=== PATIENT | male | born 1930 | race Caucasian/White ===

== ENCOUNTER 2016-10-27 07:03 | Outpatient (CLI) | END 2016-10-27 07:04 | disposition home or self-care (01) ==

== ENCOUNTER 2017-01-13 09:04 | Outpatient (CLI) | payer MEDICARE, BC | END 2017-01-13 09:05 | disposition home or self-care (01) | DX: E11.9 Type 2 diabetes mellitus without complications (principal) ==

== ENCOUNTER 2017-02-23 14:31 | Emergency (ER) | payer MEDICARE, BC ==
[2017-02-23] MEDS ORDERED: TETANUS/DIPHTHERIA/PERTUSSIS 0.5 ML SYRINGE IM ONE ×2 (15:23→15:26)
== END 2017-02-23 15:54 | disposition home or self-care (01) ==
DX: S61.012A Laceration without foreign body of left thumb without damage to nail, initial encounter (principal); W45.8XXA Other foreign body or object entering through skin, initial encounter; I10 Essential (primary) hypertension; E11.9 Type 2 diabetes mellitus without complications; Z86.73 Personal history of transient ischemic attack (TIA), and cerebral infarction without residual deficits; N40.0 Benign prostatic hyperplasia without lower urinary tract symptoms; M19.90 Unspecified osteoarthritis, unspecified site; F17.200 Nicotine dependence, unspecified, uncomplicated

== ENCOUNTER 2017-07-05 17:17 | Emergency (ER) | payer MEDICARE, BC ==
[2017-07-05] MEDS ORDERED: SODIUM CHLORIDE 0.9% 1,000 ML IV ONE (17:34)
[2017-07-05] MEDS ORDERED: HYDROmorphone 1 MG/ML SYRINGE IVP STA (17:34)
[2017-07-05] MEDS ORDERED: ONDANSETRON 4 MG/2 ML VIAL IVP STA (17:34)
--- NOTE | 2017-07-05 17:37 | ED Physician Documentation ---
PD HPI ABD PAIN - Stated complaint Stated Complaint: NVD - Chief complaint Chief Complaint: Abd Pain - History obtained from History obtained from: Patient - History of Present Illness Timing - onset: Other (87-year-old gentleman with history of renal colic status post lithotripsy, remotely. Also history of laparoscopic cholecystectomy and umbilical hernia repair, diabetes and hypertension. He developed a relatively sudden onset left-sided abdominal pain which is nonradiating and associated with nausea and vomiting over the last couple of hours. He was fine this morning except for chronic diarrhea which is no worse than normal. He has not had any blood from either end and there is no fever associated with this.) Review of Systems Ten Systems: 10 systems reviewed and negative Constitutional: denies: Fever, Chills Nose: denies: Rhinorrhea / runny nose, Congestion Cardiac: denies: Chest pain / pressure, Palpitations Respiratory: denies: Dyspnea, Cough PD PAST MEDICAL HISTORY - Past Medical History Cardiovascular: Hypertension Respiratory: None Neuro: CVA Endocrine/Autoimmune: Type 2 diabetes GI: None : Benign prostate hypertrophy HEENT: Chronic hearing loss Psych: None Musculoskeletal: Osteoarthritis, Fatigue Derm: None - Past Surgical History Past Surgical History: Yes General: Cholecystectomy, Colonoscopy, EGD, Other Ortho: Knee replacement - Present Medications Home Medications: Ambulatory Orders Medication Instructions Recorded Confirmed Atorvastatin [Lipitor] 20 mg PO DAILY 07/05/17 07/05/17 Clopidogrel [Plavix] 75 mg PO DAILY 07/05/17 07/05/17 Escitalopram [Lexapro] 20 mg PO DAILY 07/05/17 07/05/17 Famotidine 20 mg PO DAILY 07/05/17 07/05/17 Latanoprost 0.005% Ophth Drops 1 drops EACHEYE DAILY 07/05/17 07/05/17 [Xalatan Ophth Drops] Oxycodone HCl/Acetaminophen 1 - 2 tab PO Q4H PRN #15 tablet 07/05/17 [Percocet 5-325 mg Tablet] Tamsulosin [Flomax] 0.4 mg PO DAILY #14 capsule 07/05/17 - Allergies Allergies/Adverse Reactions: Allergies Allergy/AdvReac Type Severity Reaction Status Date / Time No Known Drug Allergies Allergy Verified 02/23/17 14:39 - Social History Does the pt smoke?: Yes Smoking Status: Current every day smoker Does the pt drink ETOH?: Yes Does the pt have substance abuse?: No - Family History Family history: reports: Non contributory - Immunizations Immunizations are current?: No Immunizations: TDAP >10years/unknown - POLST Patient has POLST: No PD ED PE NORMAL - Vitals Vital signs reviewed: Yes - General General: Alert and oriented X 3, No acute distress - HEENT HEENT: PERRL, EOMI - Neck Neck: Supple, no meningeal sign, No bony TTP - Cardiac Cardiac: RRR, No murmur - Respiratory Respiratory: No respiratory distress, Clear bilaterally - Abdomen Abdomen: Other (Soft with normal bowel tones, mild tenderness in the left lower quadrant without surgical signs.) - Back Back: No CVA TTP, No spinal TTP - Derm Derm: Normal color, Warm and dry - Extremities Extremities: No edema, No calf tenderness / cord - Neuro Neuro: Alert and oriented X 3, filler operator 2-12 intact, No motor deficit, No sensory deficit, Normal speech - Psych Psych: Normal mood, Normal affect Results - Vitals Vitals: Vital Signs - 24 hr 07/05/17 07/05/17 07/05/17 17:20 18:58 20:47 Temperature 36.7 C Heart Rate 89 88 80 Respiratory 20 18 16 Rate Blood Pressure 165/87 H 160/81 H 176/87 H O2 Saturation 96 95 95 Oxygen O2 Source Room air - Labs Labs: Laboratory Tests 07/05/17 07/05/17 07/05/17 17:50 17:50 17:50 WBC 9.5 RBC 4.49 L Hgb 14.6 Hct 41.9 L MCV 93.2 MCH 32.4 H MCHC 34.8 RDW 14.0 Plt Count 147 MPV 7.8 Neut # 7.9 H Lymph # 1.0 L [place] # 0.5 Eos # 0.1 Baso # 0.1 Absolute Nucleated RBC 0.00 Nucleated RBCs 0.0 Sodium 135 Potassium 4.0 Chloride 103 Carbon Dioxide 24 Anion Gap 8.0 BUN 24 H Creatinine 1.0 Estimated GFR (MDRD) 71 L Glucose 165 H Lactic Acid 1.5 Calcium 8.9 Total Bilirubin 2.3 H AST 24 ALT 17 Alkaline Phosphatase 57 Total Protein 8.2 Albumin 4.1 Globulin 4.1 Albumin/Globulin Ratio 1.0 Lipase 25 Urine Color Urine Clarity Urine pH Ur Specific [place] Urine Protein Urine Glucose (UA) Urine Ketones Urine Occult Blood Urine Nitrite Urine Bilirubin Urine Urobilinogen Ur Leukocyte Esterase Urine RBC Urine WBC Ur Squamous Epith Cells Urine Bacteria Ur Microscopic Review Urine Culture Comments 07/05/17 19:05 WBC RBC Hgb Hct MCV MCH MCHC RDW Plt Count MPV Neut # Lymph # [place] # Eos # Baso # Absolute Nucleated RBC Nucleated RBCs Sodium Potassium Chloride Carbon Dioxide Anion Gap BUN Creatinine Estimated GFR (MDRD) Glucose Lactic Acid Calcium Total Bilirubin AST ALT Alkaline Phosphatase Total Protein Albumin Globulin Albumin/Globulin Ratio Lipase Urine Color BROWN Urine Clarity HAZY Urine pH 5.5 Ur Specific [place] 1.020 Urine Protein 30 H Urine Glucose (UA) NEGATIVE Urine Ketones NEGATIVE Urine Occult Blood LARGE H Urine Nitrite NEGATIVE Urine Bilirubin NEGATIVE Urine Urobilinogen 0.2 (NORMAL) Ur Leukocyte Esterase NEGATIVE Urine RBC TNTC H Urine WBC 0-3 Ur Squamous Epith Cells RARE Squamous Urine Bacteria Rare Ur Microscopic Review INDICATED Urine Culture Comments NOT INDICATED - Rads (name of study) ct a/p Radiology: EMP read contemporaneously (5 x 4 mm mid left ureteral stone with hydronephrosis and hydroureter. He does have extensive retroperitoneal and pelvic adenopathy concerning for malignancy.) PD MEDICAL DECISION MAKING - ED course ED course: 87-year-old gentleman presents with acute left-sided abdominal pain most reminiscent of renal colic and he does have a 5 x 4 mm mid left ureteral stone on CT. Pain was easily controlled with a single dose of narcotics. The incidental findings on CT specifically which are concerning for potential malignancy were discussed with him and follow-up with his primary care physician will be obtained. Departure - Departure Disposition: 01 Home, Self Care Clinical Impression: Renal colic on left side, Retroperitoneal lymphadenopathy Condition: Good Record reviewed to determine appropriate education?: Yes Instructions: ED Stone Renal W Colic Prescriptions: Tamsulosin [Flomax] 0.4 mg PO DAILY #14 capsule Oxycodone HCl/Acetaminophen [Percocet 5-325 mg Tablet] 1 - 2 tab PO Q4H PRN #15 tablet PRN Reason: Pain Comments: FOLLOWUP WITH DR VAZQUEZ REGARDING YOUR RETROPERITONEAL LYMPHADENOPATHY WHICH COULD BE CANCEROUS. ALSO A UROLOGIST FOR YOUR KIDNEY STONES- THE CLOSEST IS IN [place] IF THE PAIN IS NOT GONE IN A FEW DAYS Your blood pressure was elevated today on check into the emergency department. This does not mean that you have hypertension, it is a common phenomenon to come to the emergency department and have elevated blood pressure. I recommend that she see your primary care physician within the week to have it rechecked when you are feeling better. Do not drink or drive while taking narcotic pain medication. Note that many narcotic pain relievers also contain Tylenol/acetaminophen. Please ensure that your total dose of acetaminophen from all sources does not exceed 3 g (3000 mg) per day. You may get constipated while on this medication. Take a stool softener such as Colace twice a day while you are on it. Also add an xdio-alu-qzxrhxn laxative such as senna or MiraLAX on any day that you do not have a bowel movement. If you received a narcotic pain medication or sedative while in the emergency department, do not drive for the next 24 hours. Discharge Date/Time: 07/05/17 20:48
[2017-07-05] MEDS ORDERED: HYDROmorphone 1 MG/ML SYRINGE ONE (17:41)
[2017-07-05] MEDS ORDERED: ONDANSETRON 4 MG/2 ML VIAL ONE (17:41)
[2017-07-05 18:04] LABS: BASOPHILS # (AUTO) 0.1 10^3/uL (0.0-0.1); BASOPHILS % (AUTO) 0.5 %; EOSINOPHILS # (AUTO) 0.1 10^3/uL (0.0-0.7); EOSINOPHILS % (AUTO) 1.1 %; HCT - HEMATOCRIT 41.9 % (42.0-52.0); HGB - HEMOGLOBIN 14.6 g/dL (14.0-18.0); MEAN CORPUSCULAR HEMOGLOBIN 32.4 pg (27.0-31.0); MEAN CORPUSCULAR HGB CONC 34.8 g/dL (32.0-36.0); MEAN CORPUSCULAR VOLUME 93.2 fL (80.0-94.0); MEAN PLATELET VOLUME 7.8 fL (7.4-11.4); MONOCYTES # (AUTO) 0.5 10^3/uL (0.0-1.0); MONOCYTES % (AUTO) 5.3 %; NEUTROPHILS # (AUTO) 7.9 10^3/uL (1.5-6.6); NEUTROPHILS % (AUTO) 83.1 %; RED BLOOD COUNT 4.49 10^6/uL (4.70-6.10); UNCORRECTED WHITE BLOOD COUNT 9.5 x10^3/uL; WHITE BLOOD COUNT 9.5 x10^3/uL (4.8-10.8)
[2017-07-05 18:16] LABS: BILIRUBIN,TOTAL 2.3 mg/dL (0.2-1.0); CALCIUM 8.9 mg/dL (8.5-10.3); TOTAL PROTEIN 8.2 g/dL (6.7-8.2)
[2017-07-05] MEDS ORDERED: IOPAMIDOL-300 100 ML VIAL IVP ONE (19:01)
[2017-07-05 19:13] LABS: BILIRUBIN,URINE NEGATIVE (NEGATIVE); PH,URINE 5.5 PH (5.0-7.5)
[2017-07-05 19:14] LABS: UA w/ MICROSCOPIC CHARGE YES
[2017-07-05 19:19] LABS: UR CULTURE IF IND NOT INDICATED; WBC,URINE 0-3 /HPF (0-3)
--- NOTE | 2017-07-05 20:18 | CT Preliminary Report ---
Exam: CT Abdomen/Pelvis W/ IMPRESSION: 1. Obstructing 5 x 4 mm mid left ureteral stone results in marked left hydroureter and hydronephrosis . Nonobstructing right-sided renal stones. No enhancing renal mass. 2. Extensive retroperitoneal and pelvic adenopathy. Statistically, in a patient of this age group, pr ostate cancer is high on the differential. Additional diagnostic considerations include lymphoma. Cor relate with history of malignancy. 3. Gallbladder surgically absent. Common bile duct is dilated. Mild pancreatic atrophy. If the patien t has abnormal LFTs, consider obtaining MRI of the abdomen with a liver/pancreas protocol. [facility] SITE ID: [id number]
[2017-07-05] MEDS ORDERED: TAMSULOSIN 0.4 MG CAPSULE PO STA (20:26)
[2017-07-05] MEDS ORDERED: oxyCODONE/ACET 5/325 Prepack 4 PO STA (20:26)
--- NOTE | 2017-07-05 20:40 | CT Report ---
EXAM: CT ABDOMEN AND PELVIS EXAM DATE: 07/05/2017 06:50 PM. CLINICAL HISTORY: IV only, L abd pain. COMPARISONS: 12/25/2012. TECHNIQUE: Routine helical CT imaging was performed through the abdomen and pelvis. IV contrast: 100 mL Isovue-300. Enteric contrast: No. Reconstructions: Coronal and sagittal. In accordance with CT protocol optimization, one or more of the following dose reduction techniques w ere utilized for this exam: automated exposure control, adjustment of mA and/or KV based on patient s ize, or use of iterative reconstructive technique. FINDINGS: Lung Bases: Elevated right hemidiaphragm with mild right lower lobe atelectasis. Evaluation of the lauren ng parenchyma limited due to respiratory artifacts. Small hiatal hernia. Mild cardiac enlargement. Co ronary artery disease in the left anterior descending coronary artery. No pericardial effusion. Liver: Mild intrahepatic and central biliary dilation. Common bile duct measures 1.3 cm. Gallbladder surgically absent. No liver mass. 1 cm low-density left liver cyst on image 25. Gallbladder/Bile Ducts: Unremarkable. Spleen: Normal. Pancreas: Pancreas is mildly atrophic. No pancreatic calcifications identified. No definite pancreati c head mass. No peripancreatic inflammation. Adrenal Glands: Normal. Kidneys: Obstructing 5 x 4 mm mid left ureteral stone on image 69 results in marked left hydronephros is and perinephric fat stranding. No left-sided enhancing renal mass or nonobstructing renal stones. Remainder of the left ureter is otherwise unremarkable. No right renal mass. Mild right perinephric f at stranding. No right-sided hydronephrosis. 4 mm mid right and 4.5 mm right inferior nonobstructing renal stones. No obstructing right ureteral stone. Peritoneal Cavity/Bowel: Extensive retroperitoneal and pelvic adenopathy. Residential Property Manager nodes includ e the followin. 2.5 x 2 cm left pelvic sidewall node, image 83. 2. 1.9 x 3.7 cm right pelvic sidewall/external iliac node on image 85. 3. Left 2.8 x 3.4 cm periaortic node at the L2-L3 level, image 3, 49. Extensive diverticulosis centered in the sigmoid region. Mild wall thickening is present in the mid a nd proximal sigmoid and mid and distal left colon without significant adjacent stranding. Moderate th ickening is present in the distal small bowel loop as seen on image 5, 13. No pneumatosis or pneumope ritoneum are noted. No loculated fluid collections concerning for an abscess. Mild mesenteric strandi ng of unclear significance present particularly in the pelvis. No significant ascites. Pelvic Organs: Marked enlargement of the prostate and seminal vesicles. Coarse prostate calcification s are noted. Low density ill-defined regions are seen in the anterior prostate gland on image 94. Vasculature: Diffuse atheromatous plaques are present in the abdominal aorta and branch vessels. No a neurysm. Normal IVC. Bones: No significant abnormality. Other: None. IMPRESSION: 1. Obstructing 5 x 4 mm mid left ureteral stone results in marked left hydroureter and hydronephrosis . Nonobstructing right-sided renal stones. No enhancing renal mass. 2. Extensive retroperitoneal and pelvic adenopathy. Statistically, in a patient of this age group, pr ostate cancer is high on the differential. Additional diagnostic considerations include lymphoma. Cor relate with history of malignancy. 3. Gallbladder is surgically absent. Common bile duct is dilated. Mild pancreatic atrophy. If the pat ient has abnormal LFTs, consider obtaining MRI of the abdomen with a liver/pancreas protocol. [facility] Referring Provider Line: [phone] SITE ID: [id number]
[2017-07-05] MEDS ORDERED: oxyCODONE/ACET 5/325 Prepack 4 PO ONE (20:41)
[2017-07-05] MEDS ORDERED: TAMSULOSIN 0.4 MG CAPSULE ONE (20:41)
[2017-07-05 20:48] VITALS: BP 176/87
== END 2017-07-05 20:48 | disposition home or self-care (01) ==
LOC: ED 17:17
DX: N20.1 Calculus of ureter (principal); R59.1 Generalized enlarged lymph nodes; I10 Essential (primary) hypertension; F17.200 Nicotine dependence, unspecified, uncomplicated; Z86.73 Personal history of transient ischemic attack (TIA), and cerebral infarction without residual deficits; Z96.659 Presence of unspecified artificial knee joint
CPT/HCPCS: 36415; 74177; 80053; 81001; 83605; 83690; 85025; 96374; 96375; 99283; 99284; A9270; J1170; Q9967; 81003; 87086

== ENCOUNTER 2017-07-11 15:07 | Outpatient (CLI) | payer MEDICARE, BC ==
[2017-07-11 21:03] LABS: PSA FREE 43.55 ng/mL (0.16-2.81)
== END 2017-07-11 15:08 | disposition home or self-care (01) ==
LOC: LAB.R 15:07
PROVIDERS: ATTEND Internal Medicine
DX: R59.0 Localized enlarged lymph nodes (principal)
CPT/HCPCS: 84154

== ENCOUNTER 2017-07-16 13:29 | Outpatient (CLI) | payer MEDICARE, BC | END 2017-07-16 13:30 | disposition EMS.NT | LOC: EMS 13:29 | PROVIDERS: ATTEND Surgery | DX: Z03.89 Encounter for observation for other suspected diseases and conditions ruled out (principal); W06.XXXA Fall from bed, initial encounter; Y92.003 Bedroom of unspecified non-institutional (private) residence as the place of occurrence of the external cause ==

== ENCOUNTER 2017-09-09 08:56 | Outpatient (CLI) | payer MEDICARE, BC ==
--- NOTE | 2017-09-10 16:14 | Nuclear Medicine Report ---
REVISED: THIS REPORT WAS ORIGINALLY SIGNED ON 09/10/2017 @ 1614. EXAM CODE REVISED ON 09/12/2017. EXAM: BONE SCAN EXAM DATE: 09/09/2017 01:17 PM. CLINICAL HISTORY: Metastatic prostate cancer. COMPARISON: CT 07/05/2017. TECHNIQUE: Following the intravenous administration of 32.5 mCi of technetium 99m MDP and an appropriate delay, a whole-body scan was performed in anterior and posterior projections. Site-specific spot views of the region of interest were obtained in various projections. FINDINGS: Exam Quality: Normal overall osseous radiotracer uptake. Physiological tracer uptake in bilateral collecting systems. Skull: No focal uptake. Thorax: Small foci of mzqu-uk-umiutbei increased activity right lateral seventh and eighth ribs. Pelvis: No focal lesions. Spine: Small focus of moderate activity left posterior T7 vertebra versus costovertebral junction. Mild increased activity L4-L5 and L5-S1 disks and facets, likely degenerative. Lower extremities: Bilateral knee arthroplasty defects. No abnormal activity. IMPRESSION: 1. The 2 adjacent foci of right anterolateral rib activity are more likely rib fractures. 2. Left T7 vertebral/costovertebral junction activity is indeterminate and may either represent an additional fracture of the posterior rib origin versus bony metastasis. No correlative lesion seen on the recent CT. [facility] Referring Provider Line: [phone] SITE ID: [id number]
== END 2017-09-09 08:57 | disposition home or self-care (01) ==
LOC: DI 08:56
PROVIDERS: ATTEND Internal Medicine Hematology & Oncology
DX: C61 Malignant neoplasm of prostate (principal)
CPT/HCPCS: 78306; A9503; 78305

== ENCOUNTER 2017-10-18 08:00 | Outpatient (CLI) | payer MEDICARE, BC ==
[2017-10-18 16:22] LABS: ALBUMIN/GLOBULIN RATIO 1.3 (1.0-2.2); BILIRUBIN,TOTAL 2.1 mg/dL (0.2-1.0); BUN - BLOOD UREA NITROGEN 25 mg/dL (6-20); CALCIUM 9.4 mg/dL (8.5-10.3); CARBON DIOXIDE - CO2 28 mmol/L (21-32); CHLORIDE 101 mmol/L (101-111); CHOLESTEROL 90 mg/dL; CREATININE 0.9 mg/dL (0.6-1.2); GFR - MDRD 80 (>89); GLUCOSE 117 mg/dL (70-100); HDL CHOLESTEROL 46 mg/dL; LDL/HDL RATIO 0.5 (<3.6); POTASSIUM 4.1 mmol/L (3.5-5.0); SODIUM 137 mmol/L (135-145); TOTAL PROTEIN 7.9 g/dL (6.7-8.2); TRIGLYCERIDES 111 mg/dL; VLDL CHOLESTEROL 22 mg/dL
[2017-10-18 16:48] LABS: BASOPHILS % (AUTO) 0.6 %; EOSINOPHILS # (AUTO) 0.3 10^3/uL (0.0-0.7); EOSINOPHILS % (AUTO) 4.6 %; HCT - HEMATOCRIT 38.1 % (42.0-52.0); HGB - HEMOGLOBIN 13.3 g/dL (14.0-18.0); LYMPHOCYTES # (AUTO) 1.6 10^3/uL (1.5-3.5); LYMPHOCYTES % (AUTO) 25.2 %; MEAN CORPUSCULAR HEMOGLOBIN 32.5 pg (27.0-31.0); MEAN CORPUSCULAR VOLUME 92.9 fL (80.0-94.0); MEAN PLATELET VOLUME 8.2 fL (7.4-11.4); MONOCYTES # (AUTO) 0.4 10^3/uL (0.0-1.0); MONOCYTES % (AUTO) 7.1 %; NEUTROPHILS % (AUTO) 62.5 %; RED CELL DISTRIBUTION WIDTH 14.1 % (12.0-15.0); UNCORRECTED WHITE BLOOD COUNT 6.3 x10^3/uL; WHITE BLOOD COUNT 6.3 x10^3/uL (4.8-10.8)
[2017-10-18 18:13] LABS: HEMOGLOBIN A1C 0.51 g/dL
== END 2017-10-18 08:01 | disposition home or self-care (01) ==
LOC: LAB.R 08:00
PROVIDERS: ATTEND Internal Medicine
DX: K27.9 Peptic ulcer, site unspecified, unspecified as acute or chronic, without hemorrhage or perforation (principal); E11.9 Type 2 diabetes mellitus without complications; I63.9 Cerebral infarction, unspecified; M10.9 Gout, unspecified; Z79.899 Other long term (current) drug therapy
CPT/HCPCS: 80053; 80061; 83036; 85025

== ENCOUNTER 2018-01-27 17:15 | Outpatient (CLI) | payer MEDICARE, BC | END 2018-01-27 17:16 | disposition EMS.NT | LOC: EMS 17:15 | PROVIDERS: ATTEND Surgery | DX: Z03.89 Encounter for observation for other suspected diseases and conditions ruled out (principal) ==

== ENCOUNTER 2018-03-06 19:10 | Emergency (ER) | payer MEDICARE, BC ==
--- NOTE | 2018-03-06 19:56 | ED Physician Documentation ---
PD HPI TRUNK INJURY - Stated complaint Stated Complaint: GLF - CHEST DISCOMFORT - Chief complaint Chief Complaint: General - History obtained from History obtained from: Patient, Family - History of Present Illness Location: Anterior chest, Right chest, Other (also bumped his head) Type of injury: Fall (he says he lost balance and fell in the garage. Has general weakness and poor balance for awhile, per . Uses walker.) Timing - onset: Today (at 3 pm, with pain right anterolateral chest.) Timing - duration: Hours (4) Timing - details: Abrupt onset, Still present Quality: Pain, Aching Worsened by: Moving, Palpating, Other (deep breathing) Associated symtptoms: Weakness (generalized). No: Numbness, Tingling, Swelling Contributing factors: Anticoagulated. No: Work related Where injury occured: Home Similar symptoms before: Has not had sx before Recently seen: Not recently seen Review of Systems Constitutional: denies: Fever, Chills Nose: denies: Rhinorrhea / runny nose, Congestion Throat: denies: Sore throat Cardiac: denies: Palpitations Respiratory: denies: Dyspnea, Cough, Wheezing GI: denies: Abdominal Pain, Nausea, Vomiting, Diarrhea, Bloody / black stool : denies: Dysuria, Frequency Skin: reports: Abrasion (s) (right fingers with the fall, also on right knee.) Neurologic: reports: Generalized weakness, Head injury. denies: Focal weakness , Numbness, Difficulty speaking, Confused, Altered mental status, Headache, LOC Psychiatric: denies: Anxiety, Insomnia PD PAST MEDICAL HISTORY - Past Medical History Past Medical History: Yes Cardiovascular: Hypertension Respiratory: None Neuro: CVA Endocrine/Autoimmune: Type 2 diabetes GI: None : Benign prostate hypertrophy HEENT: Chronic hearing loss Psych: None Musculoskeletal: Osteoarthritis, Fatigue Derm: None Other Past Medical History: USES A WALKER.... - Past Surgical History Past Surgical History: Yes General: Cholecystectomy, Colonoscopy, EGD, Other Ortho: Knee replacement - Present Medications Home Medications: Ambulatory Orders Medication Instructions Recorded Confirmed Atorvastatin [Lipitor] 20 mg PO DAILY 07/05/17 03/06/18 Clopidogrel [Plavix] 75 mg PO DAILY 07/05/17 03/06/18 Escitalopram [Lexapro] 20 mg PO DAILY 07/05/17 03/06/18 Latanoprost 0.005% Ophth Drops 1 drops EACHEYE DAILY 07/05/17 03/06/18 [Xalatan Ophth Drops] Allopurinol 150 mg PO DAILY 09/06/17 03/06/18 Cholecalciferol (Vitamin D3) 1,000 unit PO DAILY 09/06/17 03/06/18 [Vitamin D3] Loperamide HCl [Anti-Diarrheal] 2 mg PO DAILY PRN 09/06/17 03/06/18 Loratadine 10 mg PO DAILY 09/06/17 03/06/18 Multivitamin [Multivitamins] 1 tab PO DAILY 09/06/17 03/06/18 Tramadol HCl 50 mg PO Q6H PRN #15 tablet 03/06/18 - Allergies Allergies/Adverse Reactions: Allergies Allergy/AdvReac Type Severity Reaction Status Date / Time No Known Drug Allergies Allergy Verified 03/06/18 19:17 - Social History Does the pt smoke?: Yes Smoking Status: Current every day smoker Does the pt drink ETOH?: Yes Does the pt have substance abuse?: No - Immunizations Immunizations are current?: No Immunizations: TDAP >10years/unknown - POLST Patient has POLST: No PD ED PE NORMAL - Vitals Vital signs reviewed: Yes - General General: Alert and oriented X 3, No acute distress, Well developed/nourished - HEENT HEENT: Pharynx benign - Neck Neck: Supple, no meningeal sign, No adenopathy - Cardiac Cardiac: RRR, No murmur - Respiratory Respiratory: Clear bilaterally, Other (right chest wall anterolateral at level of ribs 4-6 with local tenderness. No crepitance. ) - Abdomen Abdomen: Soft, Non tender, Non distended - Back Back: No CVA TTP - Derm Derm: Normal color, Warm and dry - Extremities Extremities: No deformity, No tenderness to palpate, Normal ROM s pain, No edema , Other (anterior knee with abrasion, no effusion and good ROM. Right fingers with abrasions on knuckles, but good ROM and rotor plate washer. No bony tenderness. ) - Neuro Neuro: Alert and oriented X 3, No motor deficit, Normal speech Eye Opening: Spontaneous Motor: Obeys Commands Verbal: Oriented GCS Score: 15 Results - Vitals Vitals: Vital Signs - 24 hr 03/06/18 03/06/1818 19:13 19:26 20:01 Temperature 37.3 C Heart Rate 100 96 94 Respiratory 18 17 20 Rate Blood Pressure 139/79 H 158/100 H 128/78 O2 Saturation 97 97 95 03/06/18 03/06/18 03/06/18 20:10 20:30 20:41 Temperature Heart Rate 93 93 Respiratory 18 19 19 Rate Blood Pressure 116/61 O2 Saturation 96 94 03/06/18 03/06/18 03/06/18 21:07 21:36 21:37 Temperature Heart Rate 91 89 90 Respiratory 18 18 Rate Blood Pressure 142/75 H 114/73 O2 Saturation 95 95 03/06/18 22:10 Temperature Heart Rate 89 Respiratory 18 Rate Blood Pressure 116/77 O2 Saturation 95 Oxygen O2 Source Room air - Rads (name of study) head CT Radiology: Prelim report reviewed (no ICH; prior CVA noted), EMP read contemporaneously chest CT Radiology: Prelim report reviewed (no fractures, no organ injury. ) Departure - Departure Disposition: 01 Home, Self Care Clinical Impression: Accidental fall Qualifiers: Encounter type: initial encounter Qualified Code(s): W19.XXXA - Unspecified fall, initial encounter Chest wall contusion Qualifiers: Encounter type: initial encounter Laterality: right Qualified Code(s): S20.211A - Contusion of right front wall of thorax, initial encounter Finger abrasion Qualifiers: Encounter type: initial encounter Qualified Code(s): S60.419A - Abrasion of unspecified finger, initial encounter Condition: Stable Record reviewed to determine appropriate education?: Yes Instructions: ED Contusion Chest Wall Follow-Up: Charles Kelly MD [Primary Care Provider] - Prescriptions: Tramadol HCl 50 mg PO Q6H PRN #15 tablet PRN Reason: Pain Comments: There is no signs of fractures or lung injury on the CT scan. It will certainly be sore in the chest wall just from the fall. Use Tylenol if needed for pains 4 times a day. Add tramadol if needed for worse pain. This should improve over the next several days. Follow-up if worsening problems. Cleanse the finger abrasions daily or twice daily and apply ointment and keep them clean.
[2018-03-06] MEDS ORDERED: MORPHINE 10 MG/ML VIAL IVP STA (20:16)
[2018-03-06] MEDS ORDERED: ONDANSETRON 4 MG/2 ML VIAL IVP STA (20:16)
[2018-03-06] MEDS ORDERED: IOPAMIDOL-300 100 ML VIAL ONE (20:34)
[2018-03-06] MEDS ORDERED: IOPAMIDOL-300 100 ML VIAL IVP ONE (21:02)
--- NOTE | 2018-03-06 21:56 | CT Report ---
EXAM: CT HEAD EXAM DATE: 03/06/2018 09:05 PM. CLINICAL HISTORY: Fell and struck head; on Plavix. COMPARISON: 05/19/2016. TECHNIQUE: Multiaxial CT images were obtained from the foramen magnum to the vertex. Reformats: Coron al. IV contrast: None. In accordance with CT protocol optimization, one or more of the following dose reduction techniques w ere utilized for this exam: automated exposure control, adjustment of mA and/or KV based on patient s ize, or use of iterative reconstructive technique. FINDINGS: Parenchyma: 4 cm area of cortical and subcortical encephalomalacia at the right frontal operculum and upper anterior right insula, new since 2015. Small area of chronic cortical encephalomalacia at the right posterior parietal convexity, as before. Extensive patchy hypodensity in the bilateral cerebral white matter and to a lesser extent bilateral basal ganglia consistent with chronic small vessel isc hemic change, progressive since 2016. No high-density lesions. No mass effect. Mercado-white differentia tion otherwise is intact. Extraaxial Spaces: Normal for age. No subdural or epidural collections identified. Ventricles: Mild generalized ventriculomegaly, as before. Sinuses and Orbits: Imaged paranasal sinuses, orbits, and mastoids show no significant abnormality. Bones: No evidence of fracture or calvarial defect. Other: No scalp hematoma is identified. Bilateral cataract surgery. Mild calcification in bilateral c avernous internal carotid arteries and proximal intracranial bilateral vertebral arteries. IMPRESSION: 1. No intracranial hemorrhage. 2. 4 cm chronic infarct at the right frontal operculum and adjacent anterosuperior right insula, new since 2015. 3. Small chronic cortical infarct posterior right parietal convexity, as before. 4. Extensive chronic small vessel ischemic change bilaterally, progressive since 2016. [facility] Referring Provider Line: [phone] SITE ID: [id number]
--- NOTE | 2018-03-06 21:56 | CT Preliminary Report ---
Exam: CT HEAD W/O IMPRESSION: 1. No intracranial hemorrhage. 2. 4 cm chronic infarct at the right frontal operculum and adjacent anterosuperior right insula, new since 2016. 3. Small chronic cortical infarct posterior right parietal convexity, as before. 4. Extensive chronic small vessel ischemic change bilaterally, progressive since 2016. [facility] SITE ID: [id number]
--- NOTE | 2018-03-06 22:05 | CT Report ---
EXAM: CT CHEST EXAM DATE: 03/06/2018 09:05 PM. CLINICAL HISTORY: Fall and struck right chest; on Plavix. COMPARISONS: CT abdomen and pelvis 07/05/2017, chest radiograph 11/26/2014. TECHNIQUE: Routine helical CT imaging was performed through the chest. IV contrast: 80 cc Isovue 300. Reconstructions: Coronal and sagittal. In accordance with CT protocol optimization, one or more of the following dose reduction techniques w ere utilized for this exam: automated exposure control, adjustment of mA and/or KV based on patient s ize, or use of iterative reconstructive technique. FINDINGS: Lungs/Pleura: Mild right hemidiaphragm elevation, as before. Mild dependent opacity at right greater than left lung bases similar to before most consistent with atelectasis. No interstitial abnormality. No emphysema. Expiratory phase central airways are noted. No pleural fluid or pneumothorax. Mediastinum: Heart size is normal. Mild calcified plaque in the normal caliber thoracic and upper abd ominal aorta. Central pulmonary arteries are normal in size. Lower thyroid gland and esophagus are un remarkable. There are shotty mediastinal lymph nodes, nonspecific. Bones: There is a small left posterior superior T7 vertebral body bone island. No right rib fracture is identified. Visualized Abdomen: Gallbladder is surgically absent. As before, there are at least 2 subcentimeter c ircumscribed hypodensities in the liver suggesting cysts. There is no significant biliary ductal dila tation. There are small right intrarenal calculi without hydronephrosis. There is no free fluid or fr ee air. There is incompletely visualized mild left greater than right intrarenal periaortic lymphaden opathy which appears decreased from before. Other: No chest wall hematoma is identified. IMPRESSION: 1. No evidence of injury in the chest. 2. Mild right hemidiaphragm elevation and mild right basilar atelectasis, as before. 3. Incompletely visualized retroperitoneal lymphadenopathy which appears decreased, presumably treate d neoplasm. There is also some shotty mediastinal lymphadenopathy, not visualized on the prior CT abd omen pelvis. 4. Nonobstructing right nephrolithiasis. [facility] Referring Provider Line: [phone] SITE ID: [id number]
[2018-03-06 22:11] VITALS: BP 116/77
== END 2018-03-06 22:34 | disposition home or self-care (01) ==
LOC: ED 19:10
DX: S20.211A Contusion of right front wall of thorax, initial encounter (principal); S60.419A Abrasion of unspecified finger, initial encounter; W18.39XA Other fall on same level, initial encounter; Y92.009 Unspecified place in unspecified non-institutional (private) residence as the place of occurrence of the external cause; I10 Essential (primary) hypertension; E11.9 Type 2 diabetes mellitus without complications; M19.90 Unspecified osteoarthritis, unspecified site; N40.0 Benign prostatic hyperplasia without lower urinary tract symptoms; Z86.73 Personal history of transient ischemic attack (TIA), and cerebral infarction without residual deficits; Z79.02 Long term (current) use of antithrombotics/antiplatelets; F17.200 Nicotine dependence, unspecified, uncomplicated
CPT/HCPCS: 70450; 71260; 93005; 96374; 96375; 99283; 99284; Q9967

== ENCOUNTER 2018-03-19 16:33 | Outpatient (CLI) | payer MEDICARE, BC | END 2018-03-19 16:34 | disposition critical access hospital (66) | LOC: EMS 16:33 | PROVIDERS: ATTEND Surgery | DX: M54.5 Low back pain (principal); W18.30XA Fall on same level, unspecified, initial encounter; Y92.000 Kitchen of unspecified non-institutional (private) residence as the place of occurrence of the external cause | CPT/HCPCS: A0425; A0429 ==

== ENCOUNTER 2018-03-19 16:42 | Emergency (ER) | payer MEDICARE, BC ==
[2018-03-19 16:49] VITALS: BP 136/72
--- NOTE | 2018-03-19 17:24 | ED Physician Documentation ---
PD HPI Fall - Stated complaint Stated Complaint: FALL - Chief complaint Chief Complaint: Back Pain - History obtained from History obtained from: Patient, Family, EMS - History of Present Illness Mechanism of injury: Tripped Where injury occurred: Home Pain level max: 8 Pain level now: 5 Quality of pain: Pain Associated symptoms: No: LOC, Neck pain, Weakness, Paresthesias, Dyspnea, Nausea / vomiting, Hematemesis Symptoms improve with: Rest Worsens with: Movement Contributing factors: Anticoagulated (plavix) - Additional information Additional information: Patient was bending over and lost his balance when he stood up. States fell and injured his back. Did not strike his head. Denies vomiting. No LOC. no numbness or weakness. No headache. no lightheadedness. Review of Systems Constitutional: denies: Fever, Chills Respiratory: denies: Cough GI: denies: Abdominal Pain, Nausea, Vomiting, Diarrhea Skin: denies: Rash Musculoskeletal: denies: Neck pain Neurologic: denies: Focal weakness, Numbness, Confused, Altered mental status, Headache PD PAST MEDICAL HISTORY - Past Medical History Past Medical History: Yes Cardiovascular: Hypertension Respiratory: None Neuro: CVA Endocrine/Autoimmune: Type 2 diabetes GI: None : Benign prostate hypertrophy HEENT: Chronic hearing loss Psych: None Musculoskeletal: Osteoarthritis, Fatigue Derm: None - Past Surgical History Past Surgical History: Yes General: Cholecystectomy, Colonoscopy, EGD, Other Ortho: Knee replacement - Present Medications Home Medications: Ambulatory Orders Medication Instructions Recorded Confirmed Atorvastatin [Lipitor] 20 mg PO DAILY 07/05/17 03/07/18 Clopidogrel [Plavix] 75 mg PO DAILY 07/05/17 03/07/18 Escitalopram [Lexapro] 20 mg PO DAILY 07/05/17 03/07/18 Latanoprost 0.005% Ophth Drops 1 drops EACHEYE DAILY 07/05/17 03/07/18 [Xalatan Ophth Drops] Allopurinol 150 mg PO DAILY 09/06/17 03/07/18 Cholecalciferol (Vitamin D3) 1,000 unit PO DAILY 09/06/17 03/07/18 [Vitamin D3] Loperamide HCl [Anti-Diarrheal] 2 mg PO DAILY PRN 09/06/17 03/07/18 Loratadine 10 mg PO DAILY 09/06/17 03/07/18 Multivitamin [Multivitamins] 1 tab PO DAILY 09/06/17 03/07/18 Tramadol HCl 50 mg PO Q6H PRN #15 tablet 03/06/18 03/07/18 Hydrocodone/Acetaminophen 1 - 2 each PO Q6H PRN #14 tablet 03/19/18 [Hydrocodon-Acetaminophen 5-325] - Allergies Allergies/Adverse Reactions: Allergies Allergy/AdvReac Type Severity Reaction Status Date / Time No Known Drug Allergies Allergy Verified 03/06/18 19:17 - Social History Does the pt smoke?: Yes Smoking Status: Current every day smoker Does the pt drink ETOH?: Yes Does the pt have substance abuse?: No - Immunizations Immunizations are current?: No Immunizations: TDAP >10years/unknown - POLST Patient has POLST: No PD ED PE NORMAL - Vitals Vital signs reviewed: Yes - General General: Alert and oriented X 3, No acute distress - HEENT HEENT: PERRL, Moist mucous membranes - Neck Neck: Supple, no meningeal sign, No bony TTP - Cardiac Cardiac: RRR - Respiratory Respiratory: No respiratory distress, Clear bilaterally - Abdomen Abdomen: Soft, Non tender, Non distended - Back Back: Other (mild low lumbar ttp around L4-L5. no upper L spine TTP. No stepoff or deformity.) - Derm Derm: Warm and dry, No rash - Extremities Extremities: No deformity, No tenderness to palpate, Normal ROM s pain - Neuro Neuro: Alert and oriented X 3, supervising producer 2-12 intact, No motor deficit, No sensory deficit, Normal speech Eye Opening: Spontaneous Motor: Obeys Commands Verbal: Oriented GCS Score: 15 Results - Vitals Vitals: Vital Signs - 24 hr 03/19/18 16:45 Temperature 37.1 C Heart Rate 93 Respiratory 20 Rate Blood Pressure 136/72 H O2 Saturation 95 Oxygen O2 Source Room air - Rads (name of study) L spine xray Radiology: Prelim report reviewed, EMP read contemporaneously, See rad report ( Age-indeterminate mild L1 vertebral body height loss since July 20 CT. If this is a section of focal tenderness consider further evaluation with CT. Multilevel degenerative disc disease most pronounced and severe at L3-L4 through L5-S1 progressive L4-L5 compared to 2006. Moderate facet arthropathy in the lower lumbar spine as before. Unchanged grade 1 retrolisthesis of L3 on L4) PD MEDICAL DECISION MAKING - ED course Complexity details: reviewed results, re-evaluated patient, considered differential, d/w patient, d/w family ED course: Patient is an 87 year old male s/p GLF at home today. No headache or head injury. No neck pain. Has discomfort in the low lumbar spine approx L5. No upper L spine pain to suggest fracture there. Pain well controlled. Ambulating well with a walker. Will continue supportive care and follow up with his PCP. Patient and family counseled regarding signs and symptoms for which I believe and urgent re-evaluation would be necessary. Patient with good understanding of and agreement to plan and is comfortable going home at this time This document was made in part using voice recognition software. While efforts are made to proofread this document, sound alike and grammatical errors may occur. Departure - Departure Disposition: 01 Home, Self Care Clinical Impression: Fall Qualifiers: Encounter type: initial encounter Qualified Code(s): W19.XXXA - Unspecified fall, initial encounter Back pain Qualifiers: Back pain location: low back pain Chronicity: acute Back pain laterality: midline Sciatica presence: without sciatica Qualified Code(s): M54.5 - Low back pain Condition: Good Instructions: ED Low Back Pain Injury Follow-Up: Charles Kelly MD [Primary Care Provider] - Within 1 week Prescriptions: Hydrocodone/Acetaminophen [Hydrocodon-Acetaminophen 5-325] 1 - 2 each PO Q6H PRN #14 tablet PRN Reason: pain Comments: Return if you worsen. You need to use a walker to help you ambulate at home. Do not drink alcohol or drive while on narcotic pain medicine. Note that many narcotic pain relievers also contain tylenol/acetaminophen. Please ensure that your total dose of acetaminophen from all sources does not exceed 3 grams (3000mg) per day. You may constipated on this medication, take a stool softener such as "Colace" twice a day while you are on it. Also recommend a oghl-ask-xuoghja laxative such as senna or MiraLAX any day that you do not have a bowel movement. If you received narcotic pain medication in the emergency department, do not drive or operate machinery for the next 24 hours. Discharge Date/Time: 03/19/18 20:19
[2018-03-19] MEDS ORDERED: HYDROcod/ACETAM 5/325 MG TABLET PO STA (17:40)
--- NOTE | 2018-03-19 18:19 | XRAY Preliminary Report ---
Exam: XR LUMBAR SPINE 2 VIEW IMPRESSION: 1. Age-indeterminate mild L1 vertebral body height loss since June 2017 CT. If this is a second focal tenderness, consider further evaluation with CT. 2. Multilevel degenerative disk disease, most pronounced and severe at L3-L4 through L5-S1, progressi ve L4-L5 compared to 2006. 3. Moderate facet arthropathy in the lower lumbar spine, as before. 4. Unchanged grade 1 retrolisthesis of L3 on L4. [facility] SITE ID: [id number]
--- NOTE | 2018-03-19 18:19 | XRAY Report ---
EXAM: LUMBOSACRAL SPINE RADIOGRAPHY EXAM DATE: 03/19/2018 06:06 PM. CLINICAL HISTORY: Low back pain post fall. COMPARISONS: Lumbar spine radiographs. 06/26/2006. CT abdomen/pelvis 07/05/2017. TECHNIQUE: 2 views. FINDINGS: Alignment: Mild left convex curvature centered at L3-L4 measuring approximately 8 degrees. Compared t o prior lumbar spine radiograph, unchanged grade 1 retrolisthesis of L3 on L4 measuring 6 mm. Bones: Five kia-bam-qdwommy lumbar vertebral bodies are present. Interval mild L1 vertebral body heig ht loss, without evident step off or cortical break. Disks: Multilevel disk height loss and endplate degenerative change, mild at L1-L2, elty-yq-ggsilkho at L2-L3, and severe at L3-L4 through L5-S1, progressed at L4-L5 compared to 2005. Facets: Moderate facet arthropathy in the lower lumbar spine. Sacroiliac Joints: Unremarkable. Soft Tissues: Atherosclerotic calcifications within the aorta. The visualized bowel gas pattern is no rmal. IMPRESSION: 1. Age-indeterminate mild L1 vertebral body height loss since June 2017 CT. If this is a second focal tenderness, consider further evaluation with CT. 2. Multilevel degenerative disk disease, most pronounced and severe at L3-L4 through L5-S1, progressi ve L4-L5 compared to 2005. 3. Moderate facet arthropathy in the lower lumbar spine, as before. 4. Unchanged grade 1 retrolisthesis of L3 on L4. [facility] Referring Provider Line: [phone] SITE ID: [id number]
[2018-03-19] MEDS ORDERED: KETOROLAC 60 MG/2 ML VIAL IM STA (19:20)
== END 2018-03-19 20:19 | disposition home or self-care (01) ==
LOC: ED 16:42
DX: M54.5 Low back pain (principal); W18.39XA Other fall on same level, initial encounter; Y92.009 Unspecified place in unspecified non-institutional (private) residence as the place of occurrence of the external cause; I10 Essential (primary) hypertension; E11.9 Type 2 diabetes mellitus without complications; N40.0 Benign prostatic hyperplasia without lower urinary tract symptoms; M19.90 Unspecified osteoarthritis, unspecified site; Z86.73 Personal history of transient ischemic attack (TIA), and cerebral infarction without residual deficits; F17.200 Nicotine dependence, unspecified, uncomplicated
CPT/HCPCS: 72100; 96372; 99283; A9270

== ENCOUNTER 2018-04-27 08:41 | Outpatient (CLI) | payer MEDICARE, BC ==
[2018-04-27] MEDS ORDERED: IOPAMIDOL-300 100 ML VIAL ONE (09:03)
[2018-04-27] MEDS ORDERED: IOPAMIDOL-300 50 ML VIAL ONE (09:03)
[2018-04-27] MEDS ORDERED: IOPAMIDOL-300 50 ML VIAL PO ONE (09:55)
[2018-04-27] MEDS ORDERED: IOPAMIDOL-300 100 ML VIAL IVP ONE (09:55)
--- NOTE | 2018-04-27 10:44 | CT Report ---
Procedure Date: 04/27/2018 Accession Number: [id number] / [id number] Procedure: CT - Abdomen/Pelvis W/ CPT Code: FULL RESULT: EXAM: Abdomen/Pelvis W/ DATE: 04/27/2018 9:51 AM CLINICAL HISTORY: PROSTATE CANCER COMPARISON: 07/05/2017 TECHNIQUE: Routine helical CT imaging was performed through the abdomen and pelvis. IV contrast: 100 mL Isovue 300. Enteric contrast: Yes. Reconstructions: Coronal and sagittal. In accordance with CT protocol optimization, one or more of the following dose reduction techniques were utilized for this exam: automated exposure control, adjustment of mA and/or KV based on patient size, or use of iterative reconstructive technique. FINDINGS: Lung Bases: Patchy atelectasis. Liver: 5 mm hypodensity in the left lobe, stable, likely representing a small cyst. Gallbladder/Bile Ducts: Status post cholecystectomy. No biliary dilatation. Spleen: Normal. Pancreas: Normal. Adrenal Glands: Normal. Kidneys: Stable right nephrolithiasis. Resolution of left hydronephrosis. Peritoneal Cavity/Bowel: No bowel dilatation, free gas, or free fluid. Retroperitoneal adenopathy is decreasing, with the conglomerate left periaortic haylie mass now measuring 3.0 x 2.1 cm (previously 3.3 x 2.8 cm at a similar level). There is new thickening of the wall of the cecum and terminal ileum. This may relate to underdistention, but the possibility of a cecal mass cannot be excluded. Diverticulosis is present, without CT evidence of diverticulitis. Pelvic Organs: There has been interval decrease in iliac adenopathy, with the dominant left haylie mass now measuring 4.1 cm in length (previously 6.6 cm). There is a lobular protrusion into the bladder base from the prostate, new from previous. There is also likely involvement of the seminal vesicles by the prostate, new from previous. Vasculature: No aneurysms or other significant abnormality. Bones: No significant abnormality. Other: None. IMPRESSION: 1. Mixed response of prostate cancer, with decreasing adenopathy but new protrusion into the bladder base and likely new involvement of the seminal vesicles from previous CT. 2. New wall thickening in the cecum and terminal ileum, of uncertain etiology. Consider correlation with colonoscopy. [facility]
== END 2018-04-27 08:42 | disposition home or self-care (01) ==
LOC: DI 08:41
PROVIDERS: ATTEND Internal Medicine Hematology & Oncology
DX: C61 Malignant neoplasm of prostate (principal)
CPT/HCPCS: 74177

== ENCOUNTER 2018-05-08 08:52 | Outpatient (CLI) | payer MEDICARE, BC ==
--- NOTE | 2018-05-08 13:50 | Nuclear Medicine Report ---
Procedure Date: 05/08/2018 Accession Number: [id number] / [id number] Procedure: NM - Bone Whole Body CPT Code: FULL RESULT: EXAM: BONE SCAN EXAM DATE: 05/08/2018 11:47 AM. CLINICAL HISTORY: PROSTATE CANCER. COMPARISON: Bone scan 09/09/2017. CT abdomen/pelvis 04/27/2018 TECHNIQUE: Following the intravenous administration of 32 mCi of technetium 99m MDP and an appropriate delay, a whole-body scan was performed in anterior and posterior projections. Site-specific spot views of the region of interest were obtained in various projections. FINDINGS: Normal renal radiotracer uptake and bladder activity. Normal soft tissue activity. Overall normal osseous uptake. Decreased focal uptake at the left aspect of T7 corresponding to sclerotic lesion by CT. New focal uptake at L1 corresponding to moderate compression deformity. New focal uptake at the right anterior third through sixth ribs and left anterior fourth rib may be posttraumatic. Interval resolution of uptake at the right anterior seventh and eighth ribs may represent healed fractures There is probable urinary contamination at the right mid thigh. IMPRESSION: 1. 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 2. New focal uptake at the L1 vertebral level correspond to compression fracture. Underlying metastatic lesion is not excluded. 3. Focal uptake at multiple anterior ribs may be posttraumatic. 4. Other findings as noted above. [facility]
== END 2018-05-08 08:53 | disposition home or self-care (01) ==
LOC: DI 08:52
PROVIDERS: ATTEND Internal Medicine Hematology & Oncology
DX: C61 Malignant neoplasm of prostate (principal); M89.9 Disorder of bone, unspecified
CPT/HCPCS: 78306

== ENCOUNTER 2018-05-11 18:22 | Outpatient (CLI) | payer MEDICARE, BC | END 2018-05-11 18:23 | disposition critical access hospital (66) | LOC: EMS 18:22 | PROVIDERS: ATTEND Surgery | DX: R53.1 Weakness (principal); M54.9 Dorsalgia, unspecified | CPT/HCPCS: A0425; A0427 ==

== ENCOUNTER 2018-05-11 18:30 | Emergency (ER) | payer MEDICARE, BC ==
[2018-05-11] MEDS ORDERED: SODIUM CHLORIDE 0.9% 500 ML IV ONE (18:47)
--- NOTE | 2018-05-11 19:19 | ED Physician Documentation ---
History of Present Illness - Stated complaint Stated Complaint: WEAKNESS - Chief complaint Chief Complaint: General - History obtained from History obtained from: Patient, Family - Additonal information Additional information: 87-year-old male was brought to the emergency department for increasing general weakness over the past several days. Today, after using the bathroom the patient was too weak to get off the commode. The patient's was having difficulty helping the patient around their house. The patient denies any headache, neck pain, fever, chills, chest pain, cough, abdominal pain or focal motor weakness. Symptoms have progressively worsened. Symptoms are described as moderate. No other associated symptoms. No relieving factors. No triggering factors Review of Systems Constitutional: reports: Fatigue. denies: Fever, Chills Eyes: denies: Discharge Ears: denies: Ear pain Nose: denies: Congestion Throat: denies: Oral lesions / sores Cardiac: denies: Chest pain / pressure Respiratory: denies: Dyspnea GI: denies: Abdominal Pain : denies: Dysuria Skin: denies: Lesions Musculoskeletal: denies: Neck pain Neurologic: reports: Generalized weakness. denies: Numbness, Syncope Psychiatric: denies: Hallucinations PD PAST MEDICAL HISTORY - Past Medical History Cardiovascular: Hypertension Respiratory: None Neuro: CVA Endocrine/Autoimmune: Type 2 diabetes GI: None : Benign prostate hypertrophy HEENT: Chronic hearing loss Psych: None Musculoskeletal: Osteoarthritis, Fatigue Derm: None - Past Surgical History Past Surgical History: Yes General: Cholecystectomy, Colonoscopy, EGD, Other Ortho: Knee replacement - Present Medications Home Medications: Ambulatory Orders Medication Instructions Recorded Confirmed Atorvastatin [Lipitor] 20 mg PO DAILY 07/05/17 03/07/18 Clopidogrel [Plavix] 75 mg PO DAILY 07/05/17 03/07/18 Escitalopram [Lexapro] 20 mg PO DAILY 07/05/17 03/07/18 Latanoprost 0.005% Ophth Drops 1 drops EACHEYE DAILY 07/05/17 03/07/18 [Xalatan Ophth Drops] Allopurinol 150 mg PO DAILY 09/06/17 03/07/18 Cholecalciferol (Vitamin D3) 1,000 unit PO DAILY 09/06/17 03/07/18 [Vitamin D3] Loperamide HCl [Anti-Diarrheal] 2 mg PO DAILY PRN 09/06/17 03/07/18 Loratadine 10 mg PO DAILY 09/06/17 03/07/18 Multivitamin [Multivitamins] 1 tab PO DAILY 09/06/17 03/07/18 Tramadol HCl 50 mg PO Q6H PRN #15 tablet 03/06/18 03/07/18 Hydrocodone/Acetaminophen 1 - 2 each PO Q6H PRN #14 tablet 03/19/18 [Hydrocodon-Acetaminophen 5-325] - Allergies Allergies/Adverse Reactions: Allergies Allergy/AdvReac Type Severity Reaction Status Date / Time No Known Drug Allergies Allergy Verified 05/11/18 18:42 - Social History Does the pt smoke?: Yes Smoking Status: Current every day smoker Does the pt drink ETOH?: Yes Does the pt have substance abuse?: No - Immunizations Immunizations are current?: No Immunizations: TDAP >10years/unknown - POLST Patient has POLST: Yes PD ED PE NORMAL - General General: Alert and oriented X 3, No acute distress - HEENT HEENT: Atraumatic, PERRL, EOMI, Ears normal - Cardiac Cardiac: RRR, Strong equal pulses - Respiratory Respiratory: No respiratory distress, Clear bilaterally - Abdomen Abdomen: Normal bowel sounds, Non tender, Non distended - Derm Derm: Normal color - Extremities Extremities: No deformity, No edema - Neuro Neuro: Alert and oriented X 3, No motor deficit, Normal speech - Psych Psych: Normal mood Results - Vitals Vitals: Vital Signs - 24 hr 05/11/18 05/11/18 05/11/18 18:39 19:30 21:30 Temperature 36.3 C L Heart Rate 90 94 92 Respiratory 20 24 24 Rate Blood Pressure 113/73 115/73 110/72 O2 Saturation 95 97 95 05/11/18 22:05 Temperature Heart Rate 93 Respiratory 18 Rate Blood Pressure 141/77 H O2 Saturation 97 Oxygen O2 Source Room air - EKG (time done) 19: 03 Rate: Rate (enter#) Rhythm: NSR Intervals: Normal [place], QRS normal Ischemia: Non specific changes Other comments: Other comments (Normal sinus with nonspecific changes, no acute changes when compared to an old EKG) Compare to prior EKG: Unchanged from prior EKG - Labs Labs: Laboratory Tests 05/11/18 05/11/18 05/11/18 19:14 19:14 19:14 WBC 10.7 RBC 4.04 L Hgb 12.5 L Hct 35.7 L MCV 88.5 MCH 30.9 MCHC 35.0 RDW 14.4 Plt Count 222 MPV 7.1 L Neut # (Auto) 8.3 H Lymph # (Auto) 1.2 L [place] # (Auto) 1.1 H Eos # (Auto) 0.1 Baso # (Auto) 0.0 Absolute Nucleated RBC 0.00 Nucleated RBC % 0.0 Sodium 131 L Potassium 4.2 Chloride 98 L Carbon Dioxide 24 Anion Gap 9.0 BUN 21 H Creatinine 0.9 Estimated GFR (MDRD) 80 L Glucose 142 H Calcium 8.9 Magnesium 1.6 L Total Bilirubin 3.0 H AST 21 ALT 18 Alkaline Phosphatase 63 CK-MB (CK-2) 1.0 Troponin I < 0.04 Total Protein 7.8 Albumin 3.5 Globulin 4.3 H Albumin/Globulin Ratio 0.8 L Lipase 26 Urine Color Urine Clarity Urine pH Ur Specific [place] Urine Protein Urine Glucose (UA) Urine Ketones Urine Occult Blood Urine Nitrite Urine Bilirubin Urine Urobilinogen Ur Leukocyte Esterase Urine RBC Urine WBC Ur Squamous Epith Cells Urine Bacteria Urine Casts Ur Microscopic Review Urine Culture Comments Ethyl Alcohol < 5.0 05/11/18 21:00 WBC RBC Hgb Hct MCV MCH MCHC RDW Plt Count MPV Neut # (Auto) Lymph # (Auto) [place] # (Auto) Eos # (Auto) Baso # (Auto) Absolute Nucleated RBC Nucleated RBC % Sodium Potassium Chloride Carbon Dioxide Anion Gap BUN Creatinine Estimated GFR (MDRD) Glucose Calcium Magnesium Total Bilirubin AST ALT Alkaline Phosphatase CK-MB (CK-2) Troponin I Total Protein Albumin Globulin Albumin/Globulin Ratio Lipase Urine Color YELLOW Urine Clarity CLOUDY Urine pH 6.0 Ur Specific [place] 1.020 Urine Protein 30 H Urine Glucose (UA) NEGATIVE Urine Ketones NEGATIVE Urine Occult Blood LARGE H Urine Nitrite NEGATIVE Urine Bilirubin NEGATIVE Urine Urobilinogen 0.2 (NORMAL) Ur Leukocyte Esterase NEGATIVE Urine RBC TNTC H Urine WBC 0-3 Ur Squamous Epith Cells NONE SEEN Urine Bacteria None Seen Urine Casts 0-2 Hyaline Casts Ur Microscopic Review INDICATED Urine Culture Comments NOT INDICATED Ethyl Alcohol - Rads (name of study) Chest XRR Radiology: Final report received, See rad report (IMPRESSION: Low lung volumes, mild right hemidiaphragm elevation, and minimal wispy right basilar atelectasis , similar to before) PD MEDICAL DECISION MAKING - ED course ED course: Reevaluation the patient is resting comfortably and appears to be in no significant distress. The patient was able to ambulate on his own accord without any difficulty. The patient's workup does not reveal a clear etiology for the source of his symptoms. The patient has chronically elevated bilirubin and has chronically hematuria on urinalysis. Presently, there is no acute finding that would necessitate admission to the hospital. Since, the patient is ambulatory and has support at home he will be discharged for follow-up with primary care. The patient's family and patient are comfortable with this plan. I discussed warning signs and recommended returning to the emergency department immediately for worsening or any concerns - Sepsis Event Vital Signs: Vital Signs - 24 hr 05/11/18 05/11/18 05/11/18 18:39 19:30 21:30 Temperature 36.3 C L Heart Rate 90 94 92 Respiratory 20 24 24 Rate Blood Pressure 113/73 115/73 110/72 O2 Saturation 95 97 95 05/11/18 22:05 Temperature Heart Rate 93 Respiratory 18 Rate Blood Pressure 141/77 H O2 Saturation 97 Oxygen O2 Source Room air Departure - Departure Disposition: 01 Home, Self Care Clinical Impression: Weakness Condition: Good Instructions: ED Weakness [facility] Comments: Please follow-up with your primary care physician this coming week for recheck. Please return to the emergency department for worsening symptoms or any concerns
[2018-05-11 19:22] LABS: BASOPHILS % (AUTO) 0.4 %; EOSINOPHILS # (AUTO) 0.1 10^3/uL (0.0-0.7); EOSINOPHILS % (AUTO) 0.9 %; HGB - HEMOGLOBIN 12.5 g/dL (14.0-18.0); LYMPHOCYTES # (AUTO) 1.2 10^3/uL (1.5-3.5); LYMPHOCYTES % (AUTO) 11.1 %; MEAN CORPUSCULAR HEMOGLOBIN 30.9 pg (27.0-31.0); MEAN CORPUSCULAR VOLUME 88.5 fL (80.0-94.0); MEAN PLATELET VOLUME 7.1 fL (7.4-11.4); MONOCYTES # (AUTO) 1.1 10^3/uL (0.0-1.0); MONOCYTES % (AUTO) 10.4 %; NEUTROPHILS # (AUTO) 8.3 10^3/uL (1.5-6.6); NEUTROPHILS % (AUTO) 77.2 %; PLT - PLATELET COUNT 222 10^3/uL (130-450); RED BLOOD COUNT 4.04 10^6/uL (4.70-6.10); RED CELL DISTRIBUTION WIDTH 14.4 % (12.0-15.0); WHITE BLOOD COUNT 10.7 x10^3/uL (4.8-10.8)
[2018-05-11 19:38] LABS: ALBUMIN 3.5 g/dL (3.2-5.5); ALBUMIN/GLOBULIN RATIO 0.8 (1.0-2.2); ALKALINE PHOSPHATASE 63 IU/L (42-121); ALT ALANINE AMINOTRANSFERASE 18 IU/L (10-60); AST ASPARTATE AMINOTRANSFERASE 21 IU/L (10-42); BUN - BLOOD UREA NITROGEN 21 mg/dL (6-20); CALCIUM 8.9 mg/dL (8.5-10.3); CARBON DIOXIDE - CO2 24 mmol/L (21-32); CHLORIDE 98 mmol/L (101-111); CREATININE 0.9 mg/dL (0.6-1.2); GFR - MDRD 80 (>89); GLUCOSE 142 mg/dL (70-100); LIPASE 26 U/L (22-51); MAGNESIUM 1.6 mg/dL (1.7-2.8); SODIUM 131 mmol/L (135-145); TOTAL PROTEIN 7.8 g/dL (6.7-8.2)
[2018-05-11 19:42] LABS: TROPONIN I < 0.04 ng/mL (<0.49)
--- NOTE | 2018-05-11 19:54 | XRAY Report ---
Procedure Date: 05/11/2018 Accession Number: [id number] / [id number] Procedure: XR - Chest 2 View X-Ray CPT Code: 25420 FULL RESULT: EXAM: CHEST RADIOGRAPHY EXAM DATE: 05/11/2018 07:26 PM. CLINICAL HISTORY: CP. COMPARISON: CT 03/06/2018. TECHNIQUE: AP, lateral x2 views. FINDINGS: Lungs/Pleura: Mild right hemidiaphragm elevation, as before. Lung volumes are mildly low, as before. There is minimal wispy right basilar opacity suggesting atelectasis, as before. No new airspace opacities. No peribronchial cuffing or interstitial abnormality. No pneumothorax or pleural effusion. Mediastinum: Heart and mediastinal contours are unremarkable. Other: None. IMPRESSION: Low lung volumes, mild right hemidiaphragm elevation, and minimal wispy right basilar atelectasis, similar to before. [facility]
[2018-05-11 21:12] LABS: BILIRUBIN,URINE NEGATIVE (NEGATIVE); GLUCOSE, URINE (UA) NEGATIVE (NEGATIVE); KETONES,URINE (UA) NEGATIVE (NEGATIVE); LEUKOCYTE ESTERASE, URINE NEGATIVE (NEGATIVE); NITRITE,URINE NEGATIVE (NEGATIVE); OCCULT BLOOD,URINE LARGE (NEGATIVE); PROTEIN,URINE 30 mg/dL (NEGATIVE); UROBILINOGEN,URINE 0.2 (NORMAL) E.U./dL (NORMAL)
[2018-05-11 21:18] LABS: CLARITY,URINE CLOUDY (CLEAR)
[2018-05-11 21:28] LABS: BACTERIA,URINE None Seen /HPF (None Seen); CASTS, URINE 0-2 Hyaline Casts /LPF; RBC,URINE TNTC /HPF (0-5); SQUAMOUS EPITHELIAL CELL,UR NONE SEEN (<= Few)
[2018-05-11 22:06] VITALS: BP 141/77
== END 2018-05-11 22:26 | disposition home or self-care (01) ==
LOC: EDUNIT# → ED 18:30
DX: R53.1 Weakness (principal); R00.0 Tachycardia, unspecified; I10 Essential (primary) hypertension; Z86.73 Personal history of transient ischemic attack (TIA), and cerebral infarction without residual deficits; E11.9 Type 2 diabetes mellitus without complications; Z96.659 Presence of unspecified artificial knee joint; Z79.01 Long term (current) use of anticoagulants; F17.200 Nicotine dependence, unspecified, uncomplicated
CPT/HCPCS: 36415; 71046; 80053; 81001; 82553; 83690; 83735; 84484; 85025; 93005; 99283; G0480; 80320; 81003; 87086

== ENCOUNTER 2018-05-21 13:33 | Outpatient (CLI) | payer MEDICARE, BC | END 2018-05-21 13:34 | disposition critical access hospital (66) | LOC: EMS 13:33 | PROVIDERS: ATTEND Surgery | DX: M25.551 Pain in right hip (principal); W18.39XA Other fall on same level, initial encounter; W22.8XXA Striking against or struck by other objects, initial encounter; Y92.009 Unspecified place in unspecified non-institutional (private) residence as the place of occurrence of the external cause | CPT/HCPCS: A0425; A0429 ==

== ENCOUNTER 2018-05-21 13:46 | Inpatient (IN) | payer MEDICARE, BC ==
[2018-05-21] MEDS ORDERED: MORPHINE 2 MG/ML SYRINGE IVP STA (14:04)
--- NOTE | 2018-05-21 14:10 | ED Physician Documentation ---
PD HPI LOWER EXT INJURY - Stated complaint Stated Complaint: HIP PAIN - Chief complaint Chief Complaint: Ext Problem - History obtained from History obtained from: Patient - History of Present Illness PD HPI LOW EXT INJURY LOCATION: Right, Hip Type of injury: Fall (He was bending over and taking off his sock and fell Backwards and hit his head on the door frame. He did not lose consciousness and was not dizzy. He scraped his right elbow but mainly hurt his right hip. He is not tried to walk since the accident. He is on Plavix. He did not feel dizzy or woozy, the paramedics did note a single blood pressure of 88 systolic but multiple readings after that have been normal.) Review of Systems Ten Systems: 10 systems reviewed and negative Constitutional: denies: Fever, Chills Nose: reports: Reviewed and negative Throat: reports: Reviewed and negative Cardiac: reports: Reviewed and negative Respiratory: reports: Reviewed and negative PD PAST MEDICAL HISTORY - Past Medical History Cardiovascular: Hypertension Respiratory: None Neuro: CVA Endocrine/Autoimmune: Type 2 diabetes GI: None : Benign prostate hypertrophy HEENT: Chronic hearing loss Psych: None Musculoskeletal: Osteoarthritis, Fatigue Derm: None - Past Surgical History Past Surgical History: Yes General: Cholecystectomy, Colonoscopy, EGD, Other Ortho: Knee replacement - Present Medications Home Medications: Ambulatory Orders Medication Instructions Recorded Confirmed Atorvastatin [Lipitor] 20 mg PO DAILY 07/05/17 05/21/18 Clopidogrel [Plavix] 75 mg PO DAILY 07/05/17 05/21/18 Escitalopram [Lexapro] 20 mg PO DAILY 07/05/17 05/21/18 Latanoprost 0.005% Ophth Drops 1 drops EACHEYE DAILY 07/05/17 05/21/18 [Xalatan Ophth Drops] Allopurinol 150 mg PO DAILY 09/06/17 05/16/18 Cholecalciferol (Vitamin D3) 1,000 unit PO DAILY 09/06/17 05/21/18 [Vitamin D3] Loperamide HCl [Anti-Diarrheal] 2 mg PO DAILY PRN 09/06/17 05/16/18 Loratadine 10 mg PO DAILY 09/06/17 05/16/18 Multivitamin [Multivitamins] 1 tab PO DAILY 09/06/17 05/21/18 - Allergies Allergies/Adverse Reactions: Allergies Allergy/AdvReac Type Severity Reaction Status Date / Time No Known Drug Allergies Allergy Verified 05/11/18 18:42 - Living Situation Living Situation: reports: With family - Social History Does the pt smoke?: Yes Smoking Status: Current every day smoker Does the pt drink ETOH?: Yes Does the pt have substance abuse?: No - Immunizations Immunizations are current?: No Immunizations: TDAP >10years/unknown - POLST Patient has POLST: Yes PD ED PE NORMAL - Vitals Vital signs reviewed: Yes - General General: Alert and oriented X 3, No acute distress - HEENT HEENT: PERRL, EOMI, Ears normal, Moist mucous membranes, Pharynx benign - Neck Neck: Supple, no meningeal sign, No bony TTP - Cardiac Cardiac: RRR, No murmur - Respiratory Respiratory: No respiratory distress, Clear bilaterally - Abdomen Abdomen: Normal bowel sounds, Soft, Non tender - Back Back: No CVA TTP, No spinal TTP - Derm Derm: Normal color, Warm and dry - Extremities Extremities: Other (He is shallow skin tears kind of a staccato pattern over the right elbow which were irrigated and Steri-Stripped during exam. He has severe tenderness of the right hip and profound pain with internal or external rotation, the remainder of his extremities are nontender.) - Neuro Neuro: Alert and oriented X 3, Normal speech - Psych Psych: Normal mood, Normal affect Results - Vitals Vitals: Vital Signs - 24 hr 05/21/18 13:53 Temperature 36.5 C Heart Rate 87 Respiratory 18 Rate Blood Pressure 125/77 O2 Saturation 95 Oxygen O2 Source Room air - EKG (time done) 1450 Rate: Rate (enter#) Rhythm: NSR [place]: Normal Intervals: LBBB (incomplete) Ischemia: Q waves (anterior) Computer interpretation: Agree with computer - Labs Labs: Laboratory Tests 05/21/18 05/21/18 05/21/18 14:57 14:57 14:57 WBC 9.7 RBC 3.80 L Hgb 11.6 L Hct 34.3 L MCV 90.2 MCH 30.5 MCHC 33.9 RDW 14.8 Plt Count 260 MPV 6.8 L Neut # (Auto) 7.6 H Lymph # (Auto) 1.3 L Marion # (Auto) 0.6 Eos # (Auto) 0.1 Baso # (Auto) 0.0 Absolute Nucleated RBC 0.00 Nucleated RBC % 0.0 PT 12.9 H INR 1.1 Sodium 134 L Potassium 4.0 Chloride 100 L Carbon Dioxide 26 Anion Gap 8.0 BUN 20 Creatinine 0.8 Estimated GFR (MDRD) 92 Glucose 174 H Calcium 8.7 Total Bilirubin 1.4 H AST 26 ALT 23 Alkaline Phosphatase 59 Total Protein 7.1 Albumin 3.1 L Globulin 4.0 Albumin/Globulin Ratio 0.8 L Lipase 32 Blood Type Antibody Screen 05/21/18 14:57 WBC RBC Hgb Hct MCV MCH MCHC RDW Plt Count MPV Neut # (Auto) Lymph # (Auto) Marion # (Auto) Eos # (Auto) Baso # (Auto) Absolute Nucleated RBC Nucleated RBC % PT INR Sodium Potassium Chloride Carbon Dioxide Anion Gap BUN Creatinine Estimated GFR (MDRD) Glucose Calcium Total Bilirubin AST ALT Alkaline Phosphatase Total Protein Albumin Globulin Albumin/Globulin Ratio Lipase Blood Type B NEGATIVE Antibody Screen NEGATIVE - Rads (name of study) R hip Radiology: EMP read contemporaneously (intertrochanteric hip frx) Head/Cspine CT Radiology: EMP read contemporaneously (NAD) 1v chest Radiology: EMP read contemporaneously (Elevated right hemidiaphragm, otherwise clear) PD MEDICAL DECISION MAKING - ED course ED course: 87-year-old gentleman with what sounds like a mechanical ground-level fall, he did have a single hypotensive episode for the paramedics but that has not been corroborated since. He is on Plavix. Head and neck CTs are negative, he does have an intertrochanteric hip fracture on the right. I spoke with Dr. Link for admission at [address] Painting the orthopedic surgical product sales consultant at 3:10 PM. - Sepsis Event Vital Signs: Vital Signs - 24 hr 05/21/18 13:53 Temperature 36.5 C Heart Rate 87 Respiratory 18 Rate Blood Pressure 125/77 O2 Saturation 95 Oxygen O2 Source Room air Departure - Departure Disposition: 66 [facility] DC/Xfer Clinical Impression: Fall from ground level Intertrochanteric fracture of right hip Qualifiers: Encounter type: initial encounter Fracture type: closed Fracture alignment: displaced Qualified Code(s): S72.141A - Displaced intertrochanteric fracture of right femur, initial encounter for closed fracture Head injury Qualifiers: Encounter type: initial encounter Qualified Code(s): S09.90XA - Unspecified injury of head, initial encounter Condition: Stable Discharge Date/Time: 05/21/18 16:20
[2018-05-21] MEDS ORDERED: MORPHINE 10 MG/ML VIAL IVP STA (14:32)
--- NOTE | 2018-05-21 15:00 | CT Report ---
Procedure Date: 05/21/2018 Accession Number: [id number] / [id number] Procedure: CT - Head W/O CPT Code: FULL RESULT: EXAM: CT HEAD EXAM DATE: 05/21/2018 02:27 PM. CLINICAL HISTORY: Head inj. COMPARISON: 03/06/2018. TECHNIQUE: Multiaxial CT images were obtained from the foramen magnum to the vertex. Reformats: Sagittal and coronal. IV contrast: None. In accordance with CT protocol optimization, one or more of the following dose reduction techniques were utilized for this exam: automated exposure control, adjustment of mA and/or KV based on patient size, or use of iterative reconstructive technique. FINDINGS: Parenchyma: No intraparenchymal hemorrhage. No evidence of mass, midline shift, or CT findings of infarction. 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 White matter disease is unchanged. Mercado-white differentiation is distinct. Extraaxial Spaces: Normal for age. No subdural or epidural collections identified. Ventricles: Normal in size and position. Sinuses and Orbits: Imaged paranasal sinuses, orbits, and mastoids show no significant abnormality. Bones: No evidence of fracture or calvarial defect. Other: None. IMPRESSION: No acute intracranial abnormality or significant change. RADIA
--- NOTE | 2018-05-21 15:05 | CT Report ---
Procedure Date: 05/21/2018 Accession Number: [id number] / [id number] Procedure: CT - Cervical Spine W/O CPT Code: FULL RESULT: EXAM: CT CERVICAL SPINE WITHOUT CONTRAST DATE: 05/21/2018 02:27 PM. HISTORY: Head inj. COMPARISONS: None. TECHNIQUE: Thin-section axial images were acquired of the cervical spine without contrast. Post-processing: Coronal and sagittal reformats. Other: None. In accordance with CT protocol optimization, one or more of the following dose reduction techniques were utilized for this exam: automated exposure control, adjustment of mA and/or KV based on patient size, or use of iterative reconstructive technique. FINDINGS: Alignment: No scoliosis or spondylolisthesis. Bones: No acute fracture. Interspace Levels/Facets: Multilevel moderate disk degeneration and mild to moderate facet arthrosis. No significant spinal canal stenosis. Musculature: Fatty atrophy. Other: Surgical material in the right neck. The lung apices are clear. IMPRESSION: No acute fracture. RADIA
[2018-05-21 15:06] LABS: BASOPHILS % (AUTO) 0.4 %; EOSINOPHILS # (AUTO) 0.1 10^3/uL (0.0-0.7); EOSINOPHILS % (AUTO) 1.3 %; HGB - HEMOGLOBIN 11.6 g/dL (14.0-18.0); LYMPHOCYTES # (AUTO) 1.3 10^3/uL (1.5-3.5); LYMPHOCYTES % (AUTO) 13.7 %; MEAN CORPUSCULAR HEMOGLOBIN 30.5 pg (27.0-31.0); MEAN CORPUSCULAR HGB CONC 33.9 g/dL (32.0-36.0); MEAN CORPUSCULAR VOLUME 90.2 fL (80.0-94.0); MEAN PLATELET VOLUME 6.8 fL (7.4-11.4); MONOCYTES # (AUTO) 0.6 10^3/uL (0.0-1.0); MONOCYTES % (AUTO) 5.8 %; NEUTROPHILS # (AUTO) 7.6 10^3/uL (1.5-6.6); NEUTROPHILS % (AUTO) 78.8 %; PLT - PLATELET COUNT 260 10^3/uL (130-450); RED CELL DISTRIBUTION WIDTH 14.8 % (12.0-15.0); WHITE BLOOD COUNT 9.7 x10^3/uL (4.8-10.8)
[2018-05-21] MEDS ORDERED: HYDROmorphone 2 MG/ML VIAL IVP STA (15:06)
[2018-05-21 15:19] LABS: ALBUMIN 3.1 g/dL (3.2-5.5); ALBUMIN/GLOBULIN RATIO 0.8 (1.0-2.2); BILIRUBIN,TOTAL 1.4 mg/dL (0.2-1.0); CALCIUM 8.7 mg/dL (8.5-10.3); CREATININE 0.8 mg/dL (0.6-1.2); TOTAL PROTEIN 7.1 g/dL (6.7-8.2)
--- NOTE | 2018-05-21 15:20 | XRAY Report ---
Procedure Date: 05/21/2018 Accession Number: [id number] / [id number] Procedure: XR - Chest 1 View X-Ray CPT Code: 75132 FULL RESULT: EXAM: CHEST RADIOGRAPHY EXAM DATE: 05/21/2018 02:44 PM. CLINICAL HISTORY: Acute pain due to trauma. COMPARISON: 05/11/2018. 03/06/18. TECHNIQUE: 1 view. FINDINGS: Lungs/Pleura: No focal opacities evident. No pleural effusion. No pneumothorax. Elevated right hemidiaphragm is again seen similar to prior CT. Mediastinum: Within exam limitations, the cardiomediastinal contour is normal. Other: None. IMPRESSION: No acute cardiopulmonary abnormality demonstrated. Elevated right hemidiaphragm is again seen. RADIA
[2018-05-21 15:22] LABS: INR 1.1 (0.8-1.2); PT - PROTHROMBIN TIME 12.9 secs (9.9-12.6)
[2018-05-21] MEDS ORDERED: LOPERAMIDE 2 MG CAPSULE PO PRN (15:29)
--- NOTE | 2018-05-21 15:34 | XRAY Report ---
Procedure Date: 05/21/2018 Accession Number: [id number] / [id number] Procedure: XR - Hip w/Pelvis 2-3V RT CPT Code: FULL RESULT: EXAM: RIGHT HIP AND PELVIS RADIOGRAPHY EXAM DATE: 05/21/2018 02:44 PM. HISTORY: Right hip pain. COMPARISONS: None. TECHNIQUE: 1 view of the pelvis and 1 view of the hip. FINDINGS: Bones: Mildly angulated and displaced right intertrochanteric fracture is seen. The remainder osseous structures are intact. Bones are slightly osteopenic. Joints: There is mild degenerative changes seen in the hip joints, right side greater than left side. Additional degenerative changes are seen in the lower spine. Soft Tissues: Normal. No soft tissue swelling. IMPRESSION: Mildly displaced and angulated right intertrochanteric fracture. RADIA
[2018-05-21] MEDS: SODIUM CHLORIDE 0.9% 1,000 ML IV SCH ×2 (16:48→21:17)
[2018-05-21] MEDS: MORPHINE 2 MG/ML SYRINGE IVP PRN ×2 (16:48→20:29)
[2018-05-21] MEDS: SODIUM CHLORIDE FLUSH 0.9% 10 ML SYRINGE IVP SCH ×2 (16:48→20:29)
[2018-05-21] MEDS: traMADol 50 MG TABLET PO PRN ×2 (16:51→23:36)
--- NOTE | 2018-05-21 17:30 | CONSULTATION NOTE ---
Referring Provider Name of Referring Provider:: Joyce Consult Date: 05/21/18 Chief Complaint - Chief Complaint Chief Complaint: Right intertrochanteric hip fracture History of Present Illness - Admitted From Admitted From:: patient - History of Present Illness HPI Comment/Other: Patient is an 87 year old male who fell and sustained a right intertrochanteric hip fracture. He presented to the ER. He has a history of a CVA and is taking plavix for this. Orthopedics was consulted for fixation of the fracture. History - Past Medical History Cardiovascular: reports: Hypertension Respiratory: reports: None Neuro: reports: CVA Endocrine/Autoimmune: reports: Type 2 diabetes GI: reports: None : reports: Benign prostate hypertrophy HEENT: reports: Chronic hearing loss Psych: reports: None Musculoskeletal: reports: Osteoarthritis, Fatigue Derm: reports: None MRSA Hx?: No - Past Surgical History General: reports: Cholecystectomy, Colonoscopy, EGD, Other Ortho: reports: Knee replacement Cardiovascular: reports: Other - Family & Social History Living Situation: With family - POLST Patient has POLST: Yes Meds/Allgy - Home Medications Home Medications: Ambulatory Orders Medication Instructions Recorded Confirmed Atorvastatin [Lipitor] 20 mg PO DAILY 07/05/17 05/21/18 Clopidogrel [Plavix] 75 mg PO DAILY 07/05/17 05/21/18 Escitalopram [Lexapro] 20 mg PO DAILY 07/05/17 05/21/18 Latanoprost 0.005% Ophth Drops 1 drops EACHEYE DAILY 07/05/17 05/21/18 [Xalatan Ophth Drops] Allopurinol 150 mg PO DAILY 09/06/17 05/16/18 Cholecalciferol (Vitamin D3) 1,000 unit PO DAILY 09/06/17 05/21/18 [Vitamin D3] Loperamide HCl [Anti-Diarrheal] 2 mg PO DAILY PRN 09/06/17 05/16/18 Loratadine 10 mg PO DAILY 09/06/17 05/16/18 Multivitamin [Multivitamins] 1 tab PO DAILY 09/06/17 05/21/18 - Allergies Allergies/Adverse Reactions: Allergies Allergy/AdvReac Type Severity Reaction Status Date / Time No Known Drug Allergies Allergy Verified 05/11/18 18:42 Exam - Vital Signs Vital Signs: Vital Signs x48h Temp Pulse Pulse Resp BP BP Pulse Ox 05/21/18 16:00 36.5 C 103 H 18 129/74 93 05/21/18 15:59 88 18 152/73 H 94 - Physical Exam General Appearance: positive: No acute distress Eyes Bilateral: positive: PERRL ENT: positive: No signs of dehydration Peripheral Pulses: positive: 1+ Skin: positive: Other (Areas of petichiae on arms) Extremities: positive: Other (Shortening of right leg with some external rotation. Toes up and down. Sensory exam normal.) Conclusion/Plan - Diagnosis Diagnosis: Right intertrochanteric hip fracture - displaced - closed - plan to insert an IM nail on Tuesday. Since he is on Plavix, we have to wait for about 3-5 days for it to reverse. Have explained why we have to delay. Check on him again in the am. - Lab Results Fish Bones: 05/21/18 14:57 05/21/18 14:57
--- NOTE | 2018-05-21 17:44 | ADVANCE CARE PLANNING NOTE ---
Advance Care Planning - Date/Time Date: 05/21/18 Time: 17:39 - Purpose of encounter Text: In view of patient's failing performance scores and failure to thrive what is the family expectation for this patient - Parties in attendance Parties in attendance: 2 daughters and his , and hospitalist Dr. Link - Decisional capacity Decisional capacity of: Patient impaired after doses of morphine and Dilaudid. His and daughters speak for him - Subjective/Patient's story Subjective/Patient's story: He was born and raised here on the [place] and spent all his life here. He was a very vigorous gentleman. The life of the republican, and always a jokester. He is well known to the [facility] and is 5th generation [place] son. He went to [employer] and his high school [employer]. They have been close to 66 years. She says that he was a very active gentleman. He was a hard worker, loved to golf, fish. All of that changed April 2016 when he had a stroke. He had a dense facial droop, aphasia, dysphagia, blurred vision. But she was pleased to report that he responded nicely to the alteplase and he was airlifted to [facility]. However, he has never been the same since. He was not able to drive, she took over paying the bills, but he was still active enough that he could feed himself, dress himself, but was noticeably changed. Depression was a problem where it never been before. He felt useless, and stated "I'm not any use to you" referring to his kids and . He was easily tearful. He was placed on citalopram about a year ago. It worked in that it reduced the amount of tearful outbursts, but became more of a "ghost". Numb. You could talk to him but he would just stare vacantly at you and not respond for quite some time. They noticed that he does that more with family. When he is with strangers, he will rally his personality and his strength to be more "on". He will smile, joke, and interact more with strangers that he does with the family. Last fall he had a kidney stone. He was brought to the emergency room and was identified as having prostate cancer in addition to the kidney stone. There was a large prostate with extensive pelvic adenopathy. He was started on injections , lupron. While they had hoped that some of these injections would have helped him live longer, and control the tumor growth (in their opinion ) it has not worked. He has been getting weaker and weaker to the point that he now sleeps in a lift chair in the living room. His says it's easier for him to get in and out of a chair than it is to try and go to bed and struggle to get up. They even have an adjustable bed that would help lift him up and transition him but he is too weak. He has been starting to wobble a lot more. He came to the emergency room because of the severe weakness almost resulting in a fall on May 11. They saw Dr. Bryan, [facility], on May 16 and she is adding Zytiga to his Lupron injections. The and daughters are doubting that this is going to make a difference. They feel that he has failed to progress on current treatment and wonder what the point is of adding this injection. They were going to be speaking to Dr. Kelly, his primary care provider, in the next week about it. They asked me specific questions such as "will this really buy him more time?", "will it give him more energy and make it worth his while to be on this even if he does not have time?". They also asked if it is time to start paring down his medication list. They frankly feel that he is failing and do not anticipate him to be here by [place] time. They wonder what is the point about cholesterol drugs, vitamins, Plavix, etc. on his medication list. Today he was putting on socks, and in putting on the sock lost his balance and fell. He hit his head on the door jam and the CAT scan does not show any brain damage. He has a right intertrochanteric hip fracture and is planning to go to the operating room in the next 1-2 days. They also ask if surgery is worth it in view of his failing status. His states that she has tried to ask him questions about what he wants. For instance does not really want to go on Zytiga. But he is just is not there. She cannot tell of this the effects of the citalopram or just failing. She also reluctantly admits that she has been reluctant to press him on this issue because it is a hard topic to talk about. While she and the family recognize that he is failing and really do not expect him to live much longer, she does not know if he knows that. She was hoping that we could bring it up with him. - Objective/Medical story Objective/Medical Story: Mr. Murray is an 87-year-old white male who is lived on [facility] his entire life. His medical history is that of peptic ulcer disease, nephrolithiasis, type 2 diabetes mellitus that is diet-controlled, hypertension , gout, hyperlipidemia, and a stroke in 2016 living him with residual cognitive deficits, residual dysphasia, and occasional a fascia. 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 He has been more tearful, feeling more useless. In the last 6 months he has failed even more in view of cancer diagnosis of prostate cancer in June 2017. He presented to the emergency room in June 2017 with a left kidney stone. The CAT scan revealed him to have extensive pelvic adenopathy and a large prostate. He has been treated with Lupron initially. He has had progression of his disease with more adenopathy, more tumor growth pressing on his bladder, and now bony metastatic disease with the most recent CAT scan done this last month. Zytiga is to be added to the Lupron but had not been started. Today, he fell and broke his hip. It was a mechanical fall as he tried to put on a sock. He is on Plavix because of his stroke. Surgery will be delayed 24-48 hours for the Plavix to wear off and then safely go to surgery. - Goals of Care Goals of care determinations: His daughter and his 's concerns relate mainly to comfort. They recognize that he is failing. They want to make sure there making the right decisions with regards to minimizing medications, minimizing his pain, improving his nutrition, and giving him comfort with regards to his depression and feeling useless.There is no timeline with regards to how long they want him to live. They say that they would like him to live as long as possible but recognize that he may not be here by [place]. - Plan Plan: 1. Patient has a POLST form and an Advanced Directive in his chart summary. He is DO NOT RESUSCITATE with limited interventions. If has a terminal illness or goes into a coma and is unresponse, let him go. 2. After surgery, they are interested in changing the POLST form to comfort measures only 3. They would like to have him assessed for physical therapy needs after his surgery. Postoperative day #3 will be ~May 3. At that time, the the help of a PT evaluation, they will decide if he goes home, or can he go to [facility] for rehab. If he cannot go to [facility] for rehab, they are not interested in group home placement. 4. If he is not to go to group home, they are interested in hospice care and taking him home. 5. Initially they feel they can take care of them on their own. They would like to have private hired for bathing. They would like to be taught how to roll him in bed. They would like to be taught how to bathe him and change him if he is incontinent. They will be speaking to family members about who can help take care of him. 6. As his care needs increased, they hope that hospice will be able to give them a list of care providers to help him physically. 7. After discussing how severe his current pain is, they do wish for surgical repair of his femur fracture. 8. They would like to stop unnecessary medication and, after reviewing the list , will stop plavix, ASA, statin, Vitamin D, loratadine. 9. Once his pain is under control and he is more coherent, they would like me to discuss all of this with him to see what he's thinking. 10. No further Zytiga or Lupron - Code Status Code Status: Do Not Attempt Resuscitation - Time Spent on Advance Care Planning Time spent on advance care plannin minutes.
[2018-05-21] MEDS: LATANOPROST 0.005% OPHTH DROPS EACHEYE SCH (20:29)
[2018-05-21] MEDS: ATORVASTATIN 10 MG TABLET PO SCH (20:29)
--- NOTE | 2018-05-21 22:12 | HISTORY & PHYSICAL EXAMINATION ---
DATE OF SERVICE: 05/21/2018 Physician: Rosa Link MD ATTENDING PROVIDER: Dr. Charles Kelly ADMITTING PROVIDER: Dr. Rosa Link CHIEF COMPLAINT: Fall with hip pain. HISTORY OF PRESENT ILLNESS: The patient is an 87-year-old white male who unfortunately has been failing in the last few months in relation to a diagnosis of metastatic prostate cancer. He had a kidney stone in June 2017. He was seen in the emergency room for that and, in the process of evaluating the CT of the abdomen for that, was seen to have extensive pelvic adenopathy and a large prostate. He has been treated with bicalutamide and Lupron initially by Dr. Minna Javier and was transitioned to only Lupron injections by August 2017 when he changed his care to Dr. Gretta Bryan, Oncology. He has been on Lupron injections. In spite of that, he has been losing weight, getting weaker, and feels that mentally he is just fading more and more. He was seen for a fall that happened on May 11. He was seen by an emergency room physician and evaluated and sent home when his fall was felt to be more from weakness from failure to thrive than an acute medical problem. Dr. Bryan saw him May 16 and noted the frail appearance, the failure to thrive, and the unfortunate disease progression with more adenopathy, and metastatic disease. A bone scan on 05/08/2018 compared to the August 2017 scan shows a lesion at T7, L1, and compression fractures, and rib fractures. Tumor is also causing lobular protrusion into the bladder base from the prostate that was not present on his previous CT. PSA has been rising, and Dr. Bryan feels that she was going to be adding Zytiga to his Lupron. Today, while standing in his room, he attempted to pull on some socks, fell, and hit his head against a door jamb. Did not lose consciousness but could no longer ambulate because of hip pain. He was brought to the emergency room, where he was evaluated by Dr. Saeid Cook. He has a mildly displaced and angulated right intertrochanteric hip fracture. Head CT has no acute intracranial abnormalities or significant change from previous CT. He is mildly hyponatremic with a sodium of 134. Random glucose is 174. Troponin is negative. Hemoglobin and hematocrit show a chronic anemia since September of last year. INR is 1.1. The patient is on Plavix for a stroke that occurred 05/19/2016. He received alteplase in the emergency room and was airlifted to [facility]. He presented with a partial gaze palsy, partial hemianopia, facial paralysis, no aphasia but severe dysarthria. After receiving rehabilitation at [facility], the family felt that he did recover somewhat. He has no history of valvular heart disease, atrial fibrillation, nor has he had a recent NV. His creatinine is 0.8. He is not felt to have any chronic lung disease in spite of his long smoking history. Overall, his endurance has sharply deteriorated in the last 6 months. It had already been changed after his stroke in 2016. Although he recovered substantially, he was no longer able to drive back then, and he could no longer golf, but he was still able to dress himself, feed himself, and walk with his . In the last few months, he has lost his appetite, eating less, and has become weaker and weaker. It was for that weakness that he was seen in the emergency room on May 11, and then the fall today. He has lost quite a bit of weight according to the and is getting more and more depressed, more tearful. He feels like he is of no use to anyone. PAST MEDICAL HISTORY 1. Hypertension. 2. Hyperlipidemia. 3. Type 2 diabetes mellitus, with A1c being 5.4% 10/18/2017. He is diet controlled. 4. History of gout, for which he takes allopurinol. 5. Osteoarthritis, with bilateral total knee replacements in the past. 6. Cataract surgery, with right and left cataracts removed in 2013 and lens implants placed. 7. Chronic deafness. 8. Depression. 9. Nephrolithiasis in 2011 and in June 2017. It was the kidney stone CT scan that resulted in his diagnosis of prostate cancer. 10. Acute cholecystitis with laparoscopic cholecystectomy in 2009 and an incidental umbilical hernia repair done at that time. 11. History of colonoscope in 2002 and 2007. 12. Peptic ulcer disease with EGDs in 2007 and 2009. 13. Prostate cancer as above. ALLERGIES: NO KNOWN DRUG ALLERGIES. MEDICATION LIST 1. Allopurinol 150 mg a day. 2. Lipitor 20 mg a day. 3. Vitamin D 1000 mg a day. 4. Plavix 75 mg a day. 5. Lexapro 20 mg a day. 6. Latanoprost ophthalmic solution 1 drop each eye daily. 7. Loperamide 2 mg daily p.r.n. 8. Loratadine 10 mg daily 9. Multivitamin 1 tablet daily. SOCIAL HISTORY: He was born and raised in [place]. 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 Spent all of his life on the [place]. 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 They have known each other for probably 67 years and have been close to 66 years. He drinks about 3 drinks 3 times a week, but that has slowly gone by the [place] as he has gotten sicker. He has smoked continuously, probably since the age of 16 or so. First it was cigarettes for 40 years, then it went to a pipe, then cigars, and then most recently has been chewing tobacco. He has no history of recreational substance abuse. He lives with his in their own home. He has been getting frailer. CODE STATUS: DO NOT RESUSCITATE, WITH LIMITED INTERVENTION. FAMILY HISTORY: Dad at age 64 of cancer. Mom at age 70 of probable hematologic malignancy. He had 7 siblings. All of them are . They in their 80s and 90s of natural causes. A few of complications of alcoholic liver disease. He has 5 daughters and 3 sons. One daughter has thyroid disease and breast cancer. As far as they know, all of their other children are completely healthy without a history of thyroid, diabetes, cancer, heart attack, or stroke. REVIEW OF SYSTEMS GENERAL: Obtained by his and his daughters. The patient is in significant pain and has been sedated heavily with morphine and Dilaudid. CONSTITUTIONAL: He has definitely had failure to thrive with weight loss, anorexia, increasing weakness. He spends most of his time now in a chair lift. He no longer sleeps in bed because he is too weak to get out of bed, but once he uses the chair lift and that chair is able to stand him up, he is able to walk to do things like go to the bathroom, get his food, etc. ENT: Deaf. Has problems with swallowing, and he chokes easily ever since he has had a stroke. PULMONARY: Denies coughing, wheezing, chest congestion. No history of bronchitis or emphysema according to the . CARDIAC: Denies orthopnea, palpitations, chest pain, pedal edema. He does not really have dyspnea on exertion. He just has exhaustion. They feel that he is just gradually losing ground, not from his heart but just from energy and his cancer. ABDOMEN: Chronic diarrhea. states [place], and if they cannot find a bathroom, they know every single roadside ditch or field that he can go to. His diarrhea has been lifelong, and he uses loperamide almost on a daily basis. That is unchanged. No blood in the stool. GENITOURINARY: Urgency, incontinence, dribbling, retention. All are positive. He constantly has hematuria. He has not had any flank pain since his kidney stone last fall. JOINTS: He has always had back pain. That has recently worsened. He is very stiff from his back. His bilateral knee replacements were successful, and his knees do not bother him. SKIN: Easy bruising but no new rashes or lesions. ENDOCRINE: No polyuria, no polydipsia, no polyphagia. PSYCHIATRIC: Tearfulness. It all started with a stroke. He wonders why he survived. He feels like he is no use to the family. In the last 6 months, that has worsened. He was started on citalopram, but they feel that just "turned him off." He is anhedonic , vacant at times. Stares off. While the tearfulness has improved, some of the depression may have not been. He has never been suicidal. INK MAKER: Positive as above. No hemiplegia but cognitive deficit, sometimes blurred vision. No headache. Dysphagia and dysarthria still mildly evident, but he recovered substantially after the alteplase. PHYSICAL EXAMINATION VITAL SIGNS: Temperature is 36.5, pulse is 103, blood pressure 129/74, respirations 18, 93% on room air. GENERAL: He has been brought over to his room from the emergency room. He is sedated after narcotics but still grimaces with pain will anybody attempts to roll him over and cries out. Elderly, cachectic male, dull affect, looks stated age. HEAD AND NECK: Remarkable for dry mouth. His lips are sticking to his teeth. Pupils reactive but sluggish. Speech is slightly garbled. No facial asymmetry. Overall, slack facies bilaterally but not asymmetrical. Neck is supple with shotty adenopathy. LUNGS: Clear with slow, shallow, unlabored respirations. No crackles, rhonchi or wheezing. HEART: PMI is normally placed, with a regular rate and rhythm and a soft systolic ejection murmur at the left lower sternal border that is nonradiating. ABDOMEN: Soft, nontender, hypoactive bowel sounds. No masses palpable. EXTREMITIES: Show knobby deformities of the fingers and toes from osteoarthritis. The right leg is externally rotated. Both feet have good pulses. Babinskis downgoing on the left leg. I did not test the right leg. NEUROLOGIC: He does not have any focal deficits. Sedated. Moving all extremities spontaneously but really not able to cooperate with a neurological exam at this time. Opens his eye to my voice and will say yes or no to my questions but his pain has left him almost nonverbal. LABORATORY DATA: Sodium 134, potassium 4, BUN 20, creatinine 0.8, random glucose 174, total bilirubin 1.4. Liver enzymes normal. Albumin 3.1. INR 1.1. White cell count 9.7, hemoglobin 11.6, hematocrit 34.3, platelet count 260. IMAGING: Chest x-ray without cardiopulmonary abnormality demonstrated. Elevated right hemidiaphragm has been seen in all of his chest x-rays. Head CT and pelvis x-ray already discussed in history of present illness. ASSESSMENT/PLAN 1. Right intertrochanteric femur fracture after a ground-level fall. This patient is already probably osteopenic after his antiestrogen therapy and aging. a. Plan: Admit the patient to inpatient status. b. Attestation: The patient will be admitted less than 96 hours. c. Orthopedic consult already obtained. d. Anticipate surgery in the next 24-48 hours because of Plavix use. e. Deep venous thrombosis prophylaxis will be thromboembolism deterrent hose sequential compression devices. f. Pain management will be with Dilaudid, since that seemed to work more than the morphine in the emergency room. Neither drug has completely eliminated his pain according to the family, but Dilaudid seemed to work better. 2. Preoperative cardiovascular exam. This gentleman does not have a history of myocardial infarction, atrial fibrillation, valvular heart disease. He does not have any kidney disease, but his performance score is quite poor. This is not a high-risk surgery, he does not have congestive heart failure, he is not on insulin, and his creatinine is less than 2, but he does have a history of stroke. His revised cardiac risk index, which estimates risk of cardiac complications after noncardiac surgery, is 0.9%, class II. Plavix will delay surgery somewhat according to the judgment of Anesthesia and Orthopedic Surgery. That may increase his risk of other complications such as pneumonia, deep venous thrombosis, etc. 3. Failure to thrive, with generalized weakness subsequent to that. Please see discussion under advance care planning. During his stay, we will try and maximize his nutritional status to allow him to heal from this hip fracture. We will also follow through with physical therapy evaluation. This gentleman was already weakened to begin with and basically sleeping in his lift chair. While there is some hope that he will respond to therapy, it is a small hope. 4. Hypertension. At this time, it appears to be on his medical list as a problem. Blood pressure was 141/77 in the emergency room on May 11. Today, it is 152/73, but in an 87-year-old gentleman who is having failure to thrive, I would suggest leaving his blood pressure at this level. No treatment at this time. Would use p.r.n. medications while he is here depending on what his blood pressure does. 5. Controlled type 2 diabetes mellitus, without complications, not on long- term insulin. At this time, appears to be diet controlled. Most of it probably has to do with his weight loss in the last few months. His A1c was as high as 7.7% in 2012; down to 6.4% in 2014; 6.3% in 2016; and 5.9, 5.6, and 5.4 since then. The most I would put him on is low- dose sliding-scale insulin. We will check a.c. t.i.d. glucose. If in the next 48 hours it looks like his glucose is controlled, I would stop that checking if only for comfort measures. 6. Metastatic prostate cancer to bone and pelvis adenopathy. Family had a few questions for me. Please refer to advance care planning talk under separate dictation. 7. History of cerebrovascular accident with mild cognitive impairment, residual dysphagia, residual verbal deficit. Again, we will do physical therapy and occupational therapy after surgery and see how he does. 8. DO NOT RESUSCITATE STATUS, WITH LIMITED INTERVENTION. Advance directive and POLST are in the chart. 9. Deep venous thrombosis prophylaxis will be thromboembolism deterrent hose and sequential compression devices. Because of his prostate cancer and use of antiandrogenic therapy, would recommend Lovenox in the postoperative setting starting on postoperative day 1. TD: 05/21/2018 18:10 [email or web address]
[2018-05-22] MEDS: SODIUM CHLORIDE FLUSH 0.9% 10 ML SYRINGE IVP PRN (00:55)
[2018-05-22] MEDS: MORPHINE 2 MG/ML SYRINGE IVP PRN ×3 (00:55→20:38)
[2018-05-22] MEDS: SODIUM CHLORIDE FLUSH 0.9% 10 ML SYRINGE IVP SCH ×3 (00:55→20:42)
[2018-05-22] MEDS: traMADol 50 MG TABLET PO PRN ×3 (05:59→22:20)
--- NOTE | 2018-05-22 08:21 | PROVIDER PROGRESS NOTE ---
Subjective - Prog Note Date Prog Note Date: 05/22/18 Prog Note Time: 08:18 - Subjective Subjective: pain his the main problem, in his hip. denies cp, but he is so tired, anhedonic Current Medications - Current Medications Current Medications: Active Medications Acetaminophen (Tylenol) 650 mg PO Q4HR PRN PRN Reason: Pain or Fever > 38C (100.4F) Allopurinol (Zyloprim) 150 mg PO DAILY [facility] Atorvastatin Calcium (Lipitor) 20 mg PO QPM [facility] Last Admin: 05/21/18 20:29 Dose: 20 mg Escitalopram Oxalate (Lexapro) 20 mg PO DAILY [facility] Sodium Chloride (Normal Saline 0.9%) 1,000 mls @ 85 mls/hr IV .[id number] [facility] Last Admin: 05/21/18 21:17 Dose: 85 mls/hr Latanoprost (Xalatan Ophth Drops) 1 drops EACHEYE QPM [facility] Last Admin: 05/21/18 20:29 Dose: 1 drops Loperamide HCl (Imodium) 2 mg PO DAILY PRN PRN Reason: Diarrhea Loratadine (Claritin) 10 mg PO DAILY [facility] Morphine Sulfate (Morphine) 2 mg IVP Q2H PRN PRN Reason: PAIN Last Admin: 05/22/18 00:55 Dose: 2 mg Polyethylene Glycol (Miralax) 17 gm PO DAILY [facility] Sodium Chloride (Normal Saline Flush 0.9%) 10 ml IVP PRN PRN PRN Reason: NEEDED PER PROVIDER ORDERS Last Admin: 05/22/18 00:55 Dose: 10 ml Sodium Chloride (Normal Saline Flush 0.9%) 10 ml IVP 0100,0900,1700 [facility] Last Admin: 05/22/18 00:55 Dose: 10 ml Tramadol HCl (Ultram) 50 mg PO Q6H PRN PRN Reason: PAIN Last Admin: 05/22/18 05:59 Dose: 50 mg Atorvastatin [Lipitor] 20 mg PO DAILY 07/05/17 Clopidogrel [Plavix] 75 mg PO DAILY 07/05/17 Escitalopram [Lexapro] 20 mg PO DAILY 07/05/17 Latanoprost 0.005% Ophth Drops [Xalatan Ophth Drops] 1 drops EACHEYE DAILY 07/05 Allopurinol 150 mg PO DAILY 09/06/17 Cholecalciferol (Vitamin D3) [Vitamin D3] 1,000 unit PO DAILY 09/06/17 Loperamide HCl [Anti-Diarrheal] 2 mg PO DAILY PRN 09/06/17 Loratadine 10 mg PO DAILY 09/06/17 Multivitamin [Multivitamins] 1 tab PO DAILY 09/06/17 Objective - Vital Signs/Intake & Output Reviewed Vital Signs: Yes Vital Signs: Vital Signs x48h Temp Pulse Resp BP Pulse Ox 05/22/18 07:53 36.8 C 108 H 22 140/78 H 93 Intake & Output: Intake & Output 05/19/18 05/20/18 05/21/18 05/22/18 23:59 23:59 23:59 23:59 Intake Total 1041.083 Output Total 100 475 Balance 941.083 -475 - Objective General Appearance: positive: No acute distress, Moderate distress (from the hip pain) Eyes Bilateral: positive: PERRL ENT: positive: Dry mucous membranes Neck: positive: No JVD Respiratory: positive: Chest non-tender, No respiratory distress, Rales Cardiovascular: positive: Regular rate & rhythm, No gallop Abdomen: positive: Non-tender, Nml bowel sounds, No distention Extremities: positive: Pedal edema Neurologic/Psychiatric: positive: Motor nml, Disoriented to place, Disoriented to time, Weakness, Depressed mood/affect - Lab Results Fish Bones: 05/22/18 08:30 05/22/18 08:30 ABX Reporting Has patient been on IV antibiotics over the past 48 hours?: No Assessment/Plan - Problem List (1) Intertrochanteric fracture of right hip Impression: surgery is 3-5 days per discretion of orthopedic surgeon. today is day #1. Qualifiers: Encounter type: initial encounter Fracture type: closed Fracture alignment: displaced Qualified Code(s): S72.141A - Displaced intertrochanteric fracture of right femur, initial encounter for closed fracture (2) Failure to thrive syndrome, adult Impression: from his metastatic prostate cancer and his depression and stroke residual. With his hip fracture and delay because of plavix, I fear his deterioration will rapidly progress. Await surgical results then make discharge plans. (3) Pain due to fracture Impression: morphine ordered. will try dilaudid prn instead to see if better control. (4) Controlled type 2 diabetes mellitus without complication Impression: glucose 174 this am. on low dose SSI. Qualifiers: Diabetes mellitus ferry terminal agent insulin use: without ferry terminal agent use Qualified Code(s): E11.9 - Type 2 diabetes mellitus without complications (5) Prostate cancer metastatic to pelvis Impression: and mets to bone. No further treatment for the cancer. Transition to probable Hospice after discharge if he cannot physically comply with the PT requirement.
[2018-05-22 08:34] LABS: BASOPHILS % (AUTO) 0.5 %; EOSINOPHILS # (AUTO) 0.1 10^3/uL (0.0-0.7); EOSINOPHILS % (AUTO) 0.7 %; LYMPHOCYTES # (AUTO) 1.1 10^3/uL (1.5-3.5); LYMPHOCYTES % (AUTO) 12.9 %; MEAN CORPUSCULAR HEMOGLOBIN 30.9 pg (27.0-31.0); MEAN CORPUSCULAR HGB CONC 34.7 g/dL (32.0-36.0); MEAN CORPUSCULAR VOLUME 89.1 fL (80.0-94.0); MEAN PLATELET VOLUME 6.5 fL (7.4-11.4); MONOCYTES # (AUTO) 0.8 10^3/uL (0.0-1.0); MONOCYTES % (AUTO) 9.1 %; NEUTROPHILS # (AUTO) 6.4 10^3/uL (1.5-6.6); NEUTROPHILS % (AUTO) 76.8 %; PLT - PLATELET COUNT 188 10^3/uL (130-450); RED BLOOD COUNT 3.24 10^6/uL (4.70-6.10); RED CELL DISTRIBUTION WIDTH 14.9 % (12.0-15.0); WHITE BLOOD COUNT 8.3 x10^3/uL (4.8-10.8)
[2018-05-22 08:45] LABS: CALCIUM 8.6 mg/dL (8.5-10.3); CREATININE 0.8 mg/dL (0.6-1.2)
[2018-05-22] MEDS: SODIUM CHLORIDE 0.9% 1,000 ML IV SCH ×2 (09:12→21:18)
[2018-05-22] MEDS: LORATADINE 10 MG TABLET PO SCH (10:01)
[2018-05-22] MEDS: ALLOPURINOL 100 MG TABLET PO SCH (10:01)
[2018-05-22] MEDS: POLYETHYLENE GLYCOL 3350 17 GM PACKET PO SCH (10:04)
[2018-05-22] MEDS: ESCITALOPRAM 10 MG TABLET PO SCH (10:04)
[2018-05-22] MEDS: ATORVASTATIN 10 MG TABLET PO SCH (21:22)
[2018-05-22] MEDS: LATANOPROST 0.005% OPHTH DROPS EACHEYE SCH (21:23)
[2018-05-23] MEDS: SODIUM CHLORIDE FLUSH 0.9% 10 ML SYRINGE IVP PRN ×2 (00:41→03:46)
[2018-05-23] MEDS: MORPHINE 2 MG/ML SYRINGE IVP PRN ×5 (00:41→18:43)
[2018-05-23] MEDS: SODIUM CHLORIDE FLUSH 0.9% 10 ML SYRINGE IVP SCH ×3 (00:42→18:02)
[2018-05-23] MEDS: traMADol 50 MG TABLET PO PRN ×2 (04:48→13:27)
[2018-05-23 05:50] LABS: BASOPHILS % (AUTO) 0.3 %; EOSINOPHILS # (AUTO) 0.1 10^3/uL (0.0-0.7); EOSINOPHILS % (AUTO) 0.9 %; HGB - HEMOGLOBIN 9.4 g/dL (14.0-18.0); LYMPHOCYTES # (AUTO) 1.1 10^3/uL (1.5-3.5); LYMPHOCYTES % (AUTO) 10.7 %; MEAN CORPUSCULAR HEMOGLOBIN 31.3 pg (27.0-31.0); MEAN CORPUSCULAR HGB CONC 34.9 g/dL (32.0-36.0); MEAN CORPUSCULAR VOLUME 89.8 fL (80.0-94.0); MEAN PLATELET VOLUME 6.8 fL (7.4-11.4); MONOCYTES % (AUTO) 10.5 %; NEUTROPHILS # (AUTO) 7.7 10^3/uL (1.5-6.6); NEUTROPHILS % (AUTO) 77.6 %; PLT - PLATELET COUNT 160 10^3/uL (130-450); RED BLOOD COUNT 2.99 10^6/uL (4.70-6.10); RED CELL DISTRIBUTION WIDTH 14.9 % (12.0-15.0); WHITE BLOOD COUNT 9.9 x10^3/uL (4.8-10.8)
[2018-05-23 06:03] LABS: CALCIUM 8.3 mg/dL (8.5-10.3); CREATININE 0.7 mg/dL (0.6-1.2)
[2018-05-23] MEDS: ESCITALOPRAM 10 MG TABLET PO SCH (08:39)
[2018-05-23] MEDS: ALLOPURINOL 100 MG TABLET PO SCH (08:39)
[2018-05-23] MEDS: LORATADINE 10 MG TABLET PO SCH (08:41)
[2018-05-23] MEDS: POLYETHYLENE GLYCOL 3350 17 GM PACKET PO SCH (08:43)
--- NOTE | 2018-05-23 14:08 | PROVIDER PROGRESS NOTE ---
Subjective - Prog Note Date Prog Note Date: 05/23/18 Prog Note Time: 12:10 - Subjective Pt reports feeling: Improved Subjective: The patient says he feels pretty well. He only has pain in his hip if he moves his leg but at rest his leg is pain-free. He denies any fevers or chills, shortness of breath or chest pain. Current Medications - Current Medications Current Medications: Active Medications Generic Name Dose Route Start Last Admin Trade Name Freq PRN Reason Stop Dose Admin Acetaminophen 650 mg 05/21/18 15:15 Tylenol PO Q4HR PRN Pain or Fever > 38C (100.4F) Allopurinol 150 mg 05/22/18 09:00 05/23/18 08:39 Zyloprim PO 150 mg DAILY AMI Administration Atorvastatin Calcium 20 mg 05/21/18 21:00 05/22/18 21:22 Lipitor PO 20 mg QPM AMI Administration Escitalopram Oxalate 20 mg 05/22/18 09:00 05/23/18 08:39 Lexapro PO 20 mg DAILY AMI Administration Hydromorphone HCl 2 mg 05/22/18 08:26 Dilaudid (Vial) IVP Q2H PRN PAIN Sodium Chloride 1,000 mls @ 85 mls/hr 05/21/18 16:00 05/22/18 21:18 Normal Saline 0.9% IV 85 mls/hr .[id number] AMI Administration Latanoprost 1 drops 05/21/18 21:00 05/22/18 21:23 Xalatan Ophth Drops EACHEYE 1 drops QPM AMI Administration Loperamide HCl 2 mg 05/21/18 15:29 Imodium PO DAILY PRN Diarrhea Loratadine 10 mg 05/22/18 09:00 05/23/18 08:41 Claritin PO 10 mg DAILY AMI Administration Morphine Sulfate 2 mg 05/21/18 15:15 05/23/18 11:30 Morphine IVP 2 mg Q2H PRN Administration PAIN Polyethylene Glycol 17 gm 05/22/18 09:00 05/23/18 08:43 Miralax PO Not Given DAILY AMI Sodium Chloride 10 ml 05/21/18 15:13 05/23/18 03:46 Normal Saline Flush 0.9% IVP 10 ml PRN PRN Administration NEEDED PER PROVIDER ORDERS Sodium Chloride 10 ml 05/21/18 17:00 05/23/18 08:08 Normal Saline Flush 0.9% IVP 10 ml 0100,0900,1700 AMI Administration Tramadol HCl 50 mg 05/21/18 15:29 05/23/18 13:27 Ultram PO 50 mg Q6H PRN Administration PAIN Clopidogrel [Plavix] 75 mg PO DAILY 07/05/17 Latanoprost 0.005% Ophth Drops [Xalatan Ophth Drops] 1 drops EACHEYE QPM Allopurinol 150 mg PO DAILY 09/06/17 Loperamide HCl [Anti-Diarrheal] 2 mg PO Q2H PRN 09/06/17 Multivitamin [Multivitamins] 1 tab PO DAILY 09/06/17 Atorvastatin Calcium 20 mg PO QPM 05/22/18 Cholecalciferol (Vitamin D3) [Vitamin D] 2,000 unit PO DAILY 05/22/18 Escitalopram Oxalate [Lexapro] 20 mg PO DAILY 05/22/18 Loratadine [Claritin] 10 mg PO DAILY PRN 05/22/18 Objective - Vital Signs/Intake & Output Reviewed Vital Signs: Yes Vital Signs: Vital Signs x48h Temp Pulse Resp BP Pulse Ox 05/23/18 08:00 36.5 C 107 H 18 129/82 H 94 Intake & Output: Intake & Output 05/20/18 05/21/18 05/22/18 05/23/18 23:59 23:59 23:59 23:59 Intake Total 4234.125 4235 300 Output Total 100 2345 700 Balance 941.083 905 -400 - Objective General Appearance: positive: No acute distress, Alert Eyes Bilateral: positive: Normal inspection, PERRL, EOMI, No lid inflammation, Conjunctivae nml, No scleral icterus ENT: positive: ENT inspection nml, Pharynx nml, No signs of dehydration Neck: positive: Nml inspection, Thyroid nml, No JVD, Trachea midline. negative : Thyromegaly Respiratory: positive: Chest non-tender, No respiratory distress, Breath sounds nml. negative: Wheezes, Rales, Rhonchi Cardiovascular: positive: Regular rate & rhythm, No murmur, No gallop Abdomen: positive: Non-tender, No organomegaly, Nml bowel sounds, No distention. negative: Guarding, Rebound Back: positive: Nml inspection. negative: CVA tenderness (R), CVA tenderness (L ) Skin: positive: Color nml, No rash, Warm, Dry. negative: Cyanosis Extremities: positive: Non-tender, Full ROM, Nml appearance, No pedal edema Neurologic/Psychiatric: positive: Oriented x3, CN's nml (2-12), Motor nml, Sensation nml, Mood/affect nml - Lab Results Fish Bones: 05/23/18 05:31 05/23/18 05:31 Other Labs: Lab Results x24hrs 05/23/18 05/23/18 Range/Units 05:31 05:31 WBC 9.9 (4.8-10.8) x10^3/uL RBC 2.99 L (4.70-6.10) 10^6/uL Hgb 9.4 L (14.0-18.0) g/dL Hct 26.9 L (42.0-52.0) % MCV 89.8 (80.0-94.0) fL MCH 31.3 H (27.0-31.0) pg MCHC 34.9 (32.0-36.0) g/dL RDW 14.9 (12.0-15.0) % Plt Count 160 (130-450) 10^3/uL MPV 6.8 L (7.4-11.4) fL Neut # (Auto) 7.7 H (1.5-6.6) 10^3/uL Lymph # (Auto) 1.1 L (1.5-3.5) 10^3/uL [place] # (Auto) 1.0 (0.0-1.0) 10^3/uL Eos # (Auto) 0.1 (0.0-0.7) 10^3/uL Baso # (Auto) 0.0 (0.0-0.1) 10^3/uL Absolute Nucleated RBC 0.00 x10^3/uL Nucleated RBC % 0.0 /100WBC Sodium 133 L (135-145) mmol/L Potassium 3.9 (3.5-5.0) mmol/L Chloride 101 (101-111) mmol/L Carbon Dioxide 25 (21-32) mmol/L Anion Gap 7.0 (6-13) BUN 13 (6-20) mg/dL Creatinine 0.7 (0.6-1.2) mg/dL Estimated GFR (MDRD) 107 (>89) Glucose 169 H (70-100) mg/dL Calcium 8.3 L (8.5-10.3) mg/dL - Diagnostic Imaging Diagnostic Imaging Results: positive: Final report reviewed Diagnostic Imaging Comments: EXAM: CT CERVICAL SPINE WITHOUT CONTRAST DATE: 05/21/2018 02:27 PM. HISTORY: Head inj. COMPARISONS: None. TECHNIQUE: Thin-section axial images were acquired of the cervical spine without contrast. Post-processing: Coronal and sagittal reformats. Other: None. In accordance with CT protocol optimization, one or more of the following dose reduction techniques were utilized for this exam: automated exposure control, adjustment of mA and/or KV based on patient size, or use of iterative reconstructive technique. FINDINGS: Alignment: No scoliosis or spondylolisthesis. Bones: No acute fracture. Interspace Levels/Facets: Multilevel moderate disk degeneration and mild to moderate facet arthrosis. No significant spinal canal stenosis. Musculature: Fatty atrophy. Other: Surgical material in the right neck. The lung apices are clear. IMPRESSION: No acute fracture. EXAM: [id number] CT/HEADWO ([id number]) Procedure Date: 05/21/2018 Accession Number: [id number] / [id number] Procedure: CT - Head W/O CPT Code: FULL RESULT: EXAM: CT HEAD EXAM DATE: 05/21/2018 02:27 PM. CLINICAL HISTORY: Head inj. COMPARISON: 03/06/2018. TECHNIQUE: Multiaxial CT images were obtained from the foramen magnum to the vertex. Reformats: Sagittal and coronal. IV contrast: None. In accordance with CT protocol optimization, one or more of the following dose reduction techniques were utilized for this exam: automated exposure control, adjustment of mA and/or KV based on patient size, or use of iterative reconstructive technique. FINDINGS: Parenchyma: No intraparenchymal hemorrhage. No evidence of mass, midline shift, or CT findings of infarction. 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 White matter disease is unchanged. Mercado-white differentiation is distinct. Extraaxial Spaces: Normal for age. No subdural or epidural collections identified. Ventricles: Normal in size and position. Sinuses and Orbits: Imaged paranasal sinuses, orbits, and mastoids show no significant abnormality. Bones: No evidence of fracture or calvarial defect. Other: None. IMPRESSION: No acute intracranial abnormality or significant change. EXAM: RIGHT HIP AND PELVIS RADIOGRAPHY EXAM DATE: 05/21/2018 02:44 PM. HISTORY: Right hip pain. COMPARISONS: None. TECHNIQUE: 1 view of the pelvis and 1 view of the hip. FINDINGS: Bones: Mildly angulated and displaced right intertrochanteric fracture is seen. The remainder osseous structures are intact. Bones are slightly osteopenic. Joints: There is mild degenerative changes seen in the hip joints, right side greater than left side. Additional degenerative changes are seen in the lower spine. Soft Tissues: Normal. No soft tissue swelling. IMPRESSION: Mildly displaced and angulated right intertrochanteric fracture. EXAM: CHEST RADIOGRAPHY EXAM DATE: 05/21/2018 02:44 PM. CLINICAL HISTORY: Acute pain due to trauma. COMPARISON: 05/11/2018. 03/06/18. TECHNIQUE: 1 view. FINDINGS: Lungs/Pleura: No focal opacities evident. No pleural effusion. No pneumothorax. Elevated right hemidiaphragm is again seen similar to prior CT. Mediastinum: Within exam limitations, the cardiomediastinal contour is normal. Other: None. IMPRESSION: No acute cardiopulmonary abnormality demonstrated. Elevated right hemidiaphragm is again seen. ABX Reporting Has patient been on IV antibiotics over the past 48 hours?: No Assessment/Plan - Problem List (1) Intertrochanteric fracture of right hip Impression: The patient's surgery is delayed from 3-5 days per discretion of the orthopedic surgeon because of his prior use of Plavix. At this time his pain is appears to be well-managed when his leg is stable and there are no signs of any shortness of breath, fevers, chills, or any other new problems. Qualifiers: Encounter type: initial encounter Fracture type: closed Fracture alignment: displaced Qualified Code(s): S72.141A - Displaced intertrochanteric fracture of right femur, initial encounter for closed fracture (2) Failure to thrive syndrome, adult Impression: The patient will be bedbound for a minimum of 6 days before he can be up following his surgery. Because of his already debilitated state due to his prostate cancer and stroke residual, he will likely experience rapid deconditioning which he will be unlikely to recover from. He has lost a significant amount of weight due to his metastatic prostate cancer. He may eat whatever he likes and nutrition has been consulted. (3) Pain due to fracture Impression: Well-managed, especially when the leg is stable. Continue present care. (4) Controlled type 2 diabetes mellitus without complication Impression: The patient is currently receiving sliding scale coverage for his hyperglycemia. Continue present care. 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 It is unlikely he will be able to participate in his physical therapy and will likely be discharged home with hospice care in place. He is not considered to be a candidate for any further cancer treatment at this time.
[2018-05-23] MEDS: SODIUM CHLORIDE 0.9% 1,000 ML IV SCH (14:24)
[2018-05-23] MEDS: ATORVASTATIN 10 MG TABLET PO SCH (20:50)
[2018-05-23] MEDS: LATANOPROST 0.005% OPHTH DROPS EACHEYE SCH (20:50)
[2018-05-23] MEDS: ACETAMINOPHEN 325 MG TABLET PO PRN (20:53)
[2018-05-24] MEDS: SODIUM CHLORIDE FLUSH 0.9% 10 ML SYRINGE IVP SCH ×3 (00:45→16:54)
[2018-05-24] MEDS: MORPHINE 2 MG/ML SYRINGE IVP PRN (00:53)
[2018-05-24] MEDS: SODIUM CHLORIDE 0.9% 1,000 ML IV SCH ×2 (02:02→13:36)
[2018-05-24 05:19] LABS: BASOPHILS % (AUTO) 0.3 %; EOSINOPHILS # (AUTO) 0.2 10^3/uL (0.0-0.7); EOSINOPHILS % (AUTO) 1.6 %; HGB - HEMOGLOBIN 9.3 g/dL (14.0-18.0); LYMPHOCYTES # (AUTO) 1.1 10^3/uL (1.5-3.5); LYMPHOCYTES % (AUTO) 10.2 %; MEAN CORPUSCULAR HEMOGLOBIN 30.9 pg (27.0-31.0); MEAN CORPUSCULAR HGB CONC 34.1 g/dL (32.0-36.0); MEAN CORPUSCULAR VOLUME 90.5 fL (80.0-94.0); MEAN PLATELET VOLUME 6.9 fL (7.4-11.4); MONOCYTES % (AUTO) 9.3 %; NEUTROPHILS # (AUTO) 8.1 10^3/uL (1.5-6.6); NEUTROPHILS % (AUTO) 78.6 %; PLT - PLATELET COUNT 162 10^3/uL (130-450); RED CELL DISTRIBUTION WIDTH 15.1 % (12.0-15.0); WHITE BLOOD COUNT 10.3 x10^3/uL (4.8-10.8)
[2018-05-24 05:24] LABS: CALCIUM 8.1 mg/dL (8.5-10.3); CREATININE 0.7 mg/dL (0.6-1.2)
[2018-05-24] MEDS: HYDROmorphone 2 MG/ML VIAL IVP PRN ×4 (08:49→20:12)
[2018-05-24] MEDS: ESCITALOPRAM 10 MG TABLET PO SCH ×2 (08:50→10:53)
[2018-05-24] MEDS: ALLOPURINOL 100 MG TABLET PO SCH (08:51)
[2018-05-24] MEDS: POLYETHYLENE GLYCOL 3350 17 GM PACKET PO SCH (08:51)
[2018-05-24] MEDS: LORATADINE 10 MG TABLET PO SCH (08:51)
[2018-05-24 11:44] LABS: INR 1.4 (0.8-1.2); PT - PROTHROMBIN TIME 15.3 secs (9.9-12.6)
[2018-05-24] MEDS: CYCLOBENZAPRINE 10 MG TABLET PO PRN ×2 (13:40→22:37)
--- NOTE | 2018-05-24 16:03 | PROVIDER PROGRESS NOTE ---
Subjective - Prog Note Date Prog Note Date: 05/24/18 Prog Note Time: 12:45 - Subjective Pt reports feeling: No change Subjective: Patient says he feels well. His pain has been well managed, especially when he has not moved his leg, but he is complaining of some muscle spasms. He denies any fevers, chills, shortness of breath, or chest pain. Current Medications - Current Medications Current Medications: Active Medications Generic Name Dose Route Start Last Admin Trade Name Freq PRN Reason Stop Dose Admin Acetaminophen 650 mg 05/21/18 15:15 05/23/18 20:53 Tylenol PO 650 mg Q4HR PRN Administration Pain or Fever > 38C (100.4F) Allopurinol 150 mg 05/22/18 09:00 05/24/18 08:51 Zyloprim PO 150 mg DAILY AMI Administration Atorvastatin Calcium 20 mg 05/21/18 21:00 05/23/18 20:50 Lipitor PO 20 mg QPM AMI Administration Cyclobenzaprine HCl 10 mg 05/24/18 11:17 05/24/18 13:40 Flexeril PO 10 mg TID PRN Administration Spasms Escitalopram Oxalate 10 mg 05/24/18 11:00 05/24/18 10:53 Lexapro PO Not Given DAILY AMI Hydromorphone HCl 2 mg 05/22/18 08:26 05/24/18 13:39 Dilaudid (Vial) IVP 2 mg Q2H PRN Administration PAIN Sodium Chloride 1,000 mls @ 85 mls/hr 05/21/18 16:00 05/24/18 13:36 Normal Saline 0.9% IV 85 mls/hr .[id number] AMI Administration Latanoprost 1 drops 05/21/18 21:00 05/23/18 20:50 Xalatan Ophth Drops EACHEYE 1 drops QPM AMI Administration Loperamide HCl 2 mg 05/21/18 15:29 Imodium PO DAILY PRN Diarrhea Loratadine 10 mg 05/22/18 09:00 05/24/18 08:51 Claritin PO 10 mg DAILY AMI Administration Morphine Sulfate 2 mg 05/21/18 15:15 05/24/18 00:53 Morphine IVP 2 mg Q2H PRN Administration PAIN Polyethylene Glycol 17 gm 05/22/18 09:00 05/24/18 08:51 Miralax PO 17 gm DAILY AMI Administration Sodium Chloride 10 ml 05/21/18 15:13 05/23/18 03:46 Normal Saline Flush 0.9% IVP 10 ml PRN PRN Administration NEEDED PER PROVIDER ORDERS Sodium Chloride 10 ml 05/21/18 17:00 05/24/18 00:53 Normal Saline Flush 0.9% IVP 10 ml 0100,0900,1700 AMI Administration Tramadol HCl 50 mg 05/21/18 15:29 05/23/18 13:27 Ultram PO 50 mg Q6H PRN Administration PAIN Clopidogrel [Plavix] 75 mg PO DAILY 07/05/17 Latanoprost 0.005% Ophth Drops [Xalatan Ophth Drops] 1 drops EACHEYE QPM Allopurinol 150 mg PO DAILY 09/06/17 Loperamide HCl [Anti-Diarrheal] 2 mg PO Q2H PRN 09/06/17 Multivitamin [Multivitamins] 1 tab PO DAILY 09/06/17 Atorvastatin Calcium 20 mg PO QPM 05/22/18 Cholecalciferol (Vitamin D3) [Vitamin D] 2,000 unit PO DAILY 05/22/18 Escitalopram Oxalate [Lexapro] 20 mg PO DAILY 05/22/18 Loratadine [Claritin] 10 mg PO DAILY PRN 05/22/18 Objective - Vital Signs/Intake & Output Reviewed Vital Signs: Yes Vital Signs: Vital Signs x48h Temp Pulse Resp BP Pulse Ox 05/24/18 15:33 37.1 C 103 H 18 118/64 91 L Intake & Output: Intake & Output 05/21/18 05/22/18 05/23/18 05/24/18 23:59 23:59 23:59 23:59 Intake Total 5815.978 0605 1800 2372.000 Output Total 100 2345 800 200 Balance 941.977 133 7882 2172.000 - Objective General Appearance: positive: No acute distress, Alert Eyes Bilateral: positive: Normal inspection, PERRL, EOMI, No lid inflammation, Conjunctivae nml, No scleral icterus ENT: positive: ENT inspection nml, Pharynx nml, No signs of dehydration Neck: positive: Nml inspection, Thyroid nml, No JVD, Trachea midline. negative : Thyromegaly Respiratory: positive: Chest non-tender, No respiratory distress, Breath sounds nml. negative: Wheezes, Rales, Rhonchi Cardiovascular: positive: Regular rate & rhythm, No murmur, No gallop Abdomen: positive: Non-tender, No organomegaly, Nml bowel sounds, No distention. negative: Guarding, Rebound Back: positive: Nml inspection. negative: CVA tenderness (R), CVA tenderness (L ) Skin: positive: Color nml, No rash, Warm, Dry. negative: Cyanosis Extremities: positive: Non-tender, Full ROM, Nml appearance, No pedal edema Neurologic/Psychiatric: positive: Oriented x3, CN's nml (2-12), Motor nml, Sensation nml, Mood/affect nml - Lab Results Fish Bones: 05/24/18 04:55 05/24/18 04:55 Other Labs: Lab Results x24hrs 05/24/18 05/24/18 05/24/18 Range/Units 11:25 04:55 04:55 WBC 10.3 (4.8-10.8) x10^3/uL RBC 3.00 L (4.70-6.10) 10^6/uL Hgb 9.3 L (14.0-18.0) g/dL Hct 27.2 L (42.0-52.0) % MCV 90.5 (80.0-94.0) fL MCH 30.9 (27.0-31.0) pg MCHC 34.1 (32.0-36.0) g/dL RDW 15.1 H (12.0-15.0) % Plt Count 162 (130-450) 10^3/uL MPV 6.9 L (7.4-11.4) fL Neut # (Auto) 8.1 H (1.5-6.6) 10^3/uL Lymph # (Auto) 1.1 L (1.5-3.5) 10^3/uL [place] # (Auto) 1.0 (0.0-1.0) 10^3/uL Eos # (Auto) 0.2 (0.0-0.7) 10^3/uL Baso # (Auto) 0.0 (0.0-0.1) 10^3/uL Absolute Nucleated RBC 0.00 x10^3/uL Nucleated RBC % 0.0 /100WBC PT 15.3 H (9.9-12.6) secs INR 1.4 H (0.8-1.2) Sodium 132 L (135-145) mmol/L Potassium 3.4 L (3.5-5.0) mmol/L Chloride 101 (101-111) mmol/L Carbon Dioxide 25 (21-32) mmol/L Anion Gap 6.0 (6-13) BUN 12 (6-20) mg/dL Creatinine 0.7 (0.6-1.2) mg/dL Estimated GFR (MDRD) 107 (>89) Glucose 172 H (70-100) mg/dL Calcium 8.1 L (8.5-10.3) mg/dL - Diagnostic Imaging Diagnostic Imaging Results: positive: Final report reviewed Diagnostic Imaging Comments: EXAM: CT CERVICAL SPINE WITHOUT CONTRAST DATE: 05/21/2018 02:27 PM. HISTORY: Head inj. COMPARISONS: None. TECHNIQUE: Thin-section axial images were acquired of the cervical spine without contrast. Post-processing: Coronal and sagittal reformats. Other: None. In accordance with CT protocol optimization, one or more of the following dose reduction techniques were utilized for this exam: automated exposure control, adjustment of mA and/or KV based on patient size, or use of iterative reconstructive technique. FINDINGS: Alignment: No scoliosis or spondylolisthesis. Bones: No acute fracture. Interspace Levels/Facets: Multilevel moderate disk degeneration and mild to moderate facet arthrosis. No significant spinal canal stenosis. Musculature: Fatty atrophy. Other: Surgical material in the right neck. The lung apices are clear. IMPRESSION: No acute fracture. EXAM: [id number] CT/HEADWO ([id number]) Procedure Date: 05/21/2018 Accession Number: [id number] / [id number] Procedure: CT - Head W/O CPT Code: FULL RESULT: EXAM: CT HEAD EXAM DATE: 05/21/2018 02:27 PM. CLINICAL HISTORY: Head inj. COMPARISON: 03/06/2018. TECHNIQUE: Multiaxial CT images were obtained from the foramen magnum to the vertex. Reformats: Sagittal and coronal. IV contrast: None. In accordance with CT protocol optimization, one or more of the following dose reduction techniques were utilized for this exam: automated exposure control, adjustment of mA and/or KV based on patient size, or use of iterative reconstructive technique. FINDINGS: Parenchyma: No intraparenchymal hemorrhage. No evidence of mass, midline shift, or CT findings of infarction. 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 White matter disease is unchanged. Mercado-white differentiation is distinct. Extraaxial Spaces: Normal for age. No subdural or epidural collections identified. Ventricles: Normal in size and position. Sinuses and Orbits: Imaged paranasal sinuses, orbits, and mastoids show no significant abnormality. Bones: No evidence of fracture or calvarial defect. Other: None. IMPRESSION: No acute intracranial abnormality or significant change. EXAM: RIGHT HIP AND PELVIS RADIOGRAPHY EXAM DATE: 05/21/2018 02:44 PM. HISTORY: Right hip pain. COMPARISONS: None. TECHNIQUE: 1 view of the pelvis and 1 view of the hip. FINDINGS: Bones: Mildly angulated and displaced right intertrochanteric fracture is seen. The remainder osseous structures are intact. Bones are slightly osteopenic. Joints: There is mild degenerative changes seen in the hip joints, right side greater than left side. Additional degenerative changes are seen in the lower spine. Soft Tissues: Normal. No soft tissue swelling. IMPRESSION: Mildly displaced and angulated right intertrochanteric fracture. EXAM: CHEST RADIOGRAPHY EXAM DATE: 05/21/2018 02:44 PM. CLINICAL HISTORY: Acute pain due to trauma. COMPARISON: 05/11/2018. 03/06/18. TECHNIQUE: 1 view. FINDINGS: Lungs/Pleura: No focal opacities evident. No pleural effusion. No pneumothorax. Elevated right hemidiaphragm is again seen similar to prior CT. Mediastinum: Within exam limitations, the cardiomediastinal contour is normal. Other: None. IMPRESSION: No acute cardiopulmonary abnormality demonstrated. Elevated right hemidiaphragm is again seen. ABX Reporting Has patient been on IV antibiotics over the past 48 hours?: No Assessment/Plan - Problem List (1) Intertrochanteric fracture of right hip Impression: The patient's surgery is delayed from 3-5 days per discretion of the orthopedic surgeon because of his prior use of Plavix. At this time his pain is appears to be well-managed when his leg is stable and there are no signs of any shortness of breath, fevers, chills, or any other new problems. I will check a PT/INR tomorrow. Qualifiers: Encounter type: initial encounter Fracture type: closed Fracture alignment: displaced Qualified Code(s): S72.141A - Displaced intertrochanteric fracture of right femur, initial encounter for closed fracture (2) Failure to thrive syndrome, adult Impression: The patient had been becoming increasingly bedbound prior to fracturing his hip according to his PCP. At this time it appears that the patient will be bedbound for a minimum of 6 days before he can be up following his surgery. Because of his already debilitated state due to his prostate cancer and stroke residual, he will likely experience rapid deconditioning which he will be unlikely to recover from. He has lost a significant amount of weight due to his metastatic prostate cancer. He may eat whatever he likes and nutrition has been consulted. It might be best for him to go home with hospice services in place as he is certainly appropriate for hospice care. (3) Pain due to fracture Impression: Well-managed, especially when the leg is stable. Continue present care. (4) Controlled type 2 diabetes mellitus without complication Impression: We have the patient on a sliding scale for hyperglycemic coverage. Continue present care. 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 It is unlikely he will be able to participate in his physical therapy and will likely be discharged home with hospice care in place. He is not considered to be a candidate for any further cancer treatment at this time.
--- NOTE | 2018-05-24 18:42 | PROVIDER PROGRESS NOTE ---
Subjective - Prog Note Date Prog Note Date: 05/24/18 - Subjective Pt reports feeling: No change Objective - Vital Signs/Intake & Output Vital Signs: Vital Signs x48h Temp Pulse Resp BP Pulse Ox 05/24/18 15:33 37.1 C 103 H 18 118/64 91 L Intake & Output: Intake & Output 05/21/18 05/22/18 05/23/18 05/24/18 23:59 23:59 23:59 23:59 Intake Total 9792.404 7315 1800 2722.000 Output Total 100 2345 800 200 Balance 941.724 060 4712 2522.000 - Objective General Appearance: positive: No acute distress Extremities: positive: Other (right leg slightly shortened and rotated.) - Lab Results Fish Bones: 05/24/18 04:55 05/24/18 04:55 Other Labs: Lab Results x24hrs 05/24/18 05/24/18 05/24/18 Range/Units 11:25 04:55 04:55 WBC 10.3 (4.8-10.8) x10^3/uL RBC 3.00 L (4.70-6.10) 10^6/uL Hgb 9.3 L (14.0-18.0) g/dL Hct 27.2 L (42.0-52.0) % MCV 90.5 (80.0-94.0) fL MCH 30.9 (27.0-31.0) pg MCHC 34.1 (32.0-36.0) g/dL RDW 15.1 H (12.0-15.0) % Plt Count 162 (130-450) 10^3/uL MPV 6.9 L (7.4-11.4) fL Neut # (Auto) 8.1 H (1.5-6.6) 10^3/uL Lymph # (Auto) 1.1 L (1.5-3.5) 10^3/uL [place] # (Auto) 1.0 (0.0-1.0) 10^3/uL Eos # (Auto) 0.2 (0.0-0.7) 10^3/uL Baso # (Auto) 0.0 (0.0-0.1) 10^3/uL Absolute Nucleated RBC 0.00 x10^3/uL Nucleated RBC % 0.0 /100WBC PT 15.3 H (9.9-12.6) secs INR 1.4 H (0.8-1.2) Sodium 132 L (135-145) mmol/L Potassium 3.4 L (3.5-5.0) mmol/L Chloride 101 (101-111) mmol/L Carbon Dioxide 25 (21-32) mmol/L Anion Gap 6.0 (6-13) BUN 12 (6-20) mg/dL Creatinine 0.7 (0.6-1.2) mg/dL Estimated GFR (MDRD) 107 (>89) Glucose 172 H (70-100) mg/dL Calcium 8.1 L (8.5-10.3) mg/dL Assessment/Plan - Problem List (1) Intertrochanteric fracture of right hip Impression: We plan to take him to the OR on Tuesday. The risks involved in the procedure including bleeding infection and neurovascular damage have been explained and he agrees and wishes to proceed. Qualifiers: Encounter type: initial encounter Fracture type: closed Fracture alignment: displaced Qualified Code(s): S72.141A - Displaced intertrochanteric fracture of right femur, initial encounter for closed fracture
[2018-05-24] MEDS: traMADol 50 MG TABLET PO PRN (20:11)
[2018-05-24] MEDS: ATORVASTATIN 10 MG TABLET PO SCH (20:11)
[2018-05-24] MEDS: LATANOPROST 0.005% OPHTH DROPS EACHEYE SCH (20:12)
[2018-05-25] MEDS: SODIUM CHLORIDE 0.9% 1,000 ML IV SCH ×2 (01:12→13:08)
[2018-05-25] MEDS: SODIUM CHLORIDE FLUSH 0.9% 10 ML SYRINGE IVP SCH ×3 (01:12→15:23)
[2018-05-25] MEDS: HYDROmorphone 2 MG/ML VIAL IVP PRN ×4 (01:56→20:52)
[2018-05-25 04:57] LABS: BASOPHILS % (AUTO) 0.3 %; EOSINOPHILS # (AUTO) 0.2 10^3/uL (0.0-0.7); EOSINOPHILS % (AUTO) 2.5 %; HGB - HEMOGLOBIN 8.6 g/dL (14.0-18.0); LYMPHOCYTES # (AUTO) 1.1 10^3/uL (1.5-3.5); LYMPHOCYTES % (AUTO) 12.8 %; MEAN CORPUSCULAR HEMOGLOBIN 30.5 pg (27.0-31.0); MEAN CORPUSCULAR HGB CONC 34.4 g/dL (32.0-36.0); MEAN CORPUSCULAR VOLUME 88.6 fL (80.0-94.0); MEAN PLATELET VOLUME 7.1 fL (7.4-11.4); MONOCYTES # (AUTO) 0.9 10^3/uL (0.0-1.0); MONOCYTES % (AUTO) 10.4 %; NEUTROPHILS # (AUTO) 6.4 10^3/uL (1.5-6.6); PLT - PLATELET COUNT 171 10^3/uL (130-450); RED BLOOD COUNT 2.83 10^6/uL (4.70-6.10); RED CELL DISTRIBUTION WIDTH 15.4 % (12.0-15.0); WHITE BLOOD COUNT 8.7 x10^3/uL (4.8-10.8)
[2018-05-25 05:17] LABS: CALCIUM 7.9 mg/dL (8.5-10.3); CREATININE 0.7 mg/dL (0.6-1.2)
[2018-05-25] MEDS: ALLOPURINOL 100 MG TABLET PO SCH (08:49)
[2018-05-25] MEDS: ESCITALOPRAM 10 MG TABLET PO SCH (08:49)
[2018-05-25] MEDS: SODIUM CHLORIDE 1 GM TABLET PO SCH ×2 (08:49→16:16)
[2018-05-25] MEDS: POLYETHYLENE GLYCOL 3350 17 GM PACKET PO SCH (08:49)
[2018-05-25] MEDS: LORATADINE 10 MG TABLET PO SCH (08:49)
[2018-05-25] MEDS ORDERED: diphenhydrAMINE 25 MG CAPSULE PO PRN (12:57)
--- NOTE | 2018-05-25 13:14 | PROVIDER PROGRESS NOTE ---
Subjective - Prog Note Date Prog Note Date: 05/25/18 Objective - Vital Signs/Intake & Output Vital Signs: Vital Signs x48h Temp Pulse Resp BP Pulse Ox 05/25/18 08:00 37.1 C 102 H 19 117/68 99 Intake & Output: Intake & Output 05/22/18 05/23/18 05/24/18 05/25/18 23:59 23:59 23:59 23:59 Intake Total 3250 1800 3072.000 1752.25 Output Total 2345 800 600 600 Balance 905 1000 2472.000 1152.25 - Objective Neurologic/Psychiatric: positive: Other (Shortening and rotation of lower extremity is noted but unchanged from previous) - Lab Results Fish Bones: 05/25/18 04:30 05/25/18 04:30 Other Labs: Lab Results x24hrs 05/25/18 05/25/18 Range/Units 04:30 04:30 WBC 8.7 (4.8-10.8) x10^3/uL RBC 2.83 L (4.70-6.10) 10^6/uL Hgb 8.6 L (14.0-18.0) g/dL Hct 25.1 L (42.0-52.0) % MCV 88.6 (80.0-94.0) fL MCH 30.5 (27.0-31.0) pg MCHC 34.4 (32.0-36.0) g/dL RDW 15.4 H (12.0-15.0) % Plt Count 171 (130-450) 10^3/uL MPV 7.1 L (7.4-11.4) fL Neut # (Auto) 6.4 (1.5-6.6) 10^3/uL Lymph # (Auto) 1.1 L (1.5-3.5) 10^3/uL [place] # (Auto) 0.9 (0.0-1.0) 10^3/uL Eos # (Auto) 0.2 (0.0-0.7) 10^3/uL Baso # (Auto) 0.0 (0.0-0.1) 10^3/uL Absolute Nucleated RBC 0.01 x10^3/uL Nucleated RBC % 0.1 /100WBC Sodium 129 L (135-145) mmol/L Potassium 3.6 (3.5-5.0) mmol/L Chloride 99 L (101-111) mmol/L Carbon Dioxide 27 (21-32) mmol/L Anion Gap 3.0 L (6-13) BUN 12 (6-20) mg/dL Creatinine 0.7 (0.6-1.2) mg/dL Estimated GFR (MDRD) 107 (>89) Glucose 161 H (70-100) mg/dL Calcium 7.9 L (8.5-10.3) mg/dL Assessment/Plan - Problem List (1) Intertrochanteric fracture of right hip Impression: Plan IM nail of left leg. Risks were explained at length to patient's yesterday and she is aware of risk of bleeding, infection, and neurovascular damage. Qualifiers: Encounter type: initial encounter Fracture type: closed Fracture alignment: displaced Qualified Code(s): S72.141A - Displaced intertrochanteric fracture of right femur, initial encounter for closed fracture
[2018-05-25] MEDS: HYDROCORTISONE SUCCINATE 100 MG/2 ML VIAL IVP SCH ×3 (13:36→21:26)
[2018-05-25] MEDS: traMADol 50 MG TABLET PO PRN ×2 (16:16→22:34)
[2018-05-25] MEDS: CYCLOBENZAPRINE 10 MG TABLET PO PRN ×2 (16:16→22:34)
--- NOTE | 2018-05-25 16:54 | PROVIDER PROGRESS NOTE ---
Subjective - Prog Note Date Prog Note Date: 05/25/18 Prog Note Time: 12:00 - Subjective Pt reports feeling: No change Subjective: The patient says he is comfortable. The Flexeril which I gave him yesterday for muscle spasms has improved his pain and he denies any other new problems. He denies any shortness of breath, fevers, chills, or chest pain. Current Medications - Current Medications Current Medications: Active Medications Generic Name Dose Route Start Last Admin Trade Name Freq PRN Reason Stop Dose Admin Acetaminophen 650 mg 05/21/18 15:15 05/23/18 20:53 Tylenol PO 650 mg Q4HR PRN Administration Pain or Fever > 38C (100.4F) Allopurinol 150 mg 05/22/18 09:00 05/25/18 08:49 Zyloprim PO 150 mg DAILY AMI Administration Atorvastatin Calcium 20 mg 05/21/18 21:00 05/24/18 20:11 Lipitor PO 20 mg QPM AMI Administration Cyclobenzaprine HCl 10 mg 05/24/18 11:17 05/25/18 16:16 Flexeril PO 10 mg TID PRN Administration Spasms Diphenhydramine HCl 25 mg 05/25/18 12:57 Benadryl PO Q4HR PRN Allergy Symptoms Escitalopram Oxalate 10 mg 05/24/18 11:00 05/25/18 08:49 Lexapro PO 10 mg DAILY AMI Administration Hydrocortisone Sodium Succinate 100 mg 05/25/18 13:00 05/25/18 13:37 Solu-Cortef IVP Not Given TID AMI Hydromorphone HCl 2 mg 05/22/18 08:26 05/25/18 11:21 Dilaudid (Vial) IVP 2 mg Q2H PRN Administration PAIN Sodium Chloride 1,000 mls @ 85 mls/hr 05/21/18 16:00 05/25/18 13:08 Normal Saline 0.9% IV 85 mls/hr .[id number] AMI Administration Sodium Chloride 1,000 mls @ 0 mls/hr 05/25/18 13:00 Normal Saline 0.9% IV .Q0M AMI TKO Latanoprost 1 drops 05/21/18 21:00 05/24/18 20:12 Xalatan Ophth Drops EACHEYE 1 drops QPM AMI Administration Loperamide HCl 2 mg 05/21/18 15:29 Imodium PO DAILY PRN Diarrhea Loratadine 10 mg 05/22/18 09:00 05/25/18 08:49 Claritin PO 10 mg DAILY AMI Administration Morphine Sulfate 2 mg 05/21/18 15:15 05/24/18 00:53 Morphine IVP 2 mg Q2H PRN Administration PAIN Polyethylene Glycol 17 gm 05/22/18 09:00 05/25/18 08:49 Miralax PO 17 gm DAILY AMI Administration Sodium Chloride 10 ml 05/21/18 15:13 05/23/18 03:46 Normal Saline Flush 0.9% IVP 10 ml PRN PRN Administration NEEDED PER PROVIDER ORDERS Sodium Chloride 10 ml 05/21/18 17:00 05/25/18 15:23 Normal Saline Flush 0.9% IVP Not Given 0100,0900,1700 [facility] Sodium Chloride 1 gm 05/25/18 08:00 05/25/18 16:16 Salt Tab PO 1 gm BIDWM AMI Administration Tramadol HCl 50 mg 05/21/18 15:29 05/25/18 16:16 Ultram PO 50 mg Q6H PRN Administration PAIN Clopidogrel [Plavix] 75 mg PO DAILY 07/05/17 Latanoprost 0.005% Ophth Drops [Xalatan Ophth Drops] 1 drops EACHEYE QPM Allopurinol 150 mg PO DAILY 09/06/17 Loperamide HCl [Anti-Diarrheal] 2 mg PO Q2H PRN 09/06/17 Multivitamin [Multivitamins] 1 tab PO DAILY 09/06/17 Atorvastatin Calcium 20 mg PO QPM 05/22/18 Cholecalciferol (Vitamin D3) [Vitamin D] 2,000 unit PO DAILY 05/22/18 Escitalopram Oxalate [Lexapro] 20 mg PO DAILY 05/22/18 Loratadine [Claritin] 10 mg PO DAILY PRN 05/22/18 Objective - Vital Signs/Intake & Output Reviewed Vital Signs: Yes Vital Signs: Vital Signs x48h Temp Pulse Resp BP Pulse Ox 05/25/18 15:39 37.2 C 100 18 103/55 L 93 Intake & Output: Intake & Output 05/22/18 05/23/18 05/24/18 05/25/18 23:59 23:59 23:59 23:59 Intake Total 3250 1800 3072.000 2306.00 Output Total 2345 800 600 850 Balance 905 1000 2472.000 1456.00 - Objective General Appearance: positive: No acute distress, Alert Eyes Bilateral: positive: Normal inspection, PERRL, EOMI, No lid inflammation, Conjunctivae nml, No scleral icterus ENT: positive: ENT inspection nml, Pharynx nml, No signs of dehydration Neck: positive: Nml inspection, Thyroid nml, No JVD, Trachea midline. negative : Thyromegaly Respiratory: positive: Chest non-tender, No respiratory distress, Breath sounds nml. negative: Wheezes, Rales, Rhonchi Cardiovascular: positive: Regular rate & rhythm, No murmur, No gallop Abdomen: positive: Non-tender, No organomegaly, Nml bowel sounds, No distention. negative: Guarding, Rebound Back: positive: Nml inspection. negative: CVA tenderness (R), CVA tenderness (L ) Skin: positive: Color nml, No rash, Warm, Dry. negative: Cyanosis Extremities: positive: Non-tender, Full ROM, No pedal edema. negative: Nml appearance (RLE shortened and outturned) Neurologic/Psychiatric: positive: Oriented x3, CN's nml (2-12), Motor nml, Sensation nml, Mood/affect nml - Lab Results Fish Bones: 05/25/18 04:30 05/25/18 04:30 Other Labs: Lab Results x24hrs 05/25/18 05/25/18 05/25/18 Range/Units 10:19 04:30 04:30 WBC 8.7 (4.8-10.8) x10^3/uL RBC 2.83 L (4.70-6.10) 10^6/uL Hgb 8.6 L (14.0-18.0) g/dL Hct 25.1 L (42.0-52.0) % MCV 88.6 (80.0-94.0) fL MCH 30.5 (27.0-31.0) pg MCHC 34.4 (32.0-36.0) g/dL RDW 15.4 H (12.0-15.0) % Plt Count 171 (130-450) 10^3/uL MPV 7.1 L (7.4-11.4) fL Neut # (Auto) 6.4 (1.5-6.6) 10^3/uL Lymph # (Auto) 1.1 L (1.5-3.5) 10^3/uL [place] # (Auto) 0.9 (0.0-1.0) 10^3/uL Eos # (Auto) 0.2 (0.0-0.7) 10^3/uL Baso # (Auto) 0.0 (0.0-0.1) 10^3/uL Absolute Nucleated RBC 0.01 x10^3/uL Nucleated RBC % 0.1 /100WBC Sodium 129 L (135-145) mmol/L Potassium 3.6 (3.5-5.0) mmol/L Chloride 99 L (101-111) mmol/L Carbon Dioxide 27 (21-32) mmol/L Anion Gap 3.0 L (6-13) BUN 12 (6-20) mg/dL Creatinine 0.7 (0.6-1.2) mg/dL Estimated GFR (MDRD) 107 (>89) Glucose 161 H (70-100) mg/dL Calcium 7.9 L (8.5-10.3) mg/dL Blood Type B NEGATIVE Antibody Screen NEGATIVE Crossmatch IS Only See Detail - Diagnostic Imaging Diagnostic Imaging Results: positive: Final report reviewed Diagnostic Imaging Comments: EXAM: CT CERVICAL SPINE WITHOUT CONTRAST DATE: 05/21/2018 02:27 PM. HISTORY: Head inj. COMPARISONS: None. TECHNIQUE: Thin-section axial images were acquired of the cervical spine without contrast. Post-processing: Coronal and sagittal reformats. Other: None. In accordance with CT protocol optimization, one or more of the following dose reduction techniques were utilized for this exam: automated exposure control, adjustment of mA and/or KV based on patient size, or use of iterative reconstructive technique. FINDINGS: Alignment: No scoliosis or spondylolisthesis. Bones: No acute fracture. Interspace Levels/Facets: Multilevel moderate disk degeneration and mild to moderate facet arthrosis. No significant spinal canal stenosis. Musculature: Fatty atrophy. Other: Surgical material in the right neck. The lung apices are clear. IMPRESSION: No acute fracture. EXAM: [id number] CT/HEADWO (31982) Procedure Date: 05/21/2018 Accession Number: [id number] / [id number] Procedure: CT - Head W/O CPT Code: FULL RESULT: EXAM: CT HEAD EXAM DATE: 05/21/2018 02:27 PM. CLINICAL HISTORY: Head inj. COMPARISON: 03/06/2018. TECHNIQUE: Multiaxial CT images were obtained from the foramen magnum to the vertex. Reformats: Sagittal and coronal. IV contrast: None. In accordance with CT protocol optimization, one or more of the following dose reduction techniques were utilized for this exam: automated exposure control, adjustment of mA and/or KV based on patient size, or use of iterative reconstructive technique. FINDINGS: Parenchyma: No intraparenchymal hemorrhage. No evidence of mass, midline shift, or CT findings of infarction. 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 White matter disease is unchanged. Mercado-white differentiation is distinct. Extraaxial Spaces: Normal for age. No subdural or epidural collections identified. Ventricles: Normal in size and position. Sinuses and Orbits: Imaged paranasal sinuses, orbits, and mastoids show no significant abnormality. Bones: No evidence of fracture or calvarial defect. Other: None. IMPRESSION: No acute intracranial abnormality or significant change. EXAM: RIGHT HIP AND PELVIS RADIOGRAPHY EXAM DATE: 05/21/2018 02:44 PM. HISTORY: Right hip pain. COMPARISONS: None. TECHNIQUE: 1 view of the pelvis and 1 view of the hip. FINDINGS: Bones: Mildly angulated and displaced right intertrochanteric fracture is seen. The remainder osseous structures are intact. Bones are slightly osteopenic. Joints: There is mild degenerative changes seen in the hip joints, right side greater than left side. Additional degenerative changes are seen in the lower spine. Soft Tissues: Normal. No soft tissue swelling. IMPRESSION: Mildly displaced and angulated right intertrochanteric fracture. EXAM: CHEST RADIOGRAPHY EXAM DATE: 05/21/2018 02:44 PM. CLINICAL HISTORY: Acute pain due to trauma. COMPARISON: 05/11/2018. 03/06/18. TECHNIQUE: 1 view. FINDINGS: Lungs/Pleura: No focal opacities evident. No pleural effusion. No pneumothorax. Elevated right hemidiaphragm is again seen similar to prior CT. Mediastinum: Within exam limitations, the cardiomediastinal contour is normal. Other: None. IMPRESSION: No acute cardiopulmonary abnormality demonstrated. Elevated right hemidiaphragm is again seen. ABX Reporting Has patient been on IV antibiotics over the past 48 hours?: No Assessment/Plan - Problem List (1) Intertrochanteric fracture of right hip Impression: The patient's surgery is delayed until tomorrow per discretion of the orthopedic surgeon because of his prior use of Plavix. At this time his pain is appears to be well-managed when his leg is stable and there are no signs of any shortness of breath, fevers, chills, or any other new problems.A PT/INR done yesterday shows an INR of 1.4. Qualifiers: Encounter type: initial encounter Fracture type: closed Fracture alignment: displaced Qualified Code(s): S72.141A - Displaced intertrochanteric fracture of right femur, initial encounter for closed fracture (2) Failure to thrive syndrome, adult Impression: The patient had been becoming increasingly bedbound prior to fracturing his hip according to his PCP. At this time it appears that the patient will be bedbound for a minimum of 6 days before he can be up following his surgery. Because of his already debilitated state due to his prostate cancer and stroke residual, he will likely experience rapid deconditioning which he will be unlikely to recover from. He has lost a significant amount of weight due to his metastatic prostate cancer. He may eat whatever he likes and nutrition has been consulted. It might be best for him to go home with hospice services in place as he is certainly appropriate for hospice care. (3) Pain due to fracture Impression: Well-managed, especially when the leg is stable. Continue present care. (4) Controlled type 2 diabetes mellitus without complication Impression: We have the patient on a sliding scale for hyperglycemic coverage. Continue present care. 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 It is unlikely he will be able to participate in his physical therapy and will likely be discharged home with hospice care in place. He is not considered to be a candidate for any further cancer treatment at this time. (6) Hyponatremia Impression: The patient's sodium has dropped down to 129 today. I will give him salt tablets as I am afraid of putting him into congestive heart failure by giving him too many fluids. Will recheck in the morning.
[2018-05-25] MEDS: ACETAMINOPHEN 325 MG TABLET PO PRN ×2 (17:46→22:33)
[2018-05-25] MEDS ORDERED: FUROSEMIDE 20 MG/2 ML VIAL IVP PRN (20:41)
[2018-05-25] MEDS: SODIUM CHLORIDE FLUSH 0.9% 10 ML SYRINGE IVP PRN (20:52)
[2018-05-25] MEDS: ATORVASTATIN 10 MG TABLET PO SCH (20:55)
[2018-05-25] MEDS: LATANOPROST 0.005% OPHTH DROPS EACHEYE SCH (20:57)
[2018-05-26] MEDS: SODIUM CHLORIDE FLUSH 0.9% 10 ML SYRINGE IVP SCH ×4 (02:08→23:59)
[2018-05-26] MEDS: SODIUM CHLORIDE 0.9% 1,000 ML IV SCH ×3 (02:08→13:23)
[2018-05-26] MEDS: HYDROmorphone 2 MG/ML VIAL IVP PRN ×2 (02:27→12:22)
[2018-05-26 05:15] LABS: BASOPHILS % (AUTO) 0.2 %; EOSINOPHILS % (AUTO) 0.1 %; HGB - HEMOGLOBIN 10.6 g/dL (14.0-18.0); LYMPHOCYTES # (AUTO) 0.7 10^3/uL (1.5-3.5); LYMPHOCYTES % (AUTO) 9.9 %; MEAN CORPUSCULAR HEMOGLOBIN 30.3 pg (27.0-31.0); MEAN PLATELET VOLUME 7.5 fL (7.4-11.4); MONOCYTES # (AUTO) 0.5 10^3/uL (0.0-1.0); MONOCYTES % (AUTO) 6.5 %; NEUTROPHILS # (AUTO) 5.8 10^3/uL (1.5-6.6); NEUTROPHILS % (AUTO) 83.3 %; PLT - PLATELET COUNT 179 10^3/uL (130-450); RED CELL DISTRIBUTION WIDTH 14.5 % (12.0-15.0); WHITE BLOOD COUNT 6.9 x10^3/uL (4.8-10.8)
[2018-05-26 05:23] LABS: ALBUMIN 2.4 g/dL (3.2-5.5); ALBUMIN/GLOBULIN RATIO 0.6 (1.0-2.2); BILIRUBIN,TOTAL 2.1 mg/dL (0.2-1.0); CALCIUM 8.4 mg/dL (8.5-10.3); CREATININE 0.7 mg/dL (0.6-1.2); TOTAL PROTEIN 6.3 g/dL (6.7-8.2)
[2018-05-26 05:27] LABS: INR 1.3 (0.8-1.2); PT - PROTHROMBIN TIME 14.4 secs (9.9-12.6)
[2018-05-26] MEDS: HYDROCORTISONE SUCCINATE 100 MG/2 ML VIAL IVP SCH ×3 (06:03→22:07)
[2018-05-26] MEDS: CYCLOBENZAPRINE 10 MG TABLET PO PRN ×2 (06:30→18:33)
[2018-05-26] MEDS ORDERED: BUPIVACAINE 0.25%-EPI 1:200000 PF 30 ML VIAL ONE (07:10)
[2018-05-26] MEDS ORDERED: SODIUM CHLORIDE 0.9% 1,000 ML IV ONE (08:46)
[2018-05-26] MEDS ORDERED: LACTATED RINGERS 1,000 ML IV ONE (08:47)
[2018-05-26] MEDS ORDERED: ePHEDrine 50 MG/ML AMP IVP ONE (09:00)
[2018-05-26] MEDS ORDERED: fentaNYL 100 MCG/2 ML VIAL IVP ONE (09:00)
[2018-05-26] MEDS ORDERED: HYDROmorphone 1 MG/ML SYRINGE IVP ONE (09:00)
[2018-05-26] MEDS ORDERED: ACETAMINOPHEN 1,000 MG/100 ML 100 ML IV ONE (09:00)
[2018-05-26] MEDS ORDERED: ONDANSETRON 4 MG/2 ML VIAL IVP ONE (09:00)
[2018-05-26] MEDS ORDERED: PROPOFOL 200 MG/20 ML VIAL IVP ONE (09:00)
[2018-05-26] MEDS ORDERED: LIDOCAINE-MPF 2% 5 ML VIAL IM ONE (09:00)
--- NOTE | 2018-05-26 10:09 | OPERATIVE REPORT ---
Operative Report - General Admit Date: 05/21/18 Procedure Date: 05/26/18 Planned Procedure: [facility] right hip Pre-Op Diagnosis: Intertrochanteric right hip fracture Procedure Performed: [facility] right hip Post Op Diagnosis: Same - Procedure Note Primary Surgeon: Mert Anesthesia Provider: General Anesthesia Technique: General ET tube Pathology: No specimens IV Fluids (mL): 300 Estimated Blood Loss (mL): 450 Urine Output (mL): 100 Complications: None - Other Other Information/Narrative: The patient was taken to the OR and general anesthesia was induced. He was then moved to the fracture table and positioned with longitudinal traction on the right leg. Intraoperative flouro was used to assess the fracture fragments and they were deemed to be in satisfactory position. His hip and leg on the right were prepped and draped in the usual sterile fashion. An incision was made over the greater trochanter and the dissection was carried down to the subcutaneous tissue. A guide pin was inserted from the greater trochanter down the femoral shaft. The position was checked with the flouro and it was satisfactory. The reamer was used to get a starting portal over the greater trochanter. A ball tipped guide steve was inserted down the femoral canal. The larger reamer was used to ream the proximal femur. Then the reamers were used sequentially and the femoral canal was reamed. The guide steve was used to measure the length of the femoral canal with the depth gauge. The nail was selected and inserted using manual techniques. The guide steve was removed. The guide pin was inserted using the guide on both ap and lateral views up into the patient's femoral head. This was measured and reamed. A screw was inserted into the femoral head and visualized on ap and lateral views. The locking screw was placed into the nail and tightened. The wounds were irrigated out with copious amounts of normal saline and then closed in layers. The skin was closed with skin clips. Because the patient has been on plavix, we transfused one unit of packed cells at the end of the procedure. No complications.
[2018-05-26] MEDS ORDERED: ACETAMINOPHEN 1,000 MG/100 ML 100 ML IV PRN (10:23)
[2018-05-26] MEDS ORDERED: PROCHLORPERAZINE 10 MG/2 ML VIAL IVP PRN (10:23)
[2018-05-26] MEDS: HYDROmorphone 1 MG/ML CARPUJECT ONE ×3 (10:26→11:08)
[2018-05-26] MEDS ORDERED: ROPIVACAINE 0.2% PF 20 ML AMPULE ONE ×2 (10:28→10:29)
--- NOTE | 2018-05-26 10:31 | POST OP PROGRESS NOTE ---
Subjective - General Admit Date: 05/21/18 Procedure Date: 05/26/18 Post Op Days: 0 Procedure Performed: [facility] right hip - Review of Systems Wound/Incisions: positive: No drainage Drain Type: No drain General: positive: No symptoms HEENT: positive: No symptoms Pulmonary: positive: Sputum Cardiovascular: positive: No symptoms Gastrointestinal: positive: No symptoms Genitourinary: positive: Other Musculoskeletal: positive: Leg pain Psychiatric: positive: No symptoms Surgery Impression Plan - Problem List (1) Intertrochanteric fracture of right hip Qualifiers: Encounter type: initial encounter Fracture type: closed Fracture alignment: displaced Qualified Code(s): S72.141A - Displaced intertrochanteric fracture of right femur, initial encounter for closed fracture
[2018-05-26] MEDS: LORATADINE 10 MG TABLET PO SCH (12:05)
[2018-05-26] MEDS: ALLOPURINOL 100 MG TABLET PO SCH (12:05)
[2018-05-26] MEDS: SODIUM CHLORIDE 1 GM TABLET PO SCH ×2 (12:05→17:18)
[2018-05-26] MEDS: POLYETHYLENE GLYCOL 3350 17 GM PACKET PO SCH (12:06)
[2018-05-26] MEDS: ESCITALOPRAM 10 MG TABLET PO SCH (12:06)
--- NOTE | 2018-05-26 12:36 | PROVIDER PROGRESS NOTE ---
Subjective - Prog Note Date Prog Note Date: 05/26/18 Prog Note Time: 11:45 - Subjective Subjective: The patient had surgery today to fix his broken hip. At this time his pain is well managed, he is breathing easily on 2 l/m oxygen, he is afebrile and appears comfortable. Current Medications - Current Medications Current Medications: Active Medications Generic Name Dose Route Start Last Admin Trade Name Freq PRN Reason Stop Dose Admin Acetaminophen 650 - 975 mg 05/26/18 10:23 Tylenol PO Q4HR PRN PAIN Allopurinol 150 mg 05/26/18 12:00 05/26/18 12:05 Zyloprim PO 150 mg DAILY AMI Administration Atorvastatin Calcium 20 mg 05/21/18 21:00 05/25/18 20:55 Lipitor PO 20 mg QPM AMI Administration Cyclobenzaprine HCl 10 mg 05/24/18 11:17 05/26/18 06:30 Flexeril PO 10 mg TID PRN Administration Spasms Diphenhydramine HCl 25 mg 05/25/18 12:57 Benadryl PO Q4HR PRN Allergy Symptoms Escitalopram Oxalate 10 mg 05/26/18 12:00 05/26/18 12:06 Lexapro PO 10 mg DAILY AMI Administration Hydrocortisone Sodium Succinate 100 mg 05/25/18 13:00 05/26/18 06:03 Solu-Cortef IVP 100 mg TID AMI Administration Hydromorphone HCl 2 mg 05/22/18 08:26 05/26/18 12:22 Dilaudid (Vial) IVP 2 mg Q2H PRN Administration PAIN Sodium Chloride 1,000 mls @ 0 mls/hr 05/25/18 13:00 05/26/18 11:54 Normal Saline 0.9% IV 30 mls/hr .Q0M AMI Administration TKO Cefazolin Sodium/Dextrose 2 gm in 50 mls @ 100 mls/hr 05/26/18 16:00 Ancef 2 Gm/50 Ml IV 05/27/18 00:29 Q8H AMI Acetaminophen 100 mls @ 400 mls/hr 05/26/18 10:23 Ofirmev IV Q6HR PRN PAIN Latanoprost 1 drops 05/21/18 21:00 05/25/18 20:57 Xalatan Ophth Drops EACHEYE 1 drops QPM AMI Administration Loperamide HCl 2 mg 05/21/18 15:29 Imodium PO DAILY PRN Diarrhea Loratadine 10 mg 05/26/18 12:00 05/26/18 12:05 Claritin PO 10 mg DAILY AMI Administration Morphine Sulfate 2 mg 05/21/18 15:15 05/24/18 00:53 Morphine IVP 2 mg Q2H PRN Administration PAIN Polyethylene Glycol 17 gm 05/22/18 09:00 05/26/18 12:06 Miralax PO Not Given DAILY [facility] Prochlorperazine Edisylate 10 mg 05/26/18 10:23 Compazine Inj IVP Q6HR PRN Nausea / Vomiting Sodium Chloride 10 ml 05/26/18 17:00 05/26/18 12:23 Normal Saline Flush 0.9% IVP 10 ml 0100,0900,1700 AMI Administration Sodium Chloride 10 ml 05/26/18 10:23 Normal Saline Flush 0.9% IVP PRN PRN NEEDED PER PROVIDER ORDERS Sodium Chloride 1 gm 05/26/18 12:00 05/26/18 12:05 Salt Tab PO 1 gm BIDWM AMI Administration Tramadol HCl 50 mg 05/21/18 15:29 05/25/18 22:34 Ultram PO 50 mg Q6H PRN Administration PAIN Clopidogrel [Plavix] 75 mg PO DAILY 07/05/17 Latanoprost 0.005% Ophth Drops [Xalatan Ophth Drops] 1 drops EACHEYE QPM Allopurinol 150 mg PO DAILY 09/06/17 Loperamide HCl [Anti-Diarrheal] 2 mg PO Q2H PRN 09/06/17 Multivitamin [Multivitamins] 1 tab PO DAILY 09/06/17 Atorvastatin Calcium 20 mg PO QPM 05/22/18 Cholecalciferol (Vitamin D3) [Vitamin D] 2,000 unit PO DAILY 05/22/18 Escitalopram Oxalate [Lexapro] 20 mg PO DAILY 05/22/18 Loratadine [Claritin] 10 mg PO DAILY PRN 05/22/18 Objective - Vital Signs/Intake & Output Reviewed Vital Signs: Yes Vital Signs: Vital Signs x48h Temp Pulse Resp BP BP Pulse Ox 05/26/18 12:10 36.4 C L 94 16 109/61 95 05/26/18 11:40 36.6 C 97 16 103/61 92 05/26/18 11:30 36.8 C 16 113/67 94 05/26/18 11:20 36.8 C 16 121/63 94 05/26/18 11:10 37 C 14 124/84 H 94 05/26/18 11:00 37 C 14 118/64 94 05/26/18 10:50 16 118/61 96 05/26/18 10:40 37 C 16 131/66 H 95 05/26/18 10:30 37 C 16 132/75 H 96 05/26/18 10:25 16 130/71 96 05/26/18 10:20 16 137/76 H 97 05/26/18 10:15 37.4 C 18 144/80 H 97 05/26/18 10:10 20 148/98 H 97 05/26/18 10:08 22 147/81 H 98 05/26/18 10:03 37.6 C H 22 147/81 H 100 Intake & Output: Intake & Output 05/23/18 05/24/18 05/25/18 05/26/18 23:59 23:59 23:59 23:59 Intake Total 1800 3072.000 3271.00 1693.917 Output Total 836 289 5467 550 Balance 1000 2472.000 1221.00 1143.917 - Objective General Appearance: positive: No acute distress, Alert Eyes Bilateral: positive: Normal inspection, PERRL, EOMI, No lid inflammation, Conjunctivae nml, No scleral icterus ENT: positive: ENT inspection nml, Pharynx nml, No signs of dehydration Neck: positive: Nml inspection, Thyroid nml, No JVD, Trachea midline. negative : Thyromegaly Respiratory: positive: Chest non-tender, No respiratory distress, Breath sounds nml. negative: Wheezes, Rales, Rhonchi Cardiovascular: positive: Regular rate & rhythm, No murmur, No gallop Abdomen: positive: Non-tender, No organomegaly, Nml bowel sounds, No distention. negative: Guarding, Rebound Back: positive: Nml inspection. negative: CVA tenderness (R), CVA tenderness (L ) Skin: positive: Color nml, No rash, Warm, Dry. negative: Cyanosis Extremities: positive: Non-tender, Full ROM, Nml appearance, No pedal edema Neurologic/Psychiatric: positive: Oriented x3, CN's nml (2-12), Motor nml, Sensation nml, Mood/affect nml - Lab Results Fish Bones: 05/26/18 04:50 05/26/18 04:50 Other Labs: Lab Results x24hrs 05/26/18 05/26/18 05/26/18 Range/Units 04:50 04:50 04:50 WBC 6.9 (4.8-10.8) x10^3/uL RBC 3.50 L (4.70-6.10) 10^6/uL Hgb 10.6 L (14.0-18.0) g/dL Hct 31.1 L (42.0-52.0) % MCV 89.0 (80.0-94.0) fL MCH 30.3 (27.0-31.0) pg MCHC 34.0 (32.0-36.0) g/dL RDW 14.5 (12.0-15.0) % Plt Count 179 (130-450) 10^3/uL MPV 7.5 (7.4-11.4) fL Neut # (Auto) 5.8 (1.5-6.6) 10^3/uL Lymph # (Auto) 0.7 L (1.5-3.5) 10^3/uL [place] # (Auto) 0.5 (0.0-1.0) 10^3/uL Eos # (Auto) 0.0 (0.0-0.7) 10^3/uL Baso # (Auto) 0.0 (0.0-0.1) 10^3/uL Absolute Nucleated RBC 0.00 x10^3/uL Nucleated RBC % 0.0 /100WBC PT 14.4 H (9.9-12.6) secs INR 1.3 H (0.8-1.2) Sodium 135 (135-145) mmol/L Potassium 4.2 (3.5-5.0) mmol/L Chloride 100 L (101-111) mmol/L Carbon Dioxide 29 (21-32) mmol/L Anion Gap 6.0 (6-13) BUN 14 (6-20) mg/dL Creatinine 0.7 (0.6-1.2) mg/dL Estimated GFR (MDRD) 107 (>89) Glucose 221 H (70-100) mg/dL Calcium 8.4 L (8.5-10.3) mg/dL Total Bilirubin 2.1 H (0.2-1.0) mg/dL AST 38 (10-42) IU/L ALT 37 (10-60) IU/L Alkaline Phosphatase 86 (42-121) IU/L Total Protein 6.3 L (6.7-8.2) g/dL Albumin 2.4 L (3.2-5.5) g/dL Globulin 3.9 (2.1-4.2) g/dL Albumin/Globulin Ratio 0.6 L (1.0-2.2) Blood Type Antibody Screen Crossmatch IS Only 05/25/18 05/25/18 Range/Units 13:19 10:19 WBC (4.8-10.8) x10^3/uL RBC (4.70-6.10) 10^6/uL Hgb (14.0-18.0) g/dL Hct (42.0-52.0) % MCV (80.0-94.0) fL MCH (27.0-31.0) pg MCHC (32.0-36.0) g/dL RDW (12.0-15.0) % Plt Count (130-450) 10^3/uL MPV (7.4-11.4) fL Neut # (Auto) (1.5-6.6) 10^3/uL Lymph # (Auto) (1.5-3.5) 10^3/uL [place] # (Auto) (0.0-1.0) 10^3/uL Eos # (Auto) (0.0-0.7) 10^3/uL Baso # (Auto) (0.0-0.1) 10^3/uL Absolute Nucleated RBC x10^3/uL Nucleated RBC % /100WBC PT (9.9-12.6) secs INR (0.8-1.2) Sodium (135-145) mmol/L Potassium (3.5-5.0) mmol/L Chloride (101-111) mmol/L Carbon Dioxide (21-32) mmol/L Anion Gap (6-13) BUN (6-20) mg/dL Creatinine (0.6-1.2) mg/dL Estimated GFR (MDRD) (>89) Glucose (70-100) mg/dL Calcium (8.5-10.3) mg/dL Total Bilirubin (0.2-1.0) mg/dL AST (10-42) IU/L ALT (10-60) IU/L Alkaline Phosphatase (42-121) IU/L Total Protein (6.7-8.2) g/dL Albumin (3.2-5.5) g/dL Globulin (2.1-4.2) g/dL Albumin/Globulin Ratio (1.0-2.2) Blood Type Cancelled B NEGATIVE Antibody Screen Cancelled NEGATIVE Crossmatch IS Only See Detail See Detail ABX Reporting Has patient been on IV antibiotics over the past 48 hours?: No Assessment/Plan - Problem List (1) Intertrochanteric fracture of right hip Impression: This was surgically repaired by Dr. Painting earlier today. The patient is doing well postop, his vital signs are stable, and his oxygen saturation is good. He has good distal circulation to his toes. Postoperative orders and rehab are per surgery. Qualifiers: Encounter type: initial encounter Fracture type: closed Fracture alignment: displaced Qualified Code(s): S72.141A - Displaced intertrochanteric fracture of right femur, initial encounter for closed fracture (2) Failure to thrive syndrome, adult Impression: The patient had been becoming increasingly bedbound prior to fracturing his hip according to his PCP. At this time it appears that the patient will be bedbound for a minimum of 6 days before he can be up following his surgery. Because of his already debilitated state due to his prostate cancer and stroke residual, he will likely experience rapid deconditioning which he will be unlikely to recover from. He has lost a significant amount of weight due to his metastatic prostate cancer. He may eat whatever he likes and nutrition has been consulted. It might be best for him to go home with hospice services in place as he is certainly appropriate for hospice care. (3) Pain due to fracture Impression: Well-managed, no acute signs of pain. (4) Controlled type 2 diabetes mellitus without complication Impression: We have the patient on a sliding scale for hyperglycemic coverage. Continue present care. 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 It is unlikely he will be able to participate in his physical therapy and will likely be discharged home with hospice care in place. He is not considered to be a candidate for any further cancer treatment at this time. (6) Hyponatremia Impression: Corrected, K 3.5 today.
[2018-05-26] MEDS: traMADol 50 MG TABLET PO PRN ×2 (13:38→22:07)
--- NOTE | 2018-05-26 16:45 | XRAY Report ---
Procedure Date: 05/26/2018 Accession Number: [id number] / [id number] Procedure: [place] - OR C-Arm Procedure CPT Code: FULL RESULT: EXAM: OR C-Arm Procedure DATE: 05/26/2018 9:54 AM CLINICAL HISTORY: fracture rt hip COMPARISON: None. Findings/impression: No images are submitted. Fluoroscopy time of 1 minute and 5 seconds is reported from the operating room. RADIA
[2018-05-26] MEDS: ceFAZolin 2 GM/50 ML 2 GM/50 ML BAG IV SCH ×2 (17:05→23:58)
[2018-05-26] MEDS: ACETAMINOPHEN 325 MG TABLET PO PRN (17:17)
[2018-05-26] MEDS: ATORVASTATIN 10 MG TABLET PO SCH (22:07)
[2018-05-26] MEDS: LATANOPROST 0.005% OPHTH DROPS EACHEYE SCH (22:08)
[2018-05-27] MEDS: HYDROCORTISONE SUCCINATE 100 MG/2 ML VIAL IVP SCH ×3 (05:43→23:07)
[2018-05-27] MEDS: SODIUM CHLORIDE FLUSH 0.9% 10 ML SYRINGE IVP PRN (05:43)
[2018-05-27] MEDS: traMADol 50 MG TABLET PO PRN (05:43)
[2018-05-27 06:21] LABS: BASOPHILS % (AUTO) 0.1 %; HGB - HEMOGLOBIN 9.7 g/dL (14.0-18.0); LYMPHOCYTES # (AUTO) 0.6 10^3/uL (1.5-3.5); LYMPHOCYTES % (AUTO) 8.5 %; MEAN CORPUSCULAR HEMOGLOBIN 30.5 pg (27.0-31.0); MEAN CORPUSCULAR HGB CONC 34.7 g/dL (32.0-36.0); MEAN PLATELET VOLUME 7.2 fL (7.4-11.4); MONOCYTES # (AUTO) 0.5 10^3/uL (0.0-1.0); MONOCYTES % (AUTO) 6.7 %; NEUTROPHILS # (AUTO) 6.4 10^3/uL (1.5-6.6); NEUTROPHILS % (AUTO) 84.7 %; PLT - PLATELET COUNT 182 10^3/uL (130-450); RED BLOOD COUNT 3.19 10^6/uL (4.70-6.10); RED CELL DISTRIBUTION WIDTH 14.7 % (12.0-15.0); WHITE BLOOD COUNT 7.5 x10^3/uL (4.8-10.8)
[2018-05-27 06:33] LABS: ALBUMIN 2.2 g/dL (3.2-5.5); ALBUMIN/GLOBULIN RATIO 0.7 (1.0-2.2); BILIRUBIN,TOTAL 1.5 mg/dL (0.2-1.0); CALCIUM 8.2 mg/dL (8.5-10.3); CREATININE 0.6 mg/dL (0.6-1.2); TOTAL PROTEIN 5.4 g/dL (6.7-8.2)
[2018-05-27] MEDS: SODIUM CHLORIDE FLUSH 0.9% 10 ML SYRINGE IVP SCH ×2 (08:30→17:15)
[2018-05-27] MEDS: POLYETHYLENE GLYCOL 3350 17 GM PACKET PO SCH (08:30)
[2018-05-27] MEDS: LORATADINE 10 MG TABLET PO SCH (08:30)
[2018-05-27] MEDS: ALLOPURINOL 100 MG TABLET PO SCH (08:30)
[2018-05-27] MEDS: ESCITALOPRAM 10 MG TABLET PO SCH (08:31)
[2018-05-27] MEDS: SODIUM CHLORIDE 1 GM TABLET PO SCH ×2 (08:31→17:14)
[2018-05-27] MEDS: HYDROmorphone 2 MG/ML VIAL IVP PRN ×2 (11:35→17:08)
--- NOTE | 2018-05-27 12:50 | PROVIDER PROGRESS NOTE ---
Subjective - Prog Note Date Prog Note Date: 05/27/18 Prog Note Time: 11:00 - Subjective Pt reports feeling: Improved Subjective: Patient says he feels better. He still has stabbing pains every so often but these are very quickly self relieving. He is on Flexeril and this does affect his ability to speak. He is eating and moving his bowels, he is not short of breath and denies any fevers or chills. Current Medications - Current Medications Current Medications: Active Medications Generic Name Dose Route Start Last Admin Trade Name Freq PRN Reason Stop Dose Admin Acetaminophen 650 - 975 mg 05/26/18 10:23 05/26/18 17:17 Tylenol PO 650 mg Q4HR PRN Administration PAIN Allopurinol 150 mg 05/26/18 12:00 05/27/18 08:30 Zyloprim PO 150 mg DAILY AMI Administration Atorvastatin Calcium 20 mg 05/21/18 21:00 05/26/18 22:07 Lipitor PO 20 mg QPM AMI Administration Cyclobenzaprine HCl 10 mg 05/24/18 11:17 05/26/18 18:33 Flexeril PO 10 mg TID PRN Administration Spasms Diphenhydramine HCl 25 mg 05/25/18 12:57 Benadryl PO Q4HR PRN Allergy Symptoms Escitalopram Oxalate 10 mg 05/26/18 12:00 05/27/18 08:31 Lexapro PO 10 mg DAILY AMI Administration Hydrocortisone Sodium Succinate 100 mg 05/25/18 13:00 05/27/18 05:43 Solu-Cortef IVP 100 mg TID AMI Administration Hydromorphone HCl 2 mg 05/22/18 08:26 05/27/18 11:35 Dilaudid (Vial) IVP 2 mg Q2H PRN Administration PAIN Sodium Chloride 1,000 mls @ 0 mls/hr 05/25/18 13:00 05/26/18 13:23 Normal Saline 0.9% IV 30 mls/hr .Q0M AMI Administration TKO Acetaminophen 100 mls @ 400 mls/hr 05/26/18 10:23 Ofirmev IV Q6HR PRN PAIN Latanoprost 1 drops 05/21/18 21:00 05/26/18 22:08 Xalatan Ophth Drops EACHEYE 1 drops QPM AMI Administration Loperamide HCl 2 mg 05/21/18 15:29 Imodium PO DAILY PRN Diarrhea Loratadine 10 mg 05/26/18 12:00 05/27/18 08:30 Claritin PO 10 mg DAILY AMI Administration Morphine Sulfate 2 mg 05/21/18 15:15 05/24/18 00:53 Morphine IVP 2 mg Q2H PRN Administration PAIN Polyethylene Glycol 17 gm 05/22/18 09:00 05/27/18 08:30 Miralax PO 17 gm DAILY AMI Administration Prochlorperazine Edisylate 10 mg 05/26/18 10:23 Compazine Inj IVP Q6HR PRN Nausea / Vomiting Sodium Chloride 10 ml 05/26/18 17:00 05/27/18 08:30 Normal Saline Flush 0.9% IVP 10 ml 0100,0900,1700 AMI Administration Sodium Chloride 10 ml 05/26/18 10:23 05/27/18 05:43 Normal Saline Flush 0.9% IVP 10 ml PRN PRN Administration NEEDED PER PROVIDER ORDERS Sodium Chloride 1 gm 05/26/18 12:00 05/27/18 08:31 Salt Tab PO 1 gm BIDWM AMI Administration Tramadol HCl 50 mg 05/21/18 15:29 05/27/18 05:43 Ultram PO 50 mg Q6H PRN Administration PAIN Clopidogrel [Plavix] 75 mg PO DAILY 07/05/17 Latanoprost 0.005% Ophth Drops [Xalatan Ophth Drops] 1 drops EACHEYE QPM Allopurinol 150 mg PO DAILY 09/06/17 Loperamide HCl [Anti-Diarrheal] 2 mg PO Q2H PRN 09/06/17 Multivitamin [Multivitamins] 1 tab PO DAILY 09/06/17 Atorvastatin Calcium 20 mg PO QPM 05/22/18 Cholecalciferol (Vitamin D3) [Vitamin D] 2,000 unit PO DAILY 05/22/18 Escitalopram Oxalate [Lexapro] 20 mg PO DAILY 05/22/18 Loratadine [Claritin] 10 mg PO DAILY PRN 05/22/18 Objective - Vital Signs/Intake & Output Reviewed Vital Signs: Yes Vital Signs: Vital Signs x48h Temp Pulse Resp BP Pulse Ox 05/27/18 07:57 36.6 C 91 16 116/64 93 05/27/18 04:40 36.4 C L 96 16 125/76 99 Intake & Output: Intake & Output 05/24/18 05/25/18 05/26/18 05/27/18 23:59 23:59 23:59 23:59 Intake Total 3072.000 3271.00 3375.417 1100 Output Total 600 2050 1525 1600 Balance 2472.000 1221.00 1850.417 -500 - Objective General Appearance: positive: No acute distress, Alert Eyes Bilateral: positive: Normal inspection, PERRL, EOMI, No lid inflammation, Conjunctivae nml, No scleral icterus ENT: positive: ENT inspection nml, Pharynx nml, No signs of dehydration Neck: positive: Nml inspection, Thyroid nml, No JVD, Trachea midline. negative : Thyromegaly Respiratory: positive: Chest non-tender, No respiratory distress, Breath sounds nml. negative: Wheezes, Rales, Rhonchi Cardiovascular: positive: Regular rate & rhythm, No murmur, No gallop Abdomen: positive: Non-tender, No organomegaly, Nml bowel sounds, No distention. negative: Guarding, Rebound Back: positive: Nml inspection. negative: CVA tenderness (R), CVA tenderness (L ) Skin: positive: Color nml, No rash, Warm, Dry. negative: Cyanosis Extremities: positive: No pedal edema, Other (Patient is status post right intertrochanteric fracture repair, postop day 1.). negative: Non-tender, Full ROM, Nml appearance Neurologic/Psychiatric: positive: Oriented x3, CN's nml (2-12), Motor nml, Sensation nml, Mood/affect nml - Lab Results Fish Bones: 05/27/18 05:40 05/27/18 05:40 Other Labs: Lab Results x24hrs 05/27/18 05/27/18 Range/Units 05:40 05:40 WBC 7.5 (4.8-10.8) x10^3/uL RBC 3.19 L (4.70-6.10) 10^6/uL Hgb 9.7 L (14.0-18.0) g/dL Hct 28.1 L (42.0-52.0) % MCV 88.0 (80.0-94.0) fL MCH 30.5 (27.0-31.0) pg MCHC 34.7 (32.0-36.0) g/dL RDW 14.7 (12.0-15.0) % Plt Count 182 (130-450) 10^3/uL MPV 7.2 L (7.4-11.4) fL Neut # (Auto) 6.4 (1.5-6.6) 10^3/uL Lymph # (Auto) 0.6 L (1.5-3.5) 10^3/uL [place] # (Auto) 0.5 (0.0-1.0) 10^3/uL Eos # (Auto) 0.0 (0.0-0.7) 10^3/uL Baso # (Auto) 0.0 (0.0-0.1) 10^3/uL Absolute Nucleated RBC 0.00 x10^3/uL Nucleated RBC % 0.1 /100WBC Sodium 137 (135-145) mmol/L Potassium 3.7 (3.5-5.0) mmol/L Chloride 103 (101-111) mmol/L Carbon Dioxide 28 (21-32) mmol/L Anion Gap 6.0 (6-13) BUN 16 (6-20) mg/dL Creatinine 0.6 (0.6-1.2) mg/dL Estimated GFR (MDRD) 128 (>89) Glucose 194 H (70-100) mg/dL Calcium 8.2 L (8.5-10.3) mg/dL Total Bilirubin 1.5 H (0.2-1.0) mg/dL AST 33 (10-42) IU/L ALT 32 (10-60) IU/L Alkaline Phosphatase 71 (42-121) IU/L Total Protein 5.4 L (6.7-8.2) g/dL Albumin 2.2 L (3.2-5.5) g/dL Globulin 3.2 (2.1-4.2) g/dL Albumin/Globulin Ratio 0.7 L (1.0-2.2) ABX Reporting Has patient been on IV antibiotics over the past 48 hours?: Yes Assessment/Plan - Problem List (1) Intertrochanteric fracture of right hip Impression: The patient's right intertrochanteric fracture was repaired by Dr. Painting yesterday. He is having occasional twinges of pain but otherwise his hip pain is well-managed at this time. The patient has good circulation to his distal toes. PT and discharge per surgery. Qualifiers: Encounter type: initial encounter Fracture type: closed Fracture alignment: displaced Qualified Code(s): S72.141A - Displaced intertrochanteric fracture of right femur, initial encounter for closed fracture (2) Failure to thrive syndrome, adult Impression: The patient had been becoming increasingly bedbound prior to fracturing his hip according to his PCP. At this time it appears that the patient will be bedbound for a minimum of 6 days before he can be up following his surgery. Because of his already debilitated state due to his prostate cancer and stroke residual, he will likely experience rapid deconditioning which he will be unlikely to recover from. He has lost a significant amount of weight due to his metastatic prostate cancer. He may eat whatever he likes and nutrition has been consulted. It might be best for him to go home with hospice services in place as he is certainly appropriate for hospice care. (3) Pain due to fracture Impression: Improved, resolving. POD #1 (4) Controlled type 2 diabetes mellitus without complication Impression: We have the patient on an insulin sliding scale for hyperglycemic coverage. His blood sugars have been well managed. Continue present care. 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 It is unlikely he will be able to participate in his physical therapy and will likely be discharged home with hospice care in place. He is not considered to be a candidate for any further cancer treatment at this time. (6) Hyponatremia Impression: Corrected, the potassium level was 3.7 today
--- NOTE | 2018-05-27 18:21 | PROVIDER PROGRESS NOTE ---
Subjective - Prog Note Date Prog Note Date: 05/27/18 Prog Note Time: 06:20 - Subjective Pt reports feeling: Improved (Still a little confused) Objective - Vital Signs/Intake & Output Vital Signs: Vital Signs x48h Temp Pulse Pulse BP BP Pulse Ox Pulse Ox 05/27/18 16:55 36.6 C 104 H 117/67 91 L 05/27/18 12:56 68 114/54 L 95 Intake & Output: Intake & Output 05/24/18 05/25/18 05/26/18 05/27/18 23:59 23:59 23:59 23:59 Intake Total 3072.000 3271.00 3375.417 1450 Output Total 600 2050 1525 1950 Balance 2472.000 1221.00 1850.417 -500 - Objective General Appearance: positive: No acute distress Extremities: positive: Other (Limb lengths equal. Still has large subcutaneous hematoma from fall and plavix) - Lab Results Fish Bones: 05/27/18 05:40 05/27/18 05:40 Other Labs: Lab Results x24hrs 05/27/18 05/27/18 Range/Units 05:40 05:40 WBC 7.5 (4.8-10.8) x10^3/uL RBC 3.19 L (4.70-6.10) 10^6/uL Hgb 9.7 L (14.0-18.0) g/dL Hct 28.1 L (42.0-52.0) % MCV 88.0 (80.0-94.0) fL MCH 30.5 (27.0-31.0) pg MCHC 34.7 (32.0-36.0) g/dL RDW 14.7 (12.0-15.0) % Plt Count 182 (130-450) 10^3/uL MPV 7.2 L (7.4-11.4) fL Neut # (Auto) 6.4 (1.5-6.6) 10^3/uL Lymph # (Auto) 0.6 L (1.5-3.5) 10^3/uL [place] # (Auto) 0.5 (0.0-1.0) 10^3/uL Eos # (Auto) 0.0 (0.0-0.7) 10^3/uL Baso # (Auto) 0.0 (0.0-0.1) 10^3/uL Absolute Nucleated RBC 0.00 x10^3/uL Nucleated RBC % 0.1 /100WBC Sodium 137 (135-145) mmol/L Potassium 3.7 (3.5-5.0) mmol/L Chloride 103 (101-111) mmol/L Carbon Dioxide 28 (21-32) mmol/L Anion Gap 6.0 (6-13) BUN 16 (6-20) mg/dL Creatinine 0.6 (0.6-1.2) mg/dL Estimated GFR (MDRD) 128 (>89) Glucose 194 H (70-100) mg/dL Calcium 8.2 L (8.5-10.3) mg/dL Total Bilirubin 1.5 H (0.2-1.0) mg/dL AST 33 (10-42) IU/L ALT 32 (10-60) IU/L Alkaline Phosphatase 71 (42-121) IU/L Total Protein 5.4 L (6.7-8.2) g/dL Albumin 2.2 L (3.2-5.5) g/dL Globulin 3.2 (2.1-4.2) g/dL Albumin/Globulin Ratio 0.7 L (1.0-2.2) Assessment/Plan - Problem List (1) Intertrochanteric fracture of right hip Impression: Right leg fixed. Await placement. Qualifiers: Encounter type: initial encounter Fracture type: closed Fracture alignment: displaced Qualified Code(s): S72.141A - Displaced intertrochanteric fracture of right femur, initial encounter for closed fracture
[2018-05-27] MEDS: SODIUM CHLORIDE 0.9% 1,000 ML IV SCH (19:08)
[2018-05-27] MEDS: LATANOPROST 0.005% OPHTH DROPS EACHEYE SCH (21:45)
[2018-05-27] MEDS: ATORVASTATIN 10 MG TABLET PO SCH (23:06)
[2018-05-28] MEDS: traMADol 50 MG TABLET PO PRN (04:33)
[2018-05-28] MEDS: SODIUM CHLORIDE FLUSH 0.9% 10 ML SYRINGE IVP SCH ×4 (04:36→23:36)
[2018-05-28] MEDS: HYDROCORTISONE SUCCINATE 100 MG/2 ML VIAL IVP SCH ×3 (05:14→21:35)
[2018-05-28] MEDS: SODIUM CHLORIDE FLUSH 0.9% 10 ML SYRINGE IVP PRN (05:15)
[2018-05-28 06:28] LABS: BASOPHILS % (AUTO) 0.1 %
[2018-05-28 06:40] LABS: HGB - HEMOGLOBIN 9.2 g/dL (14.0-18.0); MEAN CORPUSCULAR HEMOGLOBIN 30.1 pg (27.0-31.0); MEAN CORPUSCULAR HGB CONC 34.2 g/dL (32.0-36.0); MEAN CORPUSCULAR VOLUME 88.1 fL (80.0-94.0); MEAN PLATELET VOLUME 7.4 fL (7.4-11.4); NEUTROPHILS % (AUTO) 83.9 %; PLT - PLATELET COUNT 180 10^3/uL (130-450); RED BLOOD COUNT 3.05 10^6/uL (4.70-6.10); RED CELL DISTRIBUTION WIDTH 14.5 % (12.0-15.0); WHITE BLOOD COUNT 7.1 x10^3/uL (4.8-10.8)
[2018-05-28 06:54] LABS: ABNORMAL LYMPHS % (MANUAL) 0 %
[2018-05-28 06:58] LABS: ALBUMIN 2.1 g/dL (3.2-5.5); ALBUMIN/GLOBULIN RATIO 0.6 (1.0-2.2); BILIRUBIN,TOTAL 1.7 mg/dL (0.2-1.0); CALCIUM 7.9 mg/dL (8.5-10.3); CREATININE 0.7 mg/dL (0.6-1.2); TOTAL PROTEIN 5.5 g/dL (6.7-8.2)
[2018-05-28 07:09] LABS: BAND NEUTROPHILS % (MANUAL) 1 %; DIFFERENTIAL COMMENT MANUAL DIFFERENTIAL; LYMPHOCYTES # (MANUAL) 0.6 10^3/uL (1.5-3.5); LYMPHOCYTES % (MANUAL) 9 %; METAMYELOCYTES % (MANUAL) 1 %; MONOCYTES # (MANUAL) 0.3 10^3/uL (0.0-1.0); NEUTROPHILS # (MANUAL) 6.1 10^3/uL (1.5-6.6); NEUTROPHILS % (MANUAL) 85 %; PLATELET ESTIMATE, MANUAL NORMAL (130-450,000) (NORMAL); PLATELET MORPHOLOGY NORMAL APPEARANCE (NORMAL); RBC MORPHOLOGY (MULTIPLE) NORMAL APPEARANCE (NORMAL)
[2018-05-28] MEDS: LORATADINE 10 MG TABLET PO SCH (09:36)
[2018-05-28] MEDS: ALLOPURINOL 100 MG TABLET PO SCH (09:36)
[2018-05-28] MEDS: ESCITALOPRAM 10 MG TABLET PO SCH (09:36)
[2018-05-28] MEDS: POLYETHYLENE GLYCOL 3350 17 GM PACKET PO SCH (09:43)
[2018-05-28] MEDS: SODIUM CHLORIDE 1 GM TABLET PO SCH ×2 (09:43→16:41)
--- NOTE | 2018-05-28 12:45 | PROVIDER PROGRESS NOTE ---
Subjective - Prog Note Date Prog Note Date: 05/28/18 - Subjective Pt reports feeling: Improved Objective - Vital Signs/Intake & Output Vital Signs: Vital Signs x48h Temp Pulse Resp BP Pulse Ox 05/28/18 08:00 36.6 C 101 H 18 128/65 95 Intake & Output: Intake & Output 05/25/18 05/26/18 05/27/18 05/28/18 23:59 23:59 23:59 23:59 Intake Total 3271.00 3375.417 2642.5 460 Output Total 2050 1525 2250 750 Balance 1221.00 1850.417 392.5 -290 - Objective Extremities: positive: Other (Moderate amount of swelling in right leg. Sympathetic effusion present. Toes up and down. Limb is warm.) - Lab Results Fish Bones: 05/28/18 06:07 05/28/18 06:07 Other Labs: Lab Results x24hrs 05/28/18 05/28/18 Range/Units 06:07 06:07 WBC 7.1 (4.8-10.8) x10^3/uL RBC 3.05 L (4.70-6.10) 10^6/uL Hgb 9.2 L (14.0-18.0) g/dL Hct 26.9 L (42.0-52.0) % MCV 88.1 (80.0-94.0) fL MCH 30.1 (27.0-31.0) pg MCHC 34.2 (32.0-36.0) g/dL RDW 14.5 (12.0-15.0) % Plt Count 180 (130-450) 10^3/uL MPV 7.4 (7.4-11.4) fL Neut # (Auto) Not Reportable Lymph # (Auto) Not Reportable [place] # (Auto) Not Reportable Eos # (Auto) Not Reportable Baso # (Auto) Not Reportable Absolute Nucleated RBC Not Reportable Total Counted 100 Band Neuts % (Manual) 1 (0 - 10) % Abnorm Lymph % (Manual) 0 % Metamyelocytes % 1 H ( - 0) % Nucleated RBC % Not Reportable Neutrophils # (Manual) 6.1 (1.5-6.6) 10^3/uL Lymphocytes # (Manual) 0.6 L (1.5-3.5) 10^3/uL Monocytes # (Manual) 0.3 (0.0-1.0) 10^3/uL Eosinophils # (Manual) 0.0 (0-0.7) 10^3/uL Basophils # (Manual) 0.0 (0-0.1) 10^3/uL Differential Comment MANUAL DIFFERENTIAL Platelet Estimate NORMAL (130-450,000) (NORMAL) Platelet Morphology NORMAL APPEARANCE (NORMAL) RBC Morph Micro Appear NORMAL APPEARANCE (NORMAL) Sodium 135 (135-145) mmol/L Potassium 3.7 (3.5-5.0) mmol/L Chloride 101 (101-111) mmol/L Carbon Dioxide 27 (21-32) mmol/L Anion Gap 7.0 (6-13) BUN 22 H (6-20) mg/dL Creatinine 0.7 (0.6-1.2) mg/dL Estimated GFR (MDRD) 107 (>89) Glucose 261 H (70-100) mg/dL Calcium 7.9 L (8.5-10.3) mg/dL Total Bilirubin 1.7 H (0.2-1.0) mg/dL AST 37 (10-42) IU/L ALT 34 (10-60) IU/L Alkaline Phosphatase 76 (42-121) IU/L Total Protein 5.5 L (6.7-8.2) g/dL Albumin 2.1 L (3.2-5.5) g/dL Globulin 3.4 (2.1-4.2) g/dL Albumin/Globulin Ratio 0.6 L (1.0-2.2) Assessment/Plan - Problem List (1) Intertrochanteric fracture of right hip Impression: Doing as well as can be expected. Will continue to try to mobilize. Qualifiers: Encounter type: initial encounter Fracture type: closed Fracture alignment: displaced Qualified Code(s): S72.141A - Displaced intertrochanteric fracture of right femur, initial encounter for closed fracture
[2018-05-28] MEDS: SODIUM CHLORIDE 0.9% 1,000 ML IV SCH (16:40)
--- NOTE | 2018-05-28 16:54 | PROVIDER PROGRESS NOTE ---
Subjective - Prog Note Date Prog Note Date: 05/28/18 Prog Note Time: 13:00 - Subjective Pt reports feeling: Improved Subjective: The patient says he feels a little bit better today. The pain in his leg is improved. He denies any fevers, chills, or shortness of breath. He denies any muscle spasms Current Medications - Current Medications Current Medications: Active Medications Generic Name Dose Route Start Last Admin Trade Name Freq PRN Reason Stop Dose Admin Acetaminophen 650 - 975 mg 05/26/18 10:23 05/26/18 17:17 Tylenol PO 650 mg Q4HR PRN Administration PAIN Allopurinol 150 mg 05/26/18 12:00 05/28/18 09:36 Zyloprim PO 150 mg DAILY AMI Administration Atorvastatin Calcium 20 mg 05/21/18 21:00 05/27/18 23:06 Lipitor PO 20 mg QPM AMI Administration Diphenhydramine HCl 25 mg 05/25/18 12:57 Benadryl PO Q4HR PRN Allergy Symptoms Escitalopram Oxalate 10 mg 05/26/18 12:00 05/28/18 09:36 Lexapro PO 10 mg DAILY AMI Administration Hydrocortisone Sodium Succinate 100 mg 05/25/18 13:00 05/28/18 14:29 Solu-Cortef IVP 100 mg TID AMI Administration Hydromorphone HCl 2 mg 05/22/18 08:26 05/27/18 17:08 Dilaudid (Vial) IVP 2 mg Q2H PRN Administration PAIN Sodium Chloride 1,000 mls @ 0 mls/hr 05/25/18 13:00 05/28/18 16:40 Normal Saline 0.9% IV 30 mls/hr .Q0M AMI Administration TKO Acetaminophen 100 mls @ 400 mls/hr 05/26/18 10:23 05/28/18 11:23 Ofirmev IV Infused Q6HR PRN Infusion PAIN Latanoprost 1 drops 05/21/18 21:00 05/27/18 21:45 Xalatan Ophth Drops EACHEYE 1 drops QPM AMI Administration Loperamide HCl 2 mg 05/21/18 15:29 Imodium PO DAILY PRN Diarrhea Loratadine 10 mg 05/26/18 12:00 05/28/18 09:36 Claritin PO 10 mg DAILY AMI Administration Morphine Sulfate 2 mg 05/21/18 15:15 05/24/18 00:53 Morphine IVP 2 mg Q2H PRN Administration PAIN Polyethylene Glycol 17 gm 05/22/18 09:00 05/28/18 09:43 Miralax PO Not Given DAILY AMI Prochlorperazine Edisylate 10 mg 05/26/18 10:23 Compazine Inj IVP Q6HR PRN Nausea / Vomiting Sodium Chloride 10 ml 05/26/18 17:00 05/28/18 16:41 Normal Saline Flush 0.9% IVP Not Given 0100,0900,1700 AMI Sodium Chloride 10 ml 05/26/18 10:23 05/28/18 05:15 Normal Saline Flush 0.9% IVP 10 ml PRN PRN Administration NEEDED PER PROVIDER ORDERS Sodium Chloride 1 gm 05/26/18 12:00 05/28/18 16:41 Salt Tab PO 1 gm BIDWM AMI Administration Tramadol HCl 50 mg 05/21/18 15:29 05/28/18 04:33 Ultram PO 50 mg Q6H PRN Administration PAIN Clopidogrel [Plavix] 75 mg PO DAILY 07/05/17 Latanoprost 0.005% Ophth Drops [Xalatan Ophth Drops] 1 drops EACHEYE QPM Allopurinol 150 mg PO DAILY 09/06/17 Loperamide HCl [Anti-Diarrheal] 2 mg PO Q2H PRN 09/06/17 Multivitamin [Multivitamins] 1 tab PO DAILY 09/06/17 Atorvastatin Calcium 20 mg PO QPM 05/22/18 Cholecalciferol (Vitamin D3) [Vitamin D] 2,000 unit PO DAILY 05/22/18 Escitalopram Oxalate [Lexapro] 20 mg PO DAILY 05/22/18 Loratadine [Claritin] 10 mg PO DAILY PRN 05/22/18 Objective - Vital Signs/Intake & Output Reviewed Vital Signs: Yes Vital Signs: Vital Signs x48h Temp Pulse Resp BP Pulse Ox 05/28/18 15:18 36.7 C 92 20 144/72 H 95 Intake & Output: Intake & Output 05/25/18 05/26/18 05/27/18 05/28/18 23:59 23:59 23:59 23:59 Intake Total 3271.00 3375.417 2642.5 1756 Output Total 2049 1525 2250 1500 Balance 1221.00 1850.417 392.5 256 - Objective General Appearance: positive: No acute distress, Alert Eyes Bilateral: positive: Normal inspection, PERRL, EOMI, No lid inflammation, Conjunctivae nml, No scleral icterus ENT: positive: ENT inspection nml, Pharynx nml, No signs of dehydration Neck: positive: Nml inspection, Thyroid nml, No JVD, Trachea midline. negative : Thyromegaly Respiratory: positive: Chest non-tender, No respiratory distress, Breath sounds nml. negative: Wheezes, Rales, Rhonchi Cardiovascular: positive: Regular rate & rhythm, No murmur, No gallop. negative : Extrasystoles Abdomen: positive: Non-tender, No organomegaly, Nml bowel sounds, No distention. negative: Guarding, Rebound Back: positive: Nml inspection. negative: CVA tenderness (R), CVA tenderness (L ) Skin: positive: Color nml, No rash, Warm, Dry. negative: Cyanosis Extremities: positive: Pedal edema, Other (Patient is status post surgical repair of right hip fracture. He is postop day #2. He has significant swelling to his right lower extremity from the pelvis to his toes.) Neurologic/Psychiatric: positive: Oriented x3, CN's nml (2-12), Sensation nml, Mood/affect nml, Slurred/abnml speech - Lab Results Fish Bones: 05/28/18 06:07 05/28/18 06:07 Other Labs: Lab Results x24hrs 05/28/18 05/28/18 05/25/18 Range/Units 06:07 06:07 13:19 WBC 7.1 (4.8-10.8) x10^3/uL RBC 3.05 L (4.70-6.10) 10^6/uL Hgb 9.2 L (14.0-18.0) g/dL Hct 26.9 L (42.0-52.0) % MCV 88.1 (80.0-94.0) fL MCH 30.1 (27.0-31.0) pg MCHC 34.2 (32.0-36.0) g/dL RDW 14.5 (12.0-15.0) % Plt Count 180 (130-450) 10^3/uL MPV 7.4 (7.4-11.4) fL Neut # (Auto) Not Reportable Lymph # (Auto) Not Reportable Hamlin # (Auto) Not Reportable Eos # (Auto) Not Reportable Baso # (Auto) Not Reportable Absolute Nucleated RBC Not Reportable Total Counted 100 Band Neuts % (Manual) 1 (0 - 10) % Abnorm Lymph % (Manual) 0 % Metamyelocytes % 1 H ( - 0) % Nucleated RBC % Not Reportable Neutrophils # (Manual) 6.1 (1.5-6.6) 10^3/uL Lymphocytes # (Manual) 0.6 L (1.5-3.5) 10^3/uL Monocytes # (Manual) 0.3 (0.0-1.0) 10^3/uL Eosinophils # (Manual) 0.0 (0-0.7) 10^3/uL Basophils # (Manual) 0.0 (0-0.1) 10^3/uL Differential Comment MANUAL DIFFERENTIAL Platelet Estimate NORMAL (130-450,000) (NORMAL) Platelet Morphology NORMAL APPEARANCE (NORMAL) RBC Morph Micro Appear NORMAL APPEARANCE (NORMAL) Sodium 135 (135-145) mmol/L Potassium 3.7 (3.5-5.0) mmol/L Chloride 101 (101-111) mmol/L Carbon Dioxide 27 (21-32) mmol/L Anion Gap 7.0 (6-13) BUN 22 H (6-20) mg/dL Creatinine 0.7 (0.6-1.2) mg/dL Estimated GFR (MDRD) 107 (>89) Glucose 261 H (70-100) mg/dL Calcium 7.9 L (8.5-10.3) mg/dL Total Bilirubin 1.7 H (0.2-1.0) mg/dL AST 37 (10-42) IU/L ALT 34 (10-60) IU/L Alkaline Phosphatase 76 (42-121) IU/L Total Protein 5.5 L (6.7-8.2) g/dL Albumin 2.1 L (3.2-5.5) g/dL Globulin 3.4 (2.1-4.2) g/dL Albumin/Globulin Ratio 0.6 L (1.0-2.2) Crossmatch IS Only See Detail ABX Reporting Has patient been on IV antibiotics over the past 48 hours?: No Assessment/Plan - Problem List (1) Intertrochanteric fracture of right hip Impression: The patient has had surgical repair of intertrochanteric enteric fracture of his right hip. I had a long discussion today with the patient and his regarding plans following his hospitalization. I offered Mr. Guadalupe rehabilitation with physical therapy however the patient just wants to go home. Of note is that he was declining steadily prior to coming into the hospital and spending more and more time in bed every day secondary to his prostate cancer. After he fractured his leg he was in bed for approximately 9 days before he was allowed to get up following his surgery. I gave the patient the option of going to rehab to try to get stronger but also, recognizing that the patient does have inoperable prostate cancer and this time is limited I offered him the option of just going home with hospice in place. He discussed this at length with his and I was present to answer any questions for them. At the end of discussion the patient his have elected for hospice services at home and I have put in referral. Qualifiers: Encounter type: initial encounter Fracture type: closed Fracture alignment: displaced Qualified Code(s): S72.141A - Displaced intertrochanteric fracture of right femur, initial encounter for closed fracture (2) Failure to thrive syndrome, adult Impression: The patient had been becoming increasingly bedbound prior to fracturing his hip according to his PCP. At this time it appears that the patient will be bedbound for a minimum of 6 days before he can be up following his surgery. Because of his already debilitated state due to his prostate cancer and stroke residual, he will likely experience rapid deconditioning which he will be unlikely to recover from. He has lost a significant amount of weight due to his metastatic prostate cancer. He may eat whatever he likes and nutrition has been consulted. (3) Pain due to fracture Impression: Improved, resolving. Pt denies muscle spasms today. POD #2 (4) Controlled type 2 diabetes mellitus without complication Impression: We have the patient on an insulin sliding scale for hyperglycemic coverage. His blood sugars have been well managed. Continue present care. 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 It is unlikely he will be able to participate in his physical therapy and will likely be discharged home with hospice care in place. He is not considered to be a candidate for any further cancer treatment at this time. (6) Hyponatremia Impression: Corrected, sodium level today is 135.
[2018-05-28] MEDS: ATORVASTATIN 10 MG TABLET PO SCH (20:45)
[2018-05-28] MEDS: HYDROmorphone 2 MG/ML VIAL IVP PRN (21:35)
[2018-05-28] MEDS: LATANOPROST 0.005% OPHTH DROPS EACHEYE SCH (21:40)
[2018-05-29] MEDS: HYDROCORTISONE SUCCINATE 100 MG/2 ML VIAL IVP SCH ×3 (06:11→21:44)
[2018-05-29] MEDS: LORATADINE 10 MG TABLET PO SCH (08:52)
[2018-05-29] MEDS: ALLOPURINOL 100 MG TABLET PO SCH (08:53)
[2018-05-29] MEDS: traMADol 50 MG TABLET PO PRN (08:53)
[2018-05-29] MEDS: ESCITALOPRAM 10 MG TABLET PO SCH (08:55)
[2018-05-29] MEDS: POLYETHYLENE GLYCOL 3350 17 GM PACKET PO SCH (08:56)
[2018-05-29] MEDS: SODIUM CHLORIDE 1 GM TABLET PO SCH ×2 (09:00→16:22)
[2018-05-29] MEDS: SODIUM CHLORIDE FLUSH 0.9% 10 ML SYRINGE IVP SCH ×2 (10:58→16:22)
[2018-05-29] MEDS ORDERED: ONDANSETRON 4 MG/2 ML VIAL IVP PRN (11:22)
[2018-05-29] MEDS: ACETAMINOPHEN 325 MG TABLET PO PRN (13:14)
--- NOTE | 2018-05-29 13:56 | PROVIDER PROGRESS NOTE ---
Subjective - Prog Note Date Prog Note Date: 05/29/18 Prog Note Time: 13:55 Objective - Vital Signs/Intake & Output Vital Signs: Vital Signs x48h Temp Pulse Resp BP Pulse Ox 05/29/18 08:00 36.5 C 82 16 137/74 H 94 Intake & Output: Intake & Output 05/26/18 05/27/18 05/28/18 05/29/18 23:59 23:59 23:59 23:59 Intake Total 3375.417 2642.5 2366 640 Output Total 1525 2250 3500 1350 Balance 1850.417 392.5 -1134 -710 - Objective General Appearance: positive: Lethargic Extremities: positive: Other (Still with large hematoma. Continue to try to mobilize.) - Lab Results Fish Bones: 05/28/18 06:07 05/28/18 06:07 Assessment/Plan - Problem List (1) Intertrochanteric fracture of right hip Impression: Will continue to try to mobilize. Home with hospice. Qualifiers: Encounter type: initial encounter Fracture type: closed Fracture alignment: displaced Qualified Code(s): S72.141A - Displaced intertrochanteric fracture of right femur, initial encounter for closed fracture
--- NOTE | 2018-05-29 15:50 | DISCHARGE SUMMARY ---
Discharge Summary Admit Date: 05/21/18 Discharge Date: 05/29/18 Discharging Provider: Anupama Ba DO Primary Care Provider: Charles Kelly MD Code Status: Do Not Attempt Resuscitation Condition at Discharge: Stable Discharge Disposition: 01 Home, Self Care - DIAGNOSES Admission Diagnoses: 1. Right intertrochanteric femur fracture 2. Failure to thrive 3. Hypertension 4. Hypertension 5. Type 2 diabetes mellitus 6. Metastatic prostate cancer, inoperative. 7. History of cerebral vascular accident Discharge Diagnoses with Status of Each Condition: 1. Right intertrochanteric femur fracture- The patient's surgery to repair the fracture was delayed for almost a week because of him coming in on Plavix which he has been taking since his stroke a few months ago. The leg was repaired and the patient's pain is well-managed at this time. With regards to rehab, I explained to the patient that he has been declining and becoming more bedbound even prior to the fracture, and that he has been in bed for about 10 days. The rule of thumb is 3 days of physical therapy for every day in bed to return to function. At this point, given the patient's inoperable and widely metastatic prostate cancer he is electing to go home with hospice care rather than to go to rehab dilatation. 2. Failure to thrive- The patient has been declining in function and weight, most likely due to his inoperable metastatic prostate cancer. This is expected. 3. Hypertension- Patient's blood pressure has been fairly well controlled while he is been in the hospital. 4. Type 2 diabetes mellitus-We have the patient on an insulin sliding scale for hyperglycemic coverage. His blood sugars have been well managed. 5. 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 It is unlikely he will be able to participate in his physical therapy and will likely be discharged home with hospice care in place. He is not considered to be a candidate for any further cancer treatment at this time. 6. History of cerebral vascular accident-Patient has residual weakness and dysarthria. He has mentioned at more than one time during his hospitalization that he wishes he had when he had his stroke. He will be going home with hospice. - HPI History of Present Illness: From Dr. Link's H&P: Patient is an 87-year-old white male who unfortunately has been failing in the last few months in relation to a diagnosis of metastatic prostate cancer. He had a kidney stone in June 2017. He was seen in the emergency room for that, and in the process of evaluating the CT of the abdomen for that was seen to have extensive PET pelvic adenopathy and a large prostate. He has been treated with Lupron. He was seen for a fall that happened on May 11 following that hospitalization. He was seen by an emergency room physician and evaluated and sent home was felt was felt to be more from weakness and failure to thrive and from acute medical problem. Dr. Bryan saw him on May 16 and noted the frail appearance, failure to thrive, the unfortunate disease progression with more adenopathy, and metastatic disease. Bone scan on 05/08/2010 compared with August 2017 shows a lesion at T7, L1 and compression fractures and rib fractures. Tumor is also: Causing lobular protrusion into the bladder base from the prostate that was not present on his previous CT. Today, while standing in his room, he attempted to pull on some socks, fell and hit his head against a door jam. He did not lose consciousness but can no longer ambulate because the hip pain. He was brought to the emergency room was evaluated and found to have a mildly displaced angulated right intertrochanteric hip fracture. Head CT showed no intracranial abnormalities or significant change from the previous CT. He was admitted to the hospital for fixation of the fracture but there was a delay because he had been on Plavix for the stroke that happened on 05/19/2016. His hip was repaired about [address] Shonna Painting and he has been recovering since that time. We had a long discussion yesterday and he has decided to go home with hospice rather than to go rehab. - HOSPITAL COURSE Hospital Course: The patient was admitted to the hospital but unfortunately had to wait for 6 days to have surgery on his hip as he had been on Plavix. The hip was repaired and the patient has experienced relief of his pain since that time. He has now decided to go home with hospice rather than to go to rehab. - ALLERGIES Allergies/Adverse Reactions: Allergies Allergy/AdvReac Type Severity Reaction Status Date / Time No Known Drug Allergies Allergy Verified 05/11/18 18:42 - MEDICATIONS Home Medications: Ambulatory Orders Medication Instructions Recorded Confirmed Clopidogrel [Plavix] 75 mg PO DAILY 07/05/17 05/21/18 Latanoprost 0.005% Ophth Drops 1 drops EACHEYE QPM 07/05/17 05/22/18 [Xalatan Ophth Drops] Allopurinol 150 mg PO DAILY 09/06/17 05/22/18 Loperamide HCl [Anti-Diarrheal] 2 mg PO Q2H PRN 09/06/17 05/22/18 Multivitamin [Multivitamins] 1 tab PO DAILY 09/06/17 05/21/18 Atorvastatin Calcium 20 mg PO QPM 05/22/18 05/22/18 Cholecalciferol (Vitamin D3) 2,000 unit PO DAILY 05/22/18 05/22/18 [Vitamin D] Escitalopram Oxalate [Lexapro] 20 mg PO DAILY 05/22/18 05/22/18 Loratadine [Claritin] 10 mg PO DAILY PRN 05/22/18 05/22/18 - PHYSICAL EXAM AT DISCHARGE General Appearance: positive: No acute distress, Alert Eyes Bilateral: positive: Normal inspection, PERRL, EOMI, No lid inflammation, Conjunctivae nml, No scleral icterus ENT: positive: Pharynx nml, No signs of dehydration, Other (Left-sided facial droop noted). negative: Purulent nasal drainage Neck: positive: Nml inspection, Thyroid nml, No JVD, Trachea midline. negative : Thyromegaly Respiratory: positive: Chest non-tender, No respiratory distress, Breath sounds nml. negative: Wheezes, Rales, Rhonchi Cardiovascular: positive: Regular rate & rhythm, No murmur, No gallop Peripheral Pulses: positive: 1+ Abdomen: positive: Non-tender, No organomegaly, Nml bowel sounds, No distention. negative: Guarding, Rebound Back: positive: Nml inspection. negative: CVA tenderness (R), CVA tenderness (L ) Skin: positive: Color nml, No rash, Warm, Dry. negative: Cyanosis Extremities: positive: Non-tender, Full ROM, Nml appearance, No pedal edema Neurologic/Psychiatric: positive: Oriented x3, Slurred/abnml speech, Depressed mood/affect - LABS Result Diagrams: 05/28/18 06:07 05/28/18 06:07 - DIAGNOSTIC IMAGING Diagnostic Imaging Results: Final report reviewed Diagnostic Imaging Results Comments: EXAM: RIGHT HIP AND PELVIS RADIOGRAPHY EXAM DATE: 05/21/2018 02:44 PM. HISTORY: Right hip pain. COMPARISONS: None. TECHNIQUE: 1 view of the pelvis and 1 view of the hip. FINDINGS: Bones: Mildly angulated and displaced right intertrochanteric fracture is seen. The remainder osseous structures are intact. Bones are slightly osteopenic. Joints: There is mild degenerative changes seen in the hip joints, right side greater than left side. Additional degenerative changes are seen in the lower spine. Soft Tissues: Normal. No soft tissue swelling. IMPRESSION: Mildly displaced and angulated right intertrochanteric fracture. - FOLLOW UP Follow Up: Patient is going home with hospice. He will be attended to by Dr. Fred Barrientos. - TIME SPENT Time Spent in Discharge (Minutes): 40
--- NOTE | 2018-05-29 16:23 | Discharge Plan ---
Discharge Plan Disposition: 01 Home, Self Care Condition: Stable Diet: Regular Activity Restrictions: Activity as Tolerated Shower Restrictions: No Driving Restrictions: No Assistance Devices: Walker Weight Bearing: Partial Weight No Smoking: If you smoke, Please STOP! Call for help. Follow-up with: Charles Kelly MD [Primary Care Provider] -
--- NOTE | 2018-05-29 19:12 | XRAY Report ---
Procedure Date: 05/26/2018 Accession Number: [id number] / [id number] Procedure: XR - Hip w/Pelvis 1V RT CPT Code: FULL RESULT: EXAM: Hip w/Pelvis 1V RT DATE: 05/26/2018 9:52 AM CLINICAL HISTORY: RT HIP FRACTURE COMPARISON: Radiographs 05/21/2018. TECHNIQUE: 1 intraoperative view of the right hip is submitted. The radiologist was not present. FINDINGS: Portions of an intramedullary nail and a cannulated partially threaded screw on a Ann wire are identified. IMPRESSION: Intraoperative image during surgical fixation. RADIA
[2018-05-29] MEDS: ATORVASTATIN 10 MG TABLET PO SCH (21:44)
[2018-05-29] MEDS: LATANOPROST 0.005% OPHTH DROPS EACHEYE SCH (21:44)
[2018-05-30] MEDS: SODIUM CHLORIDE 0.9% 1,000 ML IV SCH (02:22)
[2018-05-30] MEDS: SODIUM CHLORIDE FLUSH 0.9% 10 ML SYRINGE IVP SCH (02:23)
[2018-05-30] MEDS: traMADol 50 MG TABLET PO PRN (04:40)
[2018-05-30] MEDS: SODIUM CHLORIDE FLUSH 0.9% 10 ML SYRINGE IVP PRN (05:23)
[2018-05-30] MEDS: HYDROCORTISONE SUCCINATE 100 MG/2 ML VIAL IVP SCH (05:23)
[2018-05-30 08:20] VITALS: BP 155/88
[2018-05-30] MEDS: ALLOPURINOL 100 MG TABLET PO SCH (10:42)
[2018-05-30] MEDS: SODIUM CHLORIDE 1 GM TABLET PO SCH (10:42)
[2018-05-30] MEDS: LORATADINE 10 MG TABLET PO SCH (10:43)
[2018-05-30] MEDS: ESCITALOPRAM 10 MG TABLET PO SCH (10:43)
[2018-05-30] MEDS: POLYETHYLENE GLYCOL 3350 17 GM PACKET PO SCH (10:43)
--- NOTE | 2018-05-30 11:17 | Discharge Plan ---
Discharge Plan Disposition: 50 Hospice/Home DC/Xfer Condition: Stable Diet: Diabetic Activity Restrictions: Activity as Tolerated Shower Restrictions: No Driving Restrictions: No Assistance Devices: Walker Weight Bearing: Partial Weight Follow-Up Care: Hospice No Smoking: If you smoke, Please STOP! Call for help. Follow-up with: Charles Kelly MD [Primary Care Provider] -
--- NOTE | 2018-05-30 13:08 | PROVIDER PROGRESS NOTE ---
Subjective - Prog Note Date Prog Note Date: 05/30/18 Prog Note Time: 13:07 - Subjective Pt reports feeling: No change Objective - Vital Signs/Intake & Output Vital Signs: Vital Signs x48h Temp Pulse Resp BP Pulse Ox 05/30/18 08:00 37.0 C 92 18 155/88 H 96 Intake & Output: Intake & Output 05/27/18 05/28/18 05/29/18 05/30/18 23:59 23:59 23:59 23:59 Intake Total 2642.5 2366 1190 1420 Output Total 2250 3500 2700 1700 Balance 392.5 -1134 -1510 -280 - Objective Extremities: positive: Other (Dressing dry. Hematoma unchanged.) - Lab Results Fish Bones: 05/28/18 06:07 05/28/18 06:07 Assessment/Plan - Problem List (1) Intertrochanteric fracture of right hip Impression: Discharge plans noted. Qualifiers: Encounter type: initial encounter Fracture type: closed Fracture alignment: displaced Qualified Code(s): S72.141A - Displaced intertrochanteric fracture of right femur, initial encounter for closed fracture
== END 2018-05-30 14:25 | disposition home or self-care (01) | DRG 481 ==
LOC: ED 13:46 → MS2 15:13
PROVIDERS: ADMIT Specialist; ATTEND Hospitalist
PROC: 30233N1 Transfusion of Nonautologous Red Blood Cells into Peripheral Vein, Percutaneous Approach (ICD-10-PCS; 2018-05-26)
PROC: 0QS606Z Reposition Right Upper Femur with Intramedullary Internal Fixation Device, Open Approach (ICD-10-PCS; principal; 2018-05-26 07:30)
DX: S72.141A Displaced intertrochanteric fracture of right femur, initial encounter for closed fracture (principal); C79.51 Secondary malignant neoplasm of bone; E87.1 Hypo-osmolality and hyponatremia; W18.30XA Fall on same level, unspecified, initial encounter; M85.80 Other specified disorders of bone density and structure, unspecified site; C61 Malignant neoplasm of prostate; R33.8 Other retention of urine; H91.90 Unspecified hearing loss, unspecified ear; D64.9 Anemia, unspecified; Z79.01 Long term (current) use of anticoagulants; I69.819 Unspecified symptoms and signs involving cognitive functions following other cerebrovascular disease; I69.891 Dysphagia following other cerebrovascular disease; I69.828 Other speech and language deficits following other cerebrovascular disease; R13.10 Dysphagia, unspecified; Z87.891 Personal history of nicotine dependence; I10 Essential (primary) hypertension; E78.5 Hyperlipidemia, unspecified; E11.9 Type 2 diabetes mellitus without complications; R62.7 Adult failure to thrive; K52.9 Noninfective gastroenteritis and colitis, unspecified; R63.4 Abnormal weight loss; Z66 Do not resuscitate
CPT/HCPCS: 36415; 70450; 71045; 72125; 80048; 80053; 83690; 85025; 85610; 86850; 86900; 86901; 86920; 93005; 96374; 96375; 99283; 99285

== ENCOUNTER 2018-05-30 14:27 | Outpatient (CLI) | payer MEDICARE, BC | END 2018-05-30 14:28 | disposition hospice, home (50) | LOC: EMS 14:27 | PROVIDERS: ATTEND Surgery | DX: S72.141A Displaced intertrochanteric fracture of right femur, initial encounter for closed fracture (principal); C61 Malignant neoplasm of prostate; C79.9 Secondary malignant neoplasm of unspecified site; W19.XXXA Unspecified fall, initial encounter | CPT/HCPCS: A0425; A0428 ==